=== PATIENT | female | born 1970 | race Caucasian/White ===

== ENCOUNTER → 2020-06-03 14:23 | Outpatient (BNVA) | payer BC, SELFPAY | PROVIDERS: PCP Internal Medicine; Visit Provider Hospitalist ==

== ENCOUNTER → 2020-12-03 09:27 | Outpatient (BNVA) | payer BC, MEDICARE, SELFPAY | PROVIDERS: PCP Internal Medicine; Visit Provider Hospitalist | DX: R91.8 Other nonspecific abnormal finding of lung field (principal) ==

== ENCOUNTER 2021-01-06 10:34 | Outpatient (REF) | payer BC, MEDICARE, SELFPAY ==
--- NOTE | ~2021-01-06 | CT_ITS ---
EXAMINATION: CT CHEST WITHOUT CONTRAST CLINICAL INFORMATION: Sarcoidosis COMPARISON: None TECHNIQUE: Multidetector volumetric CT imaging of the chest was done. Axial MIP volume rendering provided. Sagittal and coronal reformatted images were obtained. This CT examination was performed using dose optimization techniques as appropriate, variously including the following: *Automated exposure control *Adjustment of mA and/or kV according to patient size (this includes techniques or standardized protocols for targeted exams where dose is matched to indication/reason for exam; i.e. extremities or head) *Use of iterative reconstruction technique DLP: 245 mGy-cm FINDINGS: CORN GRINDER: Normal LUNGS: The lungs are clear with no evidence of inflammation or nodules. MEDIASTINUM: The mediastinum is normal. PLEURA: There is no pleural effusion. No pleural mass or thickening. AXILLA: No lymphadenopathy. UPPER ABDOMEN: The gallbladder has been removed. There may be diverticulosis of the colon. OSSEOUS STRUCTURES: There are degenerative changes of the spine. CT/CT chest wo con IMPRESSION: Normal chest CT. No evidence of sarcoidosis. Fleischner guidelines were followed.
== END 2021-01-06 10:35 | disposition home or self-care (01) ==
LOC: HO.CT 10:34
PROVIDERS: PCP Internal Medicine; Visit Provider Hospitalist
DX: D86.9 Sarcoidosis, unspecified (principal); R91.8 Other nonspecific abnormal finding of lung field
CPT/HCPCS: 71250

== ENCOUNTER → 2022-08-06 14:56 | Outpatient (BNVA) | payer BC, MEDICARE, SELFPAY | PROVIDERS: PCP Internal Medicine; Visit Provider Nurse Practitioner Family ==

== ENCOUNTER 2022-09-21 13:30 | Outpatient (REF) | payer BC, MEDICARE, SELFPAY ==
--- NOTE | ~2022-09-21 | CT_ITS ---
EXAMINATION: CT CHEST WITHOUT CONTRAST CLINICAL INFORMATION: Follow-up 2020 at which time diagnosis of sarcoidosis was questioned but CT was negative. COMPARISON: 01/06/2021 CT TECHNIQUE: Multidetector volumetric CT imaging of the chest was done. Axial MIP volume rendering provided. Sagittal and coronal reformatted images were obtained. This CT examination was performed using dose optimization techniques as appropriate, variously including the following: *Automated exposure control *Adjustment of mA and/or kV according to patient size (this includes techniques or standardized protocols for targeted exams where dose is matched to indication/reason for exam; i.e. extremities or head) *Use of iterative reconstruction technique DLP: 244 mGy-cm FINDINGS: DECK OFFICER: Negative LUNGS: Trachea and bronchi are patent. Bilateral patchy opacities have developed, in the anterior right upper lobe, 6:95, medial right lower lobe, 6:102, left upper lobe adjacent to the major fissure, 6:95 and left lower lobe, 6:131. No lung nodules. MEDIASTINUM: Unremarkable thyroid. Interval enlargement mediastinal lymph nodes. In the anterior mediastinum, 2 adjacent 8 mm lymph nodes are now seen. [place] of prevascular lymph nodes now measures 2.9 cm. Right paratracheal lymph and subcarinal lymph nodes each measure 1.7 cm in greatest diameter. There has also been enlargement of paracardiac lymph nodes, largest measuring 2.2 cm. Limited evaluation of the carine bilaterally without IV contrast but no definite lymphadenopathy appreciated. Small hiatal hernia. HEART AND GREAT VESSELS: Heart is not enlarged. No pericardial effusion. Degree of coronary calcifications: None. Aorta is nonaneurysmal with mild atherosclerotic calcifications of the arch and branch vessels. Nonenlarged pulmonary arteries. PLEURA: There is no pleural effusion. No pleural mass or thickening. AXILLA: No lymphadenopathy. UPPER ABDOMEN: Enlarged, but homogeneous appearing liver on noncontrast study. Distended debris-filled stomach. Status post cholecystectomy. OSSEOUS STRUCTURES: No osseous lesions. CT/CT chest wo IV con IMPRESSION: Interval development of irregular, patchy pulmonary opacities and mediastinal lymphadenopathy. Findings are nonspecific. Sarcoidosis remains in long list of differential diagnoses. Hepatomegaly. Fleischner guidelines were followed.
[2022-09-21 14:55] LABS: Basophils Absolute Auto 0.1 X10*3/uL (0.0-0.2); Basophils Percent Auto 0.7 % (0-2); Eosinophils Absolute Auto 0.6 X10*3/uL (0.0-0.4); Eosinophils Percent Auto 3.7 % (0-4); Hematocrit 35.6 % (37.0-47.0); Hemoglobin 11.6 g/dl (12.0-16.0); Imm Gran Abs Auto 0.11 X10*3/uL (0.00-0.03); Imm Gran Pct Auto 0.7 % (0.0-0.4); Lymphocytes Absolute Auto 6.2 X10*3/uL (1.2-4.9); Lymphocytes Percent Auto 40.8 % (20-40); MANUAL DIFF FLAG SCAN; Mean Corpuscular HGB Conc 32.6 g/dl (31.0-35.0); Mean Corpuscular Hemoglobin 27.2 pg (27.0-33.0); Mean Corpuscular Volume 83.6 fL (80.0-98.0); Mean Platelet Volume 9.6 fL (9.4-12.3); Monocytes Absolute Auto 0.9 X10*3/uL (0.1-1.2); Monocytes Percent Auto 6.1 % (2-11); Neutrophils Absolute Auto 7.3 x10*3/uL (2.0-8.3); Platelet Count 382 X10*3/uL (160-400); Red Blood Count 4.26 X10*6/uL (4.20-5.50); Red Cell Distribution Width 13.5 % (11.0-16.0); SCAN SMEAR FLAG 1; White Blood Count 15.1 X10*3/uL (4.8-10.8)
[2022-09-21 15:26] LABS: SLIDE REVIEW VERIFIED
[2022-09-21 15:39] LABS: Alanine Aminotransferase 12 U/L (0-31); Albumin Level 3.5 g/dL (3.5-5.0); Alkaline Phosphatase 113 U/L (39-117); Anion Gap 14 (12-20); Aspartate Amino Transferase 12 U/L (5-31); Bilirubin Total 0.3 mg/dL (0.0-1.0); Blood Urea Nitrogen 30 mg/dL (9-16); Carbon Dioxide 25 mmol/L (22-29); Chloride 100 mmol/L (96-108); Estimated Glomerular Filt Rate 36; Glucose Random 270 mg/dL (60-115); Potassium 3.1 mmol/L (3.3-5.1); Sodium 136 mmol/L (135-145); Total Protein 7.9 g/dL (6.5-8.0)
[2022-09-22 14:19] LABS: Immunoglobulin G Subclass 1 884 mg/dL (382-929); Immunoglobulin G Subclass 2 419 mg/dL (241-700); Immunoglobulin G Subclass 3 54 mg/dL (22-178); Immunoglobulin G Subclass 4 16.3 mg/dL (4-86); Immunoglobulin G Total 1361 mg/dL (600-1640)
[2022-09-22 15:54] LABS: IgA 747 mg/dL (47-310); IgG 1559 mg/dL (600-1640); IgM 199 mg/dL (50-300)
[2022-09-25 20:18] LABS: Angiotensin Converting Enzyme 91.9 U/L (9-67)
== END 2022-09-21 13:31 | disposition home or self-care (01) ==
LOC: HO.RESP 13:30
PROVIDERS: PCP Internal Medicine; Visit Provider Nurse Practitioner Family
DX: D86.9 Sarcoidosis, unspecified (principal); R91.8 Other nonspecific abnormal finding of lung field; J45.909 Unspecified asthma, uncomplicated
CPT/HCPCS: 36415; 71250; 80053; 82164; 82784; 85025; 94010; 94729

== ENCOUNTER 2022-09-27 14:24 | Outpatient (AMB) | payer BC, MEDICARE, SELFPAY ==
[2022-09-27 14:34] VITALS: BP 120/68; PULSE 86; O2SAT 90
--- NOTE | 2022-09-27 14:34 | MHC.OFFVIS ---
Intake Vital Signs 09/27/22 14:34 Height 5 ft 8 in BP 120/68 Blood Pressure Location Rt brachial Position Sitting Pulse 86 Pulse Source Pulse Oximeter Pulse Oximetry (%) 90 L Oxygen Delivery Method Room Air Intake Visit Reasons: follow up after CT/PFT Intake Note: pt is here for follow up of testing, she found the breathing test very difficult. Audiology Assistant Required: No Allergies dulaglutide [Trulicity] Allergy (Severe, Verified 09/27/22 14:38) Pancreatitis levofloxacin [Levaquin] Allergy (Severe, Verified 09/27/22 14:38) Rash PCN Allergy (Severe, Uncoded 09/27/22 14:38) Anaphylaxis Sulfa Drugs Allergy (Severe, Uncoded 09/27/22 14:38) Rash HPI HPI Comments History of Present Illness Details The patient is a 52-year-old woman with a known history of nodular sarcoid. She also has a history of diabetes. Since we last spoke the patient has continued to take to 6 tablets of methotrexate. She did try weaning down the Medrol to 1 tablet. However, she became symptomatic with worsening respiratory symptoms. Had dyspnea, coughing and wheezing. Moderate in severity. At which point she had to take a burst of steroids. She has only had to do that once over the summer. Right now she is back to baseline. We did review her CT scan of the chest that she had recently over the summer of 2017 at [facility] demonstrating stable pulmonary nodules with significant interval improvement. No evidence of any active disease at this time. 06/27/19 The patient has a telephone visit. Overall she is doing okay. She is complaining of increasing shortness of breath and wheezing at times. She had to increase her Medrol. In addition to that she has been taking additional methotrexate at times. At this point we can maximize methotrexate to a tablets a week. Hopefully also by doing so she can start weaning off the Medrol. Her sugars have been better controlled. Over her sarcoid also appears to be in reasonable control on the methotrexate. Therefore, the patient is able to continue to take her children and her family without any limitations from a medical standpoint. 10/04/2020 the patient is here for pulmonary follow-up visit. Since the last spoke she has had many issues. She had a stroke and had to have surgery. In addition to that she is dealing with significant ankle pain is likely going to have to have surgery for that as well. Believe she has a Charcot joint as per the patient's description. She continues on the methotrexate. She understands the methotrexate is immuno compromising. Therefore the patient has increased risk of infections. We did talk about considering to decrease the dose, but, she was symptomatic on the lower dose. She has not had a CT scan more than a year. Her pulmonary nodules were significant the time although the high got better with the methotrexate. The do need follow-up. I am hopeful that with him follow-up with the pulmonary nodules and hopefully decrease her methotrexate if possible. 09/27/2022 the patient is here for pulmonary follow-up visit. She has continued to have worsening shortness of breath cough and chest tightness and chest pain. Moderate severity. She had been on Medrol in addition to methotrexate but she stopped using her medication she initially did well and then her symptoms are coming back as far as her sarcoidosis is concerned. The patient did have an evaluation here and had a CT scan of the chest demonstrating mediastinal and hilar adenopathy in addition to some nodular opacities suggestive of sarcoidosis. In addition to that she had blood work including an elevated [place] level. Her renal functions also demonstrates some renal insufficiency. Therefore, the patient is stands that she may have multiple organ involvement in regards of her sarcoidosis. She needs to start therapy. She did well on methotrexate. She has also been on Medrol which seems to be helping her symptoms. [facility] Medical History (Updated 12/03/20 @ 20:09 by Micah Mackenzie MD) Asthma Bronchitis Dysphagia Pulmonary nodules Sarcoidosis Social History Patient Tobacco Use Status: Former Tobacco user Tobacco use type: Cigarette Years Smoked: 10 years Review of Systems Const Reports fatigue, Denies fever(s) and Denies night sweats ENT Reports Normal hearing present, Denies change in voice, Denies lip swelling, Denies mouth pain and Denies tongue swelling Card Denies chest pain and Reports dyspnea Resp Reports cough, Reports dyspnea and Reports wheezing Musc Reports abnormal gait, Reports arthralgias and Reports limited range of motion Neuro Reports Normal hearing present, Denies Neuro-related abnormal movements and Reports abnormal gait Psych Denies no additional complaints Endo Reports fatigue Bala/Lymph Denies easy bleeding and Denies lymphadenopathy Aller/Immun Denies lip swelling, Denies tongue swelling and Reports wheezing Physical Exam Vital Signs: Last Vital Signs Pulse 86 09/27/22 14:34 BP 120/68 09/27/22 14:34 Pulse Ox 90 L 09/27/22 14:34 Oxygen Delivery Method Room Air 09/27/22 14:34 Const General: cooperative, healthy appearing, comfortable, no acute distress, well developed and alert Nutritional Appearance: obese Orientation/consciousness: patient oriented x3 Limitations: wheelchair HEENT Head: Yes normal to inspection, Yes normocephalic and Yes atraumatic Ears: hearing grossly normal bilaterally and external ears normal Eyes General: appearance normal, both eyes and all related structures Eyelids: Yes eyelids normal Sclerae: sclerae normal EOM: EOMs intact bilaterally Neck Neck: Yes normal visual inspection and Yes no lymphadenopathy Lymphatic: no lymphadenopathy noted Chest Chest palpation & inspection: normal inspection of the chest Resp Effort & Inspection: normal respiratory effort, able to speak in complete sentences, no audible wheezes, no cough, no stridor, not tachypneic, no tripod positioning and no use of accessory muscles Auscultation: clear to auscultation bilaterally Cardio Jugular venous distension: no JVD Rate: regular rate Rhythm: regular rhythm Skin Other: warm, dry General skin exam: mottling Neuro General: patient oriented x3 Cranial nerves: Yes Normal hearing present Cognition (Neuro): normal cognition Extrem General: Yes no clubbing, cyanosis or edema Psych Appearance: grossly normal and well kempt Speech and movement: Normal speech and movement present and Clear speech present Affect: normal affect Attitude: cooperative Thought process: Normal thought process present Thought content: Normal thought content present Insight: Good insight present (Psych) Judgement: Good judgement present (Psych) Assessment & Plan Assessment & Plan (1) Sarcoidosis: Code(s): D86.9 - Sarcoidosis, unspecified (2) Pulmonary nodules: Code(s): R91.8 - Other nonspecific abnormal finding of lung field (3) Asthma: Code(s): J45.909 - Unspecified asthma, uncomplicated Qualifiers: Asthma severity: moderate Asthma persistence: persistent Asthma complication type: with acute exacerbation Qualified Code(s): J45.41 - Moderate persistent asthma with (acute) exacerbation Plan continue medrol 4mg daily start MTX 10mg weekly Folic acid continue respiratory therapy Will need to repeat bloodwork in 6-8 weeks F/U 6-8 weeks Orders: Orders Angiotensin Converting Enzyme Today D86.9 - Sarcoidosis, unspecified Complete Blood Count Auto Diff Today D86.9 - Sarcoidosis, unspecified Basic Metabolic Panel Today D86.9 - Sarcoidosis, unspecified Liver Panel Today D86.9 - Sarcoidosis, unspecified Erythrocyte Sedimentation Rate Today D86.9 - Sarcoidosis, unspecified Medications: New methotrexate sodium 10 mg (4 x 2.5 mg) PO QWEEK 16 tabs 8RF 28 days folic acid 1 mg PO DAILY 30 tabs 11RF budesonide-formoterol 160-4.5 mcg/actuation (Symbicort) 2 puffs inhalation BID 10.2 grams 11RF 30 days J44.9 - Chronic obstructive pulmonary disease, unspecified Changed From methylprednisolone 4 mg PO Q8H PRN 15 tabs 0RF shortness of breath or wheezing To methylprednisolone 4 mg PO DAILY PRN 30 tabs 6RF shortness of breath or wheezing 30 days Coding Level of Care Code Est Pt Level 4 (90459) Diagnoses Sarcoidosis D86.9 Pulmonary nodules R91.8 Asthma J45.41 Asthma severity: moderate Asthma persistence: persistent Asthma complication type: with acute exacerbation Time Spent (min) 20
== END 2022-09-27 15:09 | disposition home or self-care (01) ==
PROVIDERS: PCP Internal Medicine; Visit Provider Hospitalist
DX: D86.9 Sarcoidosis, unspecified (principal); R91.8 Other nonspecific abnormal finding of lung field; J45.41 Moderate persistent asthma with (acute) exacerbation
CPT/HCPCS: 99214

== ENCOUNTER → 2022-09-27 14:24 | Outpatient (BNVA) | payer BC, MEDICARE, SELFPAY | PROVIDERS: PCP Internal Medicine; Visit Provider Hospitalist ==

== ENCOUNTER 2022-11-12 12:48 | Outpatient (AMB) | payer BC, MEDICARE, SELFPAY ==
[2022-11-12 12:59] VITALS: BP 158/90; PULSE 86; O2SAT 98
--- NOTE | 2022-11-12 12:59 | MHC.OFFVIS ---
Intake Vital Signs 11/12/22 12:59 Height 5 ft 8 in BMI Reason not done Patient refused/unable BP 158/90 H Blood Pressure Location Rt brachial Position Sitting Pulse 86 Pulse Source Pulse Oximeter Pulse Oximetry (%) 98 Comment Pt stated weight is 198 lbs Intake Visit Reasons: Sarcoidosis Intake Note: New pt presents today for consult to discuss Sarcoidosis, referred by pulm. Academy Education Director Required: No Accompanied by: Spouse Carlos Allergies dulaglutide [Trulicity] Allergy (Severe, Verified 11/12/22 13:11) Pancreatitis levofloxacin [Levaquin] Allergy (Severe, Verified 11/12/22 13:11) Rash PCN Allergy (Severe, Uncoded 11/12/22 13:11) Anaphylaxis Sulfa Drugs Allergy (Severe, Uncoded 11/12/22 13:11) Rash Medication List - Last Reconciled 11/12/22 by Kem Silva MD albuterol sulfate 90 mcg/actuation 2 puffs inhalation Q6H PRN albuterol sulfate 2.5 mg (3 mL) inhalation Q6H PRN 30 days aspirin 81 mg PO DAILY benzonatate 100 mg PO BID PRN 30 days budesonide-formoterol 160-4.5 mcg/actuation (Symbicort) 2 puffs inhalation BID 30 days ciprofloxacin HCl 500 mg PO BID dextromethorphan-guaifenesin 30-600 mg (Mucinex DM) 1 tab PO Q12H PRN doxycycline hyclate 100 mg PO BID 10 days folic acid 1 mg PO DAILY methotrexate sodium 10 mg (4 x 2.5 mg) PO QWEEK 28 days methylprednisolone 4 mg PO DAILY PRN 30 days prednisone PO daily; Take 2 tabs daily x 5 days, then 1 tablet daily x 5 days 10 days HPI HPI Comments History of Present Illness Details This is a 52-year-old female with past medical history of sarcoidosis who presents for follow-up. Per patient, Back in 2014 patient was found to have a mass in her upper chest, a biopsy was performed which was inconclusive, postoperatively patient was found to have multiple necrotic lymph nodes in her abdomen and pelvis, she went for an exploratory laparotomy and multiple lymph nodes were removed. At that time she was diagnosed with sarcoidosis. She was on Medrol initially then methotrexate was added afterwards. Per patient she had multiple large lung nodules. She was taking Medrol 4 mg daily and methotrexate 4 tabs once weekly for years until 2020 when her Medrol and methotrexate were discontinued. A few months ago she started having a flare-up of her sarcoidosis. She was restarted on Medrol 4 mg daily and methotrexate 4 tabs once weekly. She states that she also gets prednisone tapers as needed for flare-ups. Back in August she was diagnosed with strep throat, she took antibiotics, she had another strep infection a few weeks ago. Patient stated that she had a right ankle fracture a few years ago and postop she developed Charcot's joint right foot, she can hardly walk which is why she is in a wheelchair. She also stated that she had 2 strokes 3 years ago. Mentions that she had studies for peripheral vascular disease for both lower extremities and was told that she had good circulation She states that back in September she was starting to have more joint pain which was improved with methotrexate and Medrol, states that prednisone however causes whole body swelling. States that her aunt has MS. [facility] Medical History (Updated 11/12/22 @ 14:22 by Kem Silva MD) Asthma Bronchitis Dysphagia Sarcoidosis Pulmonary nodules Family History Daughter No problems noted. Maternal Aunt Multiple sclerosis Social History Patient Tobacco Use Status: Former Tobacco user Tobacco use type: Cigarette Years Smoked: 10 years Female Reproductive History Menstrual Total pregnancies: 3 Ab spontaneous: 1 Review of Systems Const Reports fatigue and Reports weakness Eyes Reports dry eyes and Reports itchy eyes ENT Reports dysphagia and Reports dry mouth Card Reports dyspnea and Reports dyspnea on exertion Resp Reports cough, Reports dyspnea and Reports dyspnea on exertion GI Reports dysphagia Musc Reports arthralgias, Reports joint swelling, Reports numbness, Reports radiating pain into limb and Reports tingling Skin/Breast Reports alopecia and Reports unusual bruising Neuro Reports numbness, Reports tingling and Reports weakness Psych Reports abnormal sleep pattern, Reports anxiety and Reports depression Endo Reports fatigue Aller/Immun Reports itchy eyes Physical Exam Const General: cooperative Nutritional Appearance: obese Orientation/consciousness: patient oriented x3 Limitations: wheelchair HEENT Head: Yes normocephalic and Yes atraumatic Mouth: moist mucous membranes Resp Effort & Inspection: normal respiratory effort and able to speak in complete sentences Cardio Rate: regular rate GI Palpation (GI): Soft to palpation and nontender Skin Other: Purplish discoloration of her legs Cool to touch Neuro General: patient oriented x3 Extrem Other: Mild swollen left 2nd and 3rd MCPs Positive Tinel sign on the left with electric shock sensation going to the left thumb and left ring finger (? Cubital tunnel) Negative Spurling's test No active synovitis otherwise Normal range of motion of both hands, elbows, shoulders without pain Normal nailfold capillaroscopy Assessment & Plan Assessment & Plan (1) Sarcoidosis: Code(s): D86.9 - Sarcoidosis, unspecified Plan: This is a 52-year-old female with past medical history of sarcoidosis diagnosed in 2014, according to patient causing lung nodules, lung disease, chest, abdomen and pelvis lymphadenopathy, Treated with Medrol and methotrexate, Medrol and methotrexate were discontinued in 2020. A few months ago patient started having a flare-up of her disease with redevelopment of hilar adenopathy and patchy opacities. She was restarted on Medrol and methotrexate. Will check labs to evaluate disease activity and rule out overlap with other autoimmune diseases. Advised patient to get labs done as soon as she feels that her current infection is resolved. Would not increase methotrexate dose if her kidney function remains the same. Discussed TNF inhibitors. Patient has a follow-up appointment with an cement mason [facility] soon, advised patient to let them know that she has sarcoidosis as it can affect the eyes Check a 2D echo Check bilateral hand and wrist x-rays to evaluate for inflammatory arthropathy Continue meds as prescribed by Dr. Mackenzie for now Follow-up in 1 (2) roasterman systemic steroid user: Code(s): Z79.52 - [facility] (current) use of systemic steroids Plan: Check a DEXA scan (3) Numbness of left hand: Code(s): R20.0 - Anesthesia of skin Plan: Will order EMG/NCV Plan I spent 63 minutes reviewing patient's chart, evaluating patient, ordering diagnostic workup, counseling patient and documenting in the chart Orders: Orders XR hand wrist RT Today D86.9 - Sarcoidosis, unspecified C Reactive Protein Today D86.9 - Sarcoidosis, unspecified Creatine Kinase Total Today D86.9 - Sarcoidosis, unspecified Erythrocyte Sedimentation Rate Today D86.9 - Sarcoidosis, unspecified Hepatitis A,B,C Profile Today Z11.59 - Encounter for screening for other viral diseases Immunofixation Pnl, Serum Today D86.9 - Sarcoidosis, unspecified Angiotensin Converting Enzyme Today D86.9 - Sarcoidosis, unspecified Lysozyme, Serum Today D86.9 - Sarcoidosis, unspecified Vitamin D 1,25 OH LC/MS/MS Today D86.9 - Sarcoidosis, unspecified CA echo transthoracic complete Today D86.9 - Sarcoidosis, unspecified XR hand wrist LT Today D86.9 - Sarcoidosis, unspecified Complete Blood Count Auto Diff Today D86.9 - Sarcoidosis, unspecified Comprehensive Met. Panel Today D86.9 - Sarcoidosis, unspecified T Spot TB Today Z11.7 - Encounter for testing for latent tuberculosis infection ANCA Vasculitides Today I77.6 - Arteritis, unspecified Thiopurine Methyltransferase Today Z51.81 - Encounter for therapeutic drug level monitoring, Z79.624 - roasterman (current) use of inhibitors of nucleotide synthesis Vitamin D 25-OH (D2 and D3) Today D86.9 - Sarcoidosis, unspecified QIAN Reflex Titer and Pattern Today D86.9 - Sarcoidosis, unspecified NE electromyogram (EMG) Today G56.00 - Carpal tunnel syndrome, unspecified upper limb XR DEXA axial skeleton Today Z79.52 - [facility] (current) use of systemic steroids Coding Level of Care Code New Pt Level 5 (36599) Diagnoses Sarcoidosis D86.9 roasterman systemic steroid user Z79.52 Numbness of left hand R20.0
== END 2022-11-12 14:09 | disposition home or self-care (01) ==
PROVIDERS: PCP Internal Medicine; Visit Provider Student in an Organized Health Care Education/Training Program
DX: D86.9 Sarcoidosis, unspecified (principal); Z79.52 Long term (current) use of systemic steroids; R20.0 Anesthesia of skin
CPT/HCPCS: 99205

== ENCOUNTER → 2022-11-12 12:48 | Outpatient (BNVA) | payer BC, MEDICARE, SELFPAY | PROVIDERS: PCP Internal Medicine; Visit Provider Student in an Organized Health Care Education/Training Program ==

== ENCOUNTER → 2023-01-04 08:09 | Outpatient (REF) | payer BC, MEDICARE, SELFPAY ==
--- NOTE | 2023-01-04 08:16 | CA_ITS ---
Transthoracic Echocardiogram Patient (Last, First, Middle): Nikky Richey, Gender: Female Date of : 1970 Age: 52 Procedure Date: 01/04/2023 Procedure Type: Transthoracic Echocardiogram Location: OP Height: 172.72 cm Weight: 88.45 kg BSA: 2.02 m2 Heart Rate: bpm BP: 122 / 68 mmHg Marking Machine Tender: Referring MD: Kem Silva MD Physician President: Con Mitchell MD Symptoms: D86.9 - Sarcoidosis, unspecified Study Quality: Fair ECG Rhythm: Sinus Conclusions: - 1. Normal LV ejection fraction with LVEF of 55-60% with moderate LVH with impaired relaxation filling pattern 2. Normal cardiac valvular Doppler 3. Normal RV systolic pressure 4. No gross pericardial effusion Findings Left Ventricle Normal left ventricular size and systolic function. There is moderately increased left ventricular wall thickness. The visually estimated ejection fraction is between 55-60%. Spectral Doppler is indicative of an impaired relaxation filling pattern. E/E prime ratio is between 8 and 15 consistent with indeterminate filling pressures. There is mildly increased gradient across the mid cavity on Valsalva maneuver suggestive of mild obstructive physiology. Possible basal inferior and basal inferoseptal wall motion abnormality cannot be entirely ruled out on the study. Right Ventricle Normal right ventricular cavity size and systolic function. Atria The left atrium is likely dilated. Interatrial shunt cannot be excluded. The right atrium is normal in size. Aortic Valve The aortic valve structure and function is likely normal. There is no aortic valve stenosis. There is no aortic valve regurgitation. Mitral Valve Normal mitral valve structure and function. There is trace mitral valve regurgitation. There is no mitral valve stenosis. Pulmonic Valve The pulmonic valve is likely normal. Tricuspid Valve Normal tricuspid valve structure. There is trace tricuspid valve regurgitation. The right ventricular systolic pressure is normal. The right ventricular systolic pressure is 20 mmHg. Normal right atrial pressure. There is no evidence of pulmonary hypertension. Great Vessels All visible segments of the aorta are normal in size. The pulmonary artery was not well visualized. There is no dilatation of the ascending aorta. Venous The inferior vena cava is normal in size and collapses greater than 50% with inspiration. Pericardium/Pleural There is no evidence of pericardial effusion. Prior Study Comparison No prior study available for comparison. Consider advanced imaging such as cardiac MRI if suspicion for cardiac involvement Measurements 2D Linear Measurements IVSd: 1.40 0.6-0.9/0.6-1.0 cm LVIDd: 2.61 3.9-5.3/4.2-5.9 cm LVIDd Index: 1.29 2.4-3.2/2.2-3.1 cm/m2 LVIDs: 1.73 2.0-3.6 cm LVPWd: 1.44 0.7-1.1 cm Ao Root: 3.20 2.1-3.5 cm LA Diam: 3.90 2.7-3.8/3.0-4.0 cm LAIDs Index: 1.93 1.5-2.3 cm/m2 LV Mass: 149.86 67-162/88-224 g LV Mass Index: 74.19 43-95/49-115 g/m2 LVOT Diam: 2.20 3.0+(-)1.3 cm Mitral Valve MV Pk E: 0.48 MV PK A: 0.74 MV Decel Time: 248.00 E/A: 0.60 E'Lateral: 5.22 E'Medial: 6.42 E/E' Med: 7.40 E/E' Lat: 9.10 PHT: 73.00 MVA PHT: 3.01 Decel Noble: 1.91 Aortic Valve AoV Pk Yao: 1.11 AoV Mn Yao: 0.67 AoV VTI: 0.25 AoV Pk Grad: 5.00 Aov Mn Grad: 2.00 DARYL Cont.VTI: 2.70 LVOT LVOT Pk Yao: 0.71 LVOT Mn Yao: 0.50 LVOT VTI: 0.17 LVOT Pk Grad: 2.00 LVOT Mn Grad: 1.00 LVOT Diam: 2.20 LVOT Area: 3.80 Diastolic Function MV Pk E: 0.48 MV Pk A: 0.74 E/A: 0.60 E'Medial: 6.42 E/E' Med: 7.40 E' Laterial: 5.22 E/E' Lat: 9.10 Right Ventricle TAPSE (mm): 18.00 TVS' Yao: 12.00 Tricuspid Valve TR Pk Yao: 2.08 TR Pk Grad: 17.00 RA Press: 3.00 RVSP: 20.00 Great Vessels Aorta Ao Root-2D: 3.20 2.0-3.7 cm Ao Asc: 3.20 2.1-3.4 cm Pulmonary Valve PV Pk Yao: 0.84 Peak PV Grad: 3.00 Updated in Other Vendor System with Status of Final Con Mitchell MD electronically signed on 01/04/2023 6:45:55 PM with status of Final
== END ==
LOC: HO.CARD 08:09
PROVIDERS: PCP Internal Medicine; Visit Provider Student in an Organized Health Care Education/Training Program
DX: D86.9 Sarcoidosis, unspecified (principal)
CPT/HCPCS: 93306

== ENCOUNTER → 2023-01-04 08:16 | Outpatient (BNV) | payer BC, MEDICARE, SELFPAY | PROVIDERS: PCP Internal Medicine; Visit Provider Internal Medicine Cardiovascular Disease | DX: D86.9 Sarcoidosis, unspecified (principal) | CPT/HCPCS: 93306 ==

== ENCOUNTER 2023-01-13 09:56 | Outpatient (REF) | payer BC, MEDICARE, SELFPAY ==
--- NOTE | ~2023-01-13 | MM_ITS ---
EXAMINATION: BONE DENSITOMETRY CLINICAL INDICATION: Long-term (current) use of systemic steroids. COMPARISON: This is the patient's baseline examination. TECHNIQUE: Using a [employer]Call (roll.to) DXA System (software version: 13.1) manufactured by [employer], dual-energy x-ray absorptiometry was performed of the lumbar spine and left hip. The images are of good technical quality. Summary results are attached. FINDINGS: LEFT FEMUR, NECK: BMD 0.910 g/cm2, Z-score -0.5, T-score -0.9, normal. LEFT FEMUR, TOTAL: BMD 1.064 g/cm2, Z-score 0.5, T-score 0.4, normal. AP SPINE L1-L3 (excluding L4): The data of L1-L4 has been changed to exclude the L4 vertebral body, because metallic hardware at this level may cause overestimation of lumbar spine density. BMD 1.680 g/cm2, Z-score 4.1, T-score 4.3, normal. IDENTIFIED RISK FACTORS: Early menopause, glucocorticoids (chronic), history of fracture (adult), low calcium intake, recurrent falls, secondary osteoporosis. HISTORY OF FRACTURE: Other. MEDICATIONS: None listed. MM/XR DEXA axial skeleton IMPRESSION: 1. DIAGNOSIS: Normal bone density based on the lowest T-score value of -0.9 in the femoral neck applying World Health Organization criteria. 2. 10-YEAR FRACTURE RISK PREDICTION, FRAX: According to the guidelines, FRAX calculation should only be performed on patients in the osteopenia bone density category. Therefore, FRAX was not performed on this patient. 3. Treatment Recommendations: NOF guidelines recommend consideration for treatment in postmenopausal women and men age 50 and older presenting with the following: -A hip or vertebral (clinical or morphometric) fracture. -T-score less than or equal to -2.5 at the femoral neck or spine after appropriate evaluation to exclude secondary causes. -Low bone mass at the hip or spine and a 10-year fracture probability by FRAX of greater than or equal to 3% for hip fracture or greater than or equal to 20% for major osteoporotic fracture based on the [place] adapted WHO algorithm. 4. Other Recommendations: All treatment decisions require clinical judgment and consideration of individual patient factors, including patient preferences, comorbidities, previous drug use, risk factors not captured in the FRAX model (e.g. frailty, falls, vitamin D deficiency, increased bone turnover, interval significant decline in bone density) and possible under or overestimation of fracture risk by FRAX. FUTURE SCAN RECOMMENDATION: People with diagnosed cases of osteoporosis or at high risk for fracture should have regular bone mineral density tests. For patients eligible for Medicare, routine testing is allowed once every 2 years. The testing frequency can be increased to one year for patients who have rapidly progressing disease, those who are receiving or discontinuing medical therapy to restore bone mass, or have additional risk factors.
== END 2023-01-13 09:57 | disposition home or self-care (01) ==
LOC: HO.MAMMO 09:56
PROVIDERS: PCP Internal Medicine; Visit Provider Student in an Organized Health Care Education/Training Program
DX: Z13.820 Encounter for screening for osteoporosis (principal); Z79.52 Long term (current) use of systemic steroids; Z78.0 Asymptomatic menopausal state
CPT/HCPCS: 77080

== ENCOUNTER 2023-02-16 13:31 | Outpatient (REF) | payer BC, MEDICARE, SELFPAY ==
--- NOTE | 2023-02-16 13:34 | EMG_ITS ---
Chief complaint: Chronic left hand numbness affecting all fingers History of sarcoidosis and stroke, left hemiparesis Reason for referral: Evaluate for Carpal Tunnel Syndrome versus ulnar neuropathy Referred by: Dr. Silva Procedure done: Left upper extremity NCS/EMG Precautions and/or limitations: Previous neck surgery The limb temperature was monitored continuously and remained between 32-36 degrees C during the performance of the NCS. Ulnar motor NCS was performed with moderate elbow flexion between 70-90 degrees, with across-elbow distance of 10 cm. Nerve Conduction Studies Anti Sensory Summary Table ?Stim Site NR Onset (ms) Norm Onset (ms) Peak (ms) Norm Peak (ms) O-P Amp (?V) Norm O-P Amp Site1 Site2 Delta-0 (ms) Dist (cm) Yao (m/s) Norm Yao (m/s) Left Median Anti Sensory (2nd Digit) Wrist NR <3.6 >10 Wrist 2nd Digit 14.0 Left Radial Anti Sensory (Thumb) Forearm ? 2.0 2.9 <3.1 9.3 Forearm Thumb 2.0 0.0 Left Ulnar Anti Sensory (5th Digit) Wrist NR <3.7 >15.0 Wrist 5th Digit 14.0 Motor Summary Table ?Stim Site NR Onset (ms) Norm Onset (ms) O-P Amp (mV) Norm O-P Amp iAmp (mV) Amp (1st) (%) Site1 Site2 Delta-0 (ms) Dist (cm) Yao (m/s) Norm Yao (m/s) Left Median Motor (Abd Poll Brev) Wrist ? 7.3 <3.9 5.4 >4.5 6.6 100.0 Elbow Wrist 5.6 0.0 >45 Elbow ? 12.9 5.1 6.1 94.4 Left Ulnar Motor (Abd Dig Minimi) Wrist ? 4.2 <3.0 5.5 >5 6.8 100.0 B Elbow Wrist 4.2 20.0 48 >45 B Elbow ? 8.4 5.4 6.9 98.2 A Elbow B Elbow 3.6 10.0 28 >45 A Elbow ? 12.0 1.2 1.6 21.8 EMG ?Side Muscle Nerve Root Ins Act Fibs Psw Amp Dur Poly Recrt Int Pat Comment Left 1stDorInt Ulnar C8-T1 Incr 1+ 1+ Nml Nml 0 Nml Complete Left Biceps Musculocut C5-6 Nml Nml Nml Nml Nml 0 Nml Complete Left Triceps Radial C6-7-8 Nml Nml Nml Nml Nml 0 Nml Complete Left Deltoid Axillary C5-6 Nml Nml Nml Nml Nml 0 Nml Complete Left FlexDigProf Ulnar C8,T1 Nml Nml Nml Nml Nml 0 Nml Complete Left FlexCarpiUln Ulnar C8,T1 Incr 1+ 1+ Nml Nml 0 Nml Complete FINDINGS: Left median motor nerve showed prolonged distal latency, normal amplitude and normal conduction velocity. Left ulnar motor nerve showed prolonged distal latency, normal amplitude and slow conduction velocity across elbow. Left median and ulnar sensory nerves showed no response. All other nerves tested were within normal. Concentric needle EMG was performed in selected muscles of the left upper extremity. Study revealed signs of electric abnormalities as shown in the table below. Left FDI and FCU showed increased insertional activity, PSWs and fibrillations. IMPRESSION: 1. This is an abnormal study. 2. There is electrodiagnostic evidence for left moderate-severe median neuropathy at the wrist, consistent with carpal tunnel syndrome. 3. There is electrodiagnostic evidence for left ulnar neuropathy at the elbow. 4. There is no electrodiagnostic evidence for brachial plexopathy, or cervical radiculopathy. Thank you for your kind referral. Mya Morales MD, LEONOR Board Certified, [place] Board of [employer] Medicine and Rehabilitation (ABPMR) Board Certified, [place] Board of Electrodiagnostic Medicine (ABEM) CODIN [id number] MTDD
== END 2023-02-16 13:32 | disposition home or self-care (01) ==
LOC: HO.NEURO 13:31
PROVIDERS: PCP Internal Medicine; Visit Provider Student in an Organized Health Care Education/Training Program
DX: G56.02 Carpal tunnel syndrome, left upper limb (principal)
CPT/HCPCS: 95886; 95909

== ENCOUNTER → 2023-02-16 13:34 | Outpatient (BNV) | payer BC, MEDICARE, SELFPAY | PROVIDERS: PCP Internal Medicine; Visit Provider Physical Medicine & Rehabilitation | DX: G56.02 Carpal tunnel syndrome, left upper limb (principal); G56.22 Lesion of ulnar nerve, left upper limb | CPT/HCPCS: 95886; 95909 ==

== ENCOUNTER 2023-03-23 11:06 | Outpatient (AMB) | payer BC, MEDICARE, SELFPAY ==
[2023-03-23 11:28] VITALS: PULSE 79; O2SAT 97; BMI 30.1
--- NOTE | 2023-03-23 11:28 | A.OFFVIS_ITS ---
Intake Vital Signs 03/23/23 11:28 Height 5 ft 8 in Weight 198 lb BMI 30.1 Pulse 79 Pulse Source Pulse Oximeter Pulse Oximetry (%) 97 Oxygen Delivery Method Room Air Intake Visit Reasons: Sarcoidosis Manager Discovery Required: No Allergies dulaglutide [Trulicity] Allergy (Severe, Verified 03/23/23 11:30) Pancreatitis levofloxacin [Levaquin] Allergy (Severe, Verified 03/23/23 11:30) Rash PCN Allergy (Severe, Uncoded 03/23/23 11:30) Anaphylaxis Sulfa Drugs Allergy (Severe, Uncoded 03/23/23 11:30) Rash HPI HPI Comments History of Present Illness Details The patient is a 52-year-old woman with a known history of nodular sarcoid. She also has a history of diabetes. Since we last spoke the patient has continued to take to 6 tablets of methotrexate. She did try weaning down the Medrol to 1 tablet. However, she became symptomatic with worsening respiratory symptoms. Had dyspnea, coughing and wheezing. Moderate in severity. At which point she had to take a burst of steroids. She has only had to do that once over the summer. Right now she is back to baseline. We did review her CT scan of the chest that she had recently over the summer of 2017 at [facility] demonstrating stable pulmonary nodules with significant interval improvement. No evidence of any active disease at this time. 06/27/19 The patient has a telephone visit. Overall she is doing okay. She is complaining of increasing shortness of breath and wheezing at times. She had to increase her Medrol. In addition to that she has been taking additional methotrexate at times. At this point we can maximize methotrexate to a tablets a week. Hopefully also by doing so she can start weaning off the Medrol. Her sugars have been better controlled. Over her sarcoid also appears to be in reasonable control on the methotrexate. Therefore, the patient is able to continue to take her children and her family without any limitations from a medical standpoint. 10/04/2020 the patient is here for pulmonary follow-up visit. Since the last spoke she has had many issues. She had a stroke and had to have surgery. In addition to that she is dealing with significant ankle pain is likely going to have to have surgery for that as well. Believe she has a Charcot joint as per the patient's description. She continues on the methotrexate. She understands the methotrexate is immuno compromising. Therefore the patient has increased risk of infections. We did talk about considering to decrease the do se, but, she was symptomatic on the lower dose. She has not had a CT scan more than a year. Her pulmonary nodules were significant the time although the high got better with the methotrexate. The do need follow-up. I am hopeful that with him follow-up with the pulmonary nodules and hopefully decrease her methotrexate if possible. 09/27/2022 the patient is here for pulmonary follow-up visit. She has continued to have worsening shortness of breath cough and chest tightness and chest pain. Moderate severity. She had been on Medrol in addition to methotrexate but she stopped using her medication she initially did well and then her symptoms are coming back as far as her sarcoidosis is concerned. The patient did have an evaluation here and had a CT scan of the chest demonstrating mediastinal and hilar adenopathy in addition to some nodular opacities suggestive of sarcoidosis. In addition to that she had blood work including an elevated Bairon level. Her renal functions also demonstrates some renal insufficiency. Therefore, the patient is stands that she may have multiple organ involvement in regards of her sarcoidosis. She needs to start therapy. She did well on methotrexate. She has also been on Medrol which seems to be helping her symptoms. 03/23/2023 the patient is here for a pulmonary follow-up visit. The patient has been having some difficulties have to losing her daughter. Therefore after the big loss the patient has stopped taking care of herself. She is stopped most of her medications and also was really not following up with providers. However, she did realize that she needs to improve her health because she does have to take care of her 2 grandchildren. So therefore she has been more proactive now with the health. Recently she was having issues with strep throat. She was placed on antibiotics for that. I did offer her the Prevnar 20 vaccine to cover for strep pneumo the patient did agree but then she left. She can always cut down the pharmacy. The patient has been on the methotrexate although she stopped it when she got sick with the illness. And she has also been on methylprednisolone. The patient will go back on the methotrexate and will plan to repeat her imaging studies and blood work in 4-6 months. [facility] Medical History (Updated 02/17/23 @ 16:00 by Kem Silva MD) Asthma Bronchitis Dysphagia Sarcoidosis Pulmonary nodules Family History Daughter No problems noted. Maternal Aunt Multiple sclerosis Social History Patient Tobacco Use Status: Former Tobacco user Tobacco use type: Cigarette Years Smoked: 10 years Review of Systems Const Reports fatigue, Denies fever(s) and Denies night sweats ENT Reports Normal hearing present, Denies change in voice, Denies lip swelling, Denies mouth pain and Denies tongue swelling Card Denies chest pain and Reports dyspnea Resp Reports cough, Reports dyspnea and Reports wheezing Musc Reports abnormal gait, Reports arthralgias and Reports limited range of motion Neuro Reports Normal hearing present, Denies Neuro-related abnormal movements and Reports abnormal gait Psych Denies no additional complaints Endo Reports fatigue Bala/Lymph Denies easy bleeding and Denies lymphadenopathy Aller/Immun Denies lip swelling, Denies tongue swelling and Reports wheezing Physical Exam Vital Signs: Last Vital Signs Pulse 79 03/23/23 11:28 Pulse Ox 97 03/23/23 11:28 Oxygen Delivery Method Room Air 03/23/23 11:28 BMI result Body Mass Index 30.1 Const General: cooperative, healthy appearing, comfortable, no acute distress, well developed and alert Nutritional Appearance: obese Orientation/consciousness: patient oriented x3 Limitations: wheelchair HEENT Head: Yes normal to inspection, Yes normocephalic and Yes atraumatic Ears: hearing grossly normal bilaterally and external ears normal Eyes General: appearance normal, both eyes and all related structures Eyelids: Yes eyelids normal Sclerae: sclerae normal EOM: EOMs intact bilaterally Neck Neck: Yes normal visual inspection and Yes no lymphadenopathy Lymphatic: no lymphadenopathy noted Chest Chest palpation & inspection: normal inspection of the chest Resp Effort & Inspection: normal respiratory effort, able to speak in complete sentences, no audible wheezes, no cough, no stridor, not tachypneic, no tripod positioning and no use of accessory muscles Auscultation: diminished lung sounds Cardio Jugular venous distension: no JVD Rate: regular rate Rhythm: regular rhythm Skin Other: warm, dry General skin exam: mottling Neuro General: patient oriented x3 Cranial nerves: Yes Normal hearing present Cognition (Neuro): normal cognition Extrem General: Yes no clubbing, cyanosis or edema Psych Appearance: grossly normal and well kempt Speech and movement: Normal speech and movement present and Clear speech present Affect: normal affect Attitude: cooperative Thought process: Normal thought process present Thought content: Normal thought content present Insight: Good insight present (Psych) Judgement: Good judgement present (Psych) Assessment & Plan Assessment & Plan (1) Sarcoidosis: Code(s): D86.9 - Sarcoidosis, unspecified (2) Pulmonary nodules: Code(s): R91.8 - Other nonspecific abnormal finding of lung field (3) Asthma: Code(s): J45.909 - Unspecified asthma, uncomplicated Qualifiers: Asthma complication type: with acute exacerbation Asthma persistence: persistent Asthma severity: moderate Qualified Code(s): J45.41 - Moderate persistent asthma with (acute) exacerbation Plan continue medrol 4mg daily restart MTX 10mg weekly Folic acid continue respiratory therapy Will need to repeat bloodwork in [address] chest 4 months F/U 4-6 months Orders: Orders Angiotensin Converting Enzyme 4 Months R91.8 - Other nonspecific abnormal finding of lung field Erythrocyte Sedimentation Rate 4 Months R91.8 - Other nonspecific abnormal finding of lung field Liver Panel 4 Months R91.8 - Other nonspecific abnormal finding of lung field Complete Blood Count Auto Diff 4 Months R91.8 - Other nonspecific abnormal finding of lung field Basic Metabolic Panel 4 Months R91.8 - Other nonspecific abnormal finding of lung field CT chest wo IV con 4 Months R91.8 - Other nonspecific abnormal finding of lung field Coding Level of Care Code Est Pt Level 4 (16709) Diagnoses Sarcoidosis D86.9 Pulmonary nodules R91.8 Moderate persistent asthma with acute exacerbation J45.41 Asthma complication type: with acute exacerbation Asthma persistence: persistent Asthma severity: moderate Time Spent (min) 17
== END 2023-03-23 11:53 | disposition home or self-care (01) ==
PROVIDERS: PCP Internal Medicine; Visit Provider Hospitalist
DX: D86.9 Sarcoidosis, unspecified (principal); R91.8 Other nonspecific abnormal finding of lung field; J45.41 Moderate persistent asthma with (acute) exacerbation
CPT/HCPCS: 99214

== ENCOUNTER 2023-03-23 11:06 | Outpatient (REF) | payer BC, MEDICARE, SELFPAY ==
[2023-03-23 12:26] LABS: MANUAL DIFF FLAG NO
[2023-03-23 13:00] LABS: Basophils Absolute Auto 0.1 X10*3/uL (0.0-0.2); Basophils Percent Auto 0.8 % (0-2); Eosinophils Absolute Auto 0.5 X10*3/uL (0.0-0.4); Eosinophils Percent Auto 3.6 % (0-4); Hematocrit 34.2 % (37.0-47.0); Imm Gran Abs Auto 0.11 X10*3/uL (0.00-0.03); Imm Gran Pct Auto 0.8 % (0.0-0.4); Lymphocytes Absolute Auto 2.7 X10*3/uL (1.2-4.9); Lymphocytes Percent Auto 20.2 % (20-40); Mean Corpuscular HGB Conc 32.2 g/dl (31.0-35.0); Mean Corpuscular Hemoglobin 27.4 pg (27.0-33.0); Mean Corpuscular Volume 85.1 fL (80.0-98.0); Mean Platelet Volume 9.9 fL (9.4-12.3); Monocytes Absolute Auto 0.7 X10*3/uL (0.1-1.2); Monocytes Percent Auto 5.4 % (2-11); Neutrophils Absolute Auto 9.1 x10*3/uL (2.0-8.3); Neutrophils Percent Auto 69.2 % (45-73); Platelet Count 392 X10*3/uL (160-400); Red Blood Count 4.02 X10*6/uL (4.20-5.50); Red Cell Distribution Width 13.5 % (11.0-16.0); White Blood Count 13.2 X10*3/uL (4.8-10.8)
[2023-03-23 13:25] LABS: Alanine Aminotransferase 12 U/L (0-31); Albumin Level 3.5 g/dL (3.5-5.0); Alkaline Phosphatase 115 U/L (39-117); Anion Gap 12 (12-20); Aspartate Amino Transferase 15 U/L (5-31); Bilirubin Total 0.3 mg/dL (0.0-1.0); Blood Urea Nitrogen 25 mg/dL (9-16); C Reactive Protein 0.91 mg/dL (< or = 0.50); Calcium 9.2 mg/dL (8.4-10.2); Carbon Dioxide 25 mmol/L (22-29); Chloride 105 mmol/L (96-108); Estimated Glomerular Filt Rate 52; Glucose Random 183 mg/dL (60-115); Potassium 3.6 mmol/L (3.3-5.1); Sodium 138 mmol/L (135-145); Total Protein 7.7 g/dL (6.5-8.0)
[2023-03-23 13:38] LABS: Erythrocyte Sedimentation Rate 86 MM/HR (0-20)
[2023-03-24 03:55] LABS: HBS Num1 0.43 mIU/mL (0-7.99); HBc Num1 0.15 S/CO (0.00-0.79); HBsAGNum1 0.32 S/CO (0.00-0.99); Hepatitis B Core Antibody Nonreactive (Nonreactive); Hepatitis B Surface Antigen Negative (Negative); ~HepC Num1 0.14 S/CO (0.00-0.79); ~Hepatitis B Surface Antibody NONREACTIVE (Nonreactive); ~Hepatitis C Antibody Nonreactive (Nonreactive)
[2023-03-24 04:49] LABS: Hepatitis A Antibody IgM 0.18 Index (0-0.79); ~Hepatitis A Antibody IgM Nonreactive (Nonreactive)
[2023-03-24 14:29] LABS: IgA 723 mg/dL (47-310); IgG 1377 mg/dL (600-1640); IgM 193 mg/dL (50-300)
[2023-03-25 13:42] LABS: Myeloperoxidase Antibody <1.0 AI; Proteinase 3 PR3 Antibodies <1.0 AI
[2023-03-25 19:29] LABS: TS Negative Control Passed; TS Panel A 0; TS Panel B 0; TS Positive Control Passed; TSpotTB Negative (Negative)
[2023-03-27 20:02] LABS: VITAMIN D (1,25 OH) D3 37 pg/mL; Vit D (1,25-Dihydroxy) Total 37 pg/mL (18-72); Vitamin D (1,25 OH) D2 <8 pg/mL
[2023-03-28 22:13] LABS: Angiotensin Converting Enzyme 61.8 U/L (9-67)
[2023-03-29 11:18] LABS: Anti Nuclear Antibody Screen NEGATIVE (NEGATIVE)
[2023-03-30 14:38] LABS: TPMT Activity 14
[2023-03-31 06:23] LABS: Lysozyme, Serum 13.3 mcg/mL (5.0-11.0)
[2023-03-31 16:24] LABS: Vitamin D 25-OH, D2 <4 ng/mL; Vitamin D 25-OH, D3 11 ng/mL; Vitamin D 25-OH, Total 11 ng/mL (30-100)
== END 2023-03-23 11:07 | disposition home or self-care (01) ==
LOC: HO.LAB 11:06
PROVIDERS: PCP Internal Medicine; Visit Provider Student in an Organized Health Care Education/Training Program
DX: D86.9 Sarcoidosis, unspecified (principal); I77.6 Arteritis, unspecified; Z79.624 Long term (current) use of inhibitors of nucleotide synthesis; Z11.7 Encounter for testing for latent tuberculosis infection; Z11.59 Encounter for screening for other viral diseases; Z72.89 Other problems related to lifestyle
CPT/HCPCS: 36415; 80053; 82164; 82306; 82550; 82652; 82784; 84433; 85025; 85549; 85652; 86021; 86038; 86140; 86334; 86481; 86704; 86706; 86709; 86803; 87340

== ENCOUNTER 2023-04-25 10:07 | Outpatient (AMB) | payer BC, MEDICARE, SELFPAY ==
[2023-04-25 10:10] VITALS: BP 154/80; PULSE 87; O2SAT 99
--- NOTE | 2023-04-25 10:10 | MHC.OFFVIS ---
Intake Vital Signs 04/25/23 10:10 Height 5 ft 8 in BP 154/80 H Blood Pressure Location Lt brachial Position Sitting Pulse 87 Pulse Oximetry (%) 99 Oxygen Delivery Method Room Air Intake Visit Reasons: Sarcoidosis Intake Note: Patient last seen 11/12/22 presents today for follow up and test results. Outstanding orders for xrays. [employer] Rolls Required: No Accompanied by: Spouse Allergies dulaglutide [Trulicity] Allergy (Severe, Verified 04/25/23 10:19) Pancreatitis levofloxacin [Levaquin] Allergy (Severe, Verified 04/25/23 10:19) Rash PCN Allergy (Severe, Uncoded 04/25/23 10:19) Anaphylaxis Sulfa Drugs Allergy (Severe, Uncoded 04/25/23 10:19) Rash Medication List - Last Reconciled 04/25/23 by Kem Silva MD albuterol sulfate 90 mcg/actuation 2 puffs inhalation Q6H PRN albuterol sulfate 2.5 mg (3 mL) inhalation Q6H PRN 30 days aspirin 81 mg PO DAILY benzonatate 100 mg PO BID PRN 30 days budesonide-formoterol 160-4.5 mcg/actuation (Symbicort) 2 puffs inhalation BID 30 days folic acid 1 mg PO DAILY insulin lispro protamin-lispro 100 unit/mL (75-25) (Humalog Mix 75-25 KwikPen) subcut methotrexate sodium 10 mg (4 x 2.5 mg) PO QWEEK methylprednisolone 4 mg PO DAILY PRN 30 days nebulizers As directed oxycodone myristate ER (Xtampza ER) 13.5 mg PO BID HPI HPI Comments History of Present Illness Details 53-year-old female with sarcoidosis returns for follow-up. She is on methotrexate 10 mg weekly and Medrol 4 mg daily. Has been on this stable dose for more than 6 months now. She states that she had a couple of strep throat infection that she believes she caught from her grandchildren. Treated with oral antibiotics. Last infection was about 1 month ago. Patient is depressed that she can no longer walk due to her Charcot's foot. She continues to have tingling and numbness of her left hand. She states that she broke 1 of her teeth and will be going to her dentist and potentially get a root canal soon. Initial history: This is a 52-year-old female with past medical history of sarcoidosis who presents for follow-up. Per patient, Back in 2014 patient was found to have a mass in her upper chest, a biopsy was performed which was inconclusive, postoperatively patient was found to have multiple necrotic lymph nodes in her abdomen and pelvis, she went for an exploratory laparotomy and multiple lymph nodes were removed. At that time she was diagnosed with sarcoidosis. She was on Medrol initially then methotrexate was added afterwards. Per patient she had multiple large lung nodules. She was taking Medrol 4 mg daily and methotrexate 4 tabs once weekly for years until 2020 when her Medrol and methotrexate were discontinued. A few months ago she started having a flare-up of her sarcoidosis. She was restarted on Medrol 4 mg daily and methotrexate 4 tabs once weekly. She states that she also gets prednisone tapers as needed for flare-ups. Back in August she was diagnosed with strep throat, she took antibiotics, she had another strep infection a few weeks ago. Patient stated that she had a right ankle fracture a few years ago and postop she developed Charcot's joint right foot, she can hardly walk which is why she is in a wheelchair. She also stated that she had 2 strokes 3 years ago. Mentions that she had studies for peripheral vascular disease for both lower extremities and was told that she had good circulation She states that back in September she was starting to have more joint pain which was improved with methotrexate and Medrol, states that prednisone however causes whole body swelling. States that her aunt has MS. [facility] Medical History Asthma Bronchitis Dysphagia Sarcoidosis Pulmonary nodules Family History Daughter No problems noted. Maternal Aunt Multiple sclerosis Social History Patient Tobacco Use Status: Former Tobacco user Tobacco use type: Cigarette Years Smoked: 10 years Review of Systems Const Reports fatigue and Reports weakness Musc Reports numbness, Reports radiating pain into limb and Reports tingling Neuro Reports numbness, Reports tingling and Reports weakness Psych Reports anxiety and Reports depression Endo Reports fatigue Physical Exam Vital Signs: Last Vital Signs Pulse 87 04/25/23 10:10 BP 154/80 H 04/25/23 10:10 Pulse Ox 99 04/25/23 10:10 Oxygen Delivery Method Room Air 04/25/23 10:10 Const General: cooperative Nutritional Appearance: obese Orientation/consciousness: patient oriented x3 Limitations: wheelchair HEENT Head: Yes normocephalic and Yes atraumatic Mouth: moist mucous membranes Resp Effort & Inspection: normal respiratory effort and able to speak in complete sentences Cardio Rate: regular rate GI Palpation (GI): Soft to palpation and nontender Skin Other: Purplish discoloration of her legs Cool to touch Neuro General: patient oriented x3 Extrem Other: No active synovitis today Positive Tinel sign on the left with electric shock sensation going to the left thumb and left ring finger (? Cubital tunnel) Negative Spurling's test Normal range of motion of both hands, elbows, shoulders without pain Normal nailfold capillaroscopy Assessment & Plan Assessment & Plan (1) Sarcoidosis: Code(s): D86.9 - Sarcoidosis, unspecified Plan: This is a 53-year-old female with past medical history of sarcoidosis diagnosed in 2014, according to patient causing lung nodules, lung disease, chest, abdomen and pelvis lymphadenopathy, Treated with Medrol and methotrexate, Medrol and methotrexate were discontinued in 2020. A few months ago patient started having a flare-up of her disease with redevelopment of hilar adenopathy and patchy opacities. She was restarted on Medrol 4 mg daily and methotrexate 10 mg weekly, by Dr. Mackenzie with significant improvement. KARTIK levels normalized. 2D echo was unremarkable. Patient was evaluated by chief financial officer recently and received laser treatments for diabetic retinopathy. She was told there were no signs of active sarcoidosis Continue meds as prescribed by Dr. Mackenzie for now. Perhaps down the road we might consider lowering Medrol dose, can potentially increase the methotrexate dose if tapering Medrol proves to be challenging. 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 However since patient will be on Medrol regularly, she will need bone prophylaxis. Discussed risks and benefits of alendronate. Patient agreed to proceed. Start alendronate 70 mg weekly. Advised patient to started soon as she is done with her dental procedure (3) Numbness of left hand: Code(s): R20.0 - Anesthesia of skin Plan: EMG/NCV showed left carpal tunnel syndrome and cubital tunnel syndrome. Patient has an appointment with hand surgeon tomorrow Plan I spent 46 minutes reviewing patient's chart, evaluating patient, ordering diagnostic workup, counseling patient and documenting in the chart Orders: Orders Complete Blood Count Auto Diff 3 Months D86.9 - Sarcoidosis, unspecified Erythrocyte Sedimentation Rate 3 Months D86.9 - Sarcoidosis, unspecified Angiotensin Converting Enzyme 3 Months D86.9 - Sarcoidosis, unspecified Comprehensive Met. Panel 3 Months D86.9 - Sarcoidosis, unspecified C Reactive Protein 3 Months D86.9 - Sarcoidosis, unspecified Medications: New alendronate Take 1 tab once weekly, 1st thing in the morning, on an empty stomach, with a large glass of water (at least 6 oz) and stay upright for 30 minutes 70 mg PO QWEEK 12 tabs 1RF Coding Level of Care Code Est Pt Level 5 (32038) Diagnoses Sarcoidosis D86.9 USP systemic steroid user Z79.52 Numbness of left hand R20.0
== END 2023-04-25 10:48 | disposition home or self-care (01) ==
PROVIDERS: PCP Internal Medicine; Visit Provider Student in an Organized Health Care Education/Training Program
DX: D86.9 Sarcoidosis, unspecified (principal); Z79.52 Long term (current) use of systemic steroids; R20.0 Anesthesia of skin
CPT/HCPCS: 99215

== ENCOUNTER → 2023-04-25 10:07 | Outpatient (BNVA) | payer BC, MEDICARE, SELFPAY | PROVIDERS: PCP Internal Medicine; Visit Provider Student in an Organized Health Care Education/Training Program ==

== ENCOUNTER 2023-04-26 10:37 | Outpatient (AMB) | payer BC, MEDICARE, SELFPAY ==
[2023-04-26 10:54] VITALS: BMI 29.6
--- NOTE | 2023-04-26 10:54 | MHC.OFFVIS ---
Intake Vital Signs 04/26/23 10:54 Height 5 ft 8 in Weight 195 lb BMI 29.6 Intake Visit Reasons: N/P Carpal tunnel syndrome, left Intake Note: Nikky 53 yr old female who is right hand dominant presents today with her with her Carlos, for her left hand numbness and tingling for the last 4 years. She explains she had a stroke 4 years ago and the CTS started shortly after. Currently her CTS is worse at night time and is constantly waking up at night. EMG done. Denies wearing braces or injections. Allergies azithromycin [From Zithromax] Allergy (Severe, Verified 04/26/23 10:55) swelling eyes dulaglutide [Trulicity] Allergy (Severe, Verified 04/26/23 10:55) Pancreatitis levofloxacin [Levaquin] Allergy (Severe, Verified 04/26/23 10:55) Rash PCN Allergy (Severe, Uncoded 04/26/23 10:55) Anaphylaxis Sulfa Drugs Allergy (Severe, Uncoded 04/26/23 10:55) Rash HPI N/P Carpal tunnel syndrome, left HPI Details Nikky is a 53 year old right hand dominant woman, here with her Carlos, for a NCS review of her left hand numbness. She has right Charcot's foot and presents today in a wheelchair. She complains of numbness in all fingers of her left hand. Symptoms constant, worse at night. She says this has been present for ~4 years now. No complaints of numbness for the right hand. She has a hx of 2 strokes in ~2020, and a hx of sarcoidosis. She follows with Dr. Silva for this and is on Methotrexate & Medrol. Unfortunately, both her daughter and her mother have recently . [facility], [facility] Medical History (Updated 04/26/23 @ 11:20 by Meir Dumont) Hx of stroke associated with blood clotting tendency delivery delivered Asthma Bronchitis Dysphagia Sarcoidosis Pulmonary nodules Surgical History (Updated 04/26/23 @ 11:00 by FIGUEROA Yung) Hx of thumb surgery Hx of knee surgery Hx of appendectomy History of back surgery Family History Daughter No problems noted. 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 Review of Systems Const All systems reviewed & are unremarkable except as noted in HPI and below Physical Exam Vital Signs: BMI result Body Mass Index 29.6 Const General: cooperative, healthy appearing and no acute distress Orientation/consciousness: patient oriented x3 HEENT Head: Yes normocephalic and Yes atraumatic Eyes EOM: EOMs intact bilaterally Resp Effort & Inspection: normal respiratory effort and able to speak in complete sentences Cardio Jugular venous distension: no JVD Skin General skin exam: turgor normal Rashes: no rashes Neuro General: patient oriented x3 Extrem Other: Evaluation of Left Upper Extremity: The patient is alert, oriented, and in no acute distress She has in a wheelchair today and accompanied by her . She is somewhat tearful when talking about the recent of her daughter and her mother Neuro: Dense numbness to the tips of all digits No thenar or intrinsic wasting Good APB muscle belly firing and good finger cross Vascular: Cap refill brisk ROM: She can make a fist and extend all her digits Skin: No lacerations or abrasions. General: No Ecchymosis. No Erythema or evidence of infection. Nerve Conduction study: Left side only IMPRESSION: 1. This is an abnormal study. 2. There is electrodiagnostic evidence for left moderate-severe median neuropathy at the wrist, consistent with carpal tunnel syndrome. 3. There is electrodiagnostic evidence for left ulnar neuropathy at the elbow. 4. There is no electrodiagnostic evidence for brachial plexopathy, or cervical radiculopathy. 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 Left carpal tunnel syndrome, moderate-severe With dense numbness No wasting 2. Left cubital tunnel syndrome With dense numbness No wasting I educated her and her about these conditions I discussed operative and non-operative treatment options The patient would like to proceed with surgery The risks and benefits of operative treatment were discussed with the patient and the patient wishes to proceed with surgery. These risks include, but are not limited to risk of damage to blood vessels, nerves, tendons, infection, recurrence, incomplete relief of preoperative symptoms, persistent pain, possible need for further surgery and the risks associated with regional blocks and anesthesia. The plan is to take the patient to the operating room sometime in the next few weeks for the following procedures: 1. Left cubital tunnel release vs transposition, under general 2. Left carpal tunnel release, under general All of the preoperative paperwork including the consent was reviewed today. All the patient's questions were answered. The patient understands that they will be contacted by our vascular surgery physician soon to schedule this procedure She denies blood thinners, heart, kidney issues She has asthma, pulmonary nodules, and Sarcoidosis. She follows with Dr. Silva for this and takes Methotrexate & Medrol She has a hx of multiple strokes, but denies any blood thinners She is a Diabetic, she says her most recent HgA1c was >10.0% but this was done in 06/2022. She has right Charcot's foot, is in a wheelchair, and has difficulty remaining active to help manage her Diabetes They will need an updated HgA1c that is <8.0% in order to proceed with surgery, and they expressed understanding Scribed for Valentina Stout MD by Meir Dumont, medical center representative, on 04/26/23 at 11:20 AM, EST. Coding Level of Care Code New Pt Level 4 (85922) Diagnoses Left carpal tunnel syndrome G56.02 Cubital tunnel syndrome on left G56.22 assisted systemic steroid user Z79.52 Sarcoidosis D86.9 Diabetes mellitus E11.9
== END 2023-04-26 11:29 | disposition home or self-care (01) ==
PROVIDERS: PCP Internal Medicine; Visit Provider Orthopaedic Surgery
DX: G56.02 Carpal tunnel syndrome, left upper limb (principal); G56.22 Lesion of ulnar nerve, left upper limb; Z79.52 Long term (current) use of systemic steroids; D86.9 Sarcoidosis, unspecified; E11.9 Type 2 diabetes mellitus without complications
CPT/HCPCS: 99204

== ENCOUNTER → 2023-04-26 10:37 | Outpatient (BNVA) | payer BC, MEDICARE, SELFPAY | PROVIDERS: PCP Internal Medicine; Visit Provider Orthopaedic Surgery ==

== ENCOUNTER 2024-11-06 14:58 | Outpatient (AMB) | payer MEDICARE, BC, SELFPAY ==
--- NOTE | 2024-11-06 15:26 | A.OFFVIS_ITS ---
Intake Visit Reasons: ENP: Right sided numbness Allergies azithromycin (From Zithromax) Allergy (Severe, Verified 04/26/23 10:55) swelling eyes dulaglutide (Trulicity) Allergy (Severe, Verified 04/26/23 10:55) Pancreatitis levofloxacin (Levaquin) Allergy (Severe, Verified 04/26/23 10:55) Rash PCN Allergy (Severe, Uncoded 04/26/23 10:55) Anaphylaxis Sulfa Drugs Allergy (Severe, Uncoded 04/26/23 10:55) Rash HPI Comments Details: 54 yo RH woman who carried diagnosis of sarcoidosis, type II DM, anxiety, dysautonomia, a stroke in the back of head for which she was seeing a neurologist at [facility] , was here for right sided numbness. It happened in July of 2024 and lasted for couple of days but her right side was still not normal. She did not bring any records or imaging for review. She is presenting with right-sided numbness and tingling. These symptoms commenced in July, with prominent tingling spanning from the right side of her head down the right leg, including the neck and hands. While the tingling was intense for an initial period, residual numbness persists, particularly affecting her face. This follows a history of a confirmed stroke occurring two years earlier, characterized by dizziness and vomiting, which was investigated v ia MRI at [facility]. The recent episode led to brain scan in July at [place]. However, findings did not align with traditional stroke presentations managed by the neurologist. Consequently, the right-sided weakness, impacting her limb strength and movement, especially on the right arm and leg, remains. 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 In her medical background, the patient has a Type 2 Diabetes Mellitus diagnosis with an HbA1c of 8.5%. Sarcoidosis is among her longstanding conditions, monitored via lung imaging. Additionally, she has undergone multiple back surgeries, resulting in screws and fusion procedures. [facility] Medical History (Updated 11/06/24 @ 15:36 by Michael Hagan MD) Hx of stroke associated with blood clotting tendency delivery delivered Asthma Bronchitis Dysphagia Sarcoidosis Pulmonary nodules Surgical History (Updated 04/26/23 @ 11:00 by Leni Priest [facility]) Hx of thumb surgery Hx of knee surgery Hx of appendectomy History of back surgery Family History Daughter No problems noted. 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 - Ophthalmologic: Reports legal blindness, involved under ophthalmic care. - Endocrinologic: Reports Type 2 Diabetes Mellitus management. - Pulmonary: Reports history of sarcoidosis. - Genitourinary: Reports history of bladder infections. Physical Exam Neuro Other: Mental Status: Alert and oriented to person, place, and time. Normal attention. Normal spontaneous speech, fluency, and comprehension. No obvious issues with mood and memory. Affect is appropriate. Cranial Nerves: CN II: Limited visual equity especially from right eye. CN V: Facial sensation is normal. CN VII: Facial movements symmetrical. CN VIII: Hearing intact to bedside conversation is normal. CN IX, X: Palate elevates symmetrically. CN XI: Shoulder shrug and head turn symmetrical. CN XII: Tongue midline without atrophy or fasciculations. Motor: Deep tendon reflexes are absent. She is in a wheelchair. Extrapyramidal: Full facial expressions and blinking. No rigidity. Movements are appropriate with no tremor or abnormality. Speech: Normal; no dysarthria or tremor. Assessment & Plan Assessment & Plan (1) Hemiparesis: Code(s): G81.90 - Hemiplegia, unspecified affecting unspecified side Category: Medical Qualifiers: Cerebrovascular disease type: cerebral infarction Hemiparesis etiology: late effect of cerebrovascular disease Hemiparesis laterality: right dominant side Qualified Code(s): I69.351 - Hemiplegia and hemiparesis following cerebral infarction affecting right dominant side (2) Sarcoidosis: Code(s): D86.9 - Sarcoidosis, unspecified Category: Medical Plan 54 years old woman with previous diagnosis of sarcoidosis, type 2 diabetes, probably diabetic autonomic neuropathy, probably diabetic and ophthalmological issues resulting in legal blindness, might have a stroke for which she was following [facility] neurology was sent here for new onset of right-sided numbness. This happened in July but she still had some remnant of it. Her examination revealed signs of chronic severe peripheral neuropathy. I have requested a brain MRI and few laboratories including sed rate, as previously it was quite high up to 85, to rule out any possibility of sarcoid affecting her brain. She was also advised to bring her previous imaging for review. Orders: Orders Erythrocyte Sedimentation Rate 11/06/24 I69.351 - Hemiplegia and hemiparesis following cerebral infarction affecting right dominant side MR head/brain wo/w con 11/06/24 D86.9 - Sarcoidosis, unspecified, I69.351 - Hemiplegia and hemiparesis following cerebral infarction affecting right dominant side Basic Metabolic Panel 11/06/24 I69.351 - Hemiplegia and hemiparesis following cerebral infarction affecting right dominant side Coding Level of Care Code New Pt Level 4 (62179) Diagnoses Hemiparesis of right dominant side as late effect of cerebral infarction I69.351 Cerebrovascular disease type: cerebral infarction Hemiparesis etiology: late effect of cerebrovascular disease Hemiparesis laterality: right dominant side Sarcoidosis D86.9
--- OUTSIDE RECORDS SUMMARY | 2024-11-06 16:19 | XMS_ITS ---
Author Name [facility] Organization Unknown Care Team Organization Name Specialty Phone Email Start Date End Da te [facility] 12/15/2021 09/26/19 24
--- OUTSIDE RECORDS SUMMARY | 2024-11-06 16:19 | XMS_ITS | Clinical Summary ---
Author Organization [address] [facility] Address [address] [place] [address] Phone Care Team Providers Care Microbiology Technologist Name Role Phone Gina Hahn MD Primary Care Provider [phone] Allergies Active Allergy Reactions Criticality Noted Date Comments Azithromycin Swelling 08/26/2012 Bleach (Sodium Hypochlorite) 024 Bupropion 02/06/2024 Hydromorphone 02/06/2024 Levofloxacin 02/06/2024 Morphine 02/06/2024 Penicillins Anaphylaxis High 10/29/2016 Sulfadiazine 02/06/2024 Dulaglutide 02/06/2024 Medications meclizine (ANTIVERT) 25 mg tablet Take 1 tablet (25 mg total) by mouth 3 (three) times a day if needed for dizziness. 90 tablet 1 4 Active clopidogreL (PLAVIX) 75 mg tablet Take 1 tablet (75 mg total) by mouth 1 (one) time each day. 30 each 4 Active alcohol swabs (Alcohol Wipes) pads, medicated USE DIRECTED. 8 Active blood-glucose meter kit Use to test blood sugars three times a day 3 Active diclofenac (VOLTAREN) 1 % topical gel Apply 1 g topically 3 times daily. 3 Active FREESTYLE LANCETS MISC Use one lancet four times daily 3 Active hydrocortisone 2.5 % cream Apply locally twice a day 3 Active ketoconazole (NIZORAL) 2 % cream Apply locally twice a day 0 Active magnesium 200 mg tablet Take 1 capsule every 12 hours by oral route. Active zinc sulfate (ZINCATE) 220 mg (50 mg elemental zinc) capsule Take 1 Capsule by mouth daily. 3 Active oxyCODONE myristate (Xtampza ER) 13.5 mg capsule,sprinkle ,ER 12hr tmprr 0 Active miscellaneous medical supply (Blood Pressure Cuff) miscIndications: Elevated blood pressure reading without diagnosis of hypertension 1 each 1 (one) time each day. 1 each 5 Active simethicone (MYLICON) 125 mg chewable tablet Chew 1 tablet (125 mg total) every 6 (six) hours if needed for flatulence. 30 tablet 3 5 Active insulin aspart protamine-insuli n aspart (NovoLOG Mix 70-30FlexPen U-100) 100 unit/mL (70-30) injection pen Inject 65 Units under the skin 1 (one) time each day. Pens should be rolled between palms of hands ten times and inverted 180 degrees ten times prior to each use. Administer 5 to 15 minutes before a meal. 15 mL 11 5 03/29/19 26 Active aspirin 81 mg EC tablet Take 1 tablet (81 mg total) by mouth 1 (one) time each day. 90 tablet 3 5 03/30/19 26 Active insulin regular (HumuLIN R KwikPen U-500) 500 unit/mL (3 mL) CONCENTRATED injection pen Inject 65 Units under the skin 2 (two) times a day before meals. 6 mL 5 5 Active blood sugar diagnostic (FreeStyle Lite Strips) test stripIndications :Type 2 diabetes mellitus with other diabetic kidney complication (CMS/HCC V24, [facility]/HCC V28) 1 each by Other route 2 (two) times a day. 100 strip 5 5 Active folic acid (FOLVITE) 1 mg tablet Take 1 tablet (1,000 mcg total) by mouth 1 (one) time each day. 90 tablet 3 5 Active ezetimibe (ZETIA) 10 mg tablet Take 1 tablet (10 mg total) by mouth 1 (one) time each day. 90 each 5 5 Active hydrOXYzine HCL (ATARAX) 10 mg tablet Take 1 tablet (10 mg total) by mouth 2 (two) times a day if needed for anxiety. 30 tablet 5 Active ergocalciferol (VITAMIN D-2) 1,250 mcg (50,000 unit) capsule Take 1 capsule (50,000 Units total) by mouth 1 (one) time per week. 12 capsule 3 5 Active nitrofurantoin, macrocrystal-mon ohydrate, (MACROBID) 100 mg capsule Take 1 capsule (100 mg total) by mouth 2 (two) times a day for 7 days. 14 each 5 10/14/19 25 Active Problems Problem Noted Date Diagnosed Date Wheelchair dependent 05/17/2024 Lumbar radiculopathy 05/17/2024 Herniated lumbar intervertebral disc 05/17/2024 Abnormal LFTs 02/07/2024 Anxiety and depression 02/07/2024 Constipation 02/07/2024 CVA (cerebral vascular accident) ([facility] V24, [place]/[facility] V28) 02/07/2024 Vertigo 02/06/2024 Type 2 diabetes mellitus, wi th long-term current use of insulin ([facility] V24, [facility] V28) 02/06/2024 Cerebrovascular accident (CV A) due to thrombosis of right posterior cerebral artery ([facility] V24, [facility] V28) 02/06/2024 Mixed hyperlipidemia 02/06/2024 HTN (hypertension), benign 02/06/2024 Sarcoidosis 02/06/2024 Nasal polyp 02/05/2021 Nose pain 02/05/2021 Nerve injury 01/15/2021 Overview (05/17/2024): left foot Diabetic polyneuropathy asso ciated with type 2 diabetes mellitus ([facility] V24, [facility] V28) 04/10/2019 Microalbuminuria 01/12/2018 Bone fracture 10/18/2017 Pulmonary nodules 10/18/2017 Sarcoid 10/18/2017 Ankle fracture, right 10/14/2017 Elevated TSH 10/14/2017 Vitamin D deficiency 10/14/2017 Hypertension 09/15/2017 Type 2 diabetes mellitus wit h renal manifestations ([facility] V24, [facility] V28) 09/05/2017 Blepharitis 08/18/2017 Phlebitis 08/18/2017 Anemia 06/27/2017 Syncope 06/27/2017 Pedal edema 05/27/2017 Facial numbness 04/06/2017 Insomnia 11/11/2016 Vitamin B12 deficiency 09/15/2015 Lumbar spinal stenosis 07/30/2014 Chronic lower back pain 06/03/2014 Hidradenitis suppurativa 06/03/2014 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 Encounters Date Type Department Care Team Description 10/23/2024 Telephone Internal Medicine [address] [phone] Gina Hahn MD 10/05/2024 Telephone Internal Medicine [address] [phone] Gina Hahn MD 09/25/2024 [facility] [address] [phone] Gina Hahn MD 09/20/2024 10:30 AM EDT Consult Internal Medicine [address] [phone] Gina Hahn MD Pre-op examination (Primary Dx); Type 2 diabetes mellitus with other circulatory complication, with long-term current use of insulin ([facility] V24, [facility] V28); HTN (hypertension), benign; Mixed hyperlipidemia; Vitamin D deficiency; Vertigo; Right sided numbness; Urinary tract infection without hematuria, site unspecified 08/27/2024 Telephone Internal Medicine [address] [phone] Gina Hahn MD from Last 3 Months Surgical History Surgery Date Site/Laterality Comments CAROTID ENDARTERECTOMY 09/2018 Left PROCEDURE: HISTORICAL CAROTID ENDART; COMMENT: [facility]. [facility] Medical History Medical History Date Comments Pulmonary nodules 10/18/2017 DX:Pulmonary n odules Sarcoid 10/18/2017 DX:Sarcoid Bone fracture 10/18/2017 DX:Bone fracture Anemia 06/27/2017 DX:Anemia Ankle fracture, right 10/14/2017 DX:Ankle f racture, right Blepharitis 08/18/2017 DX:Blepharitis Chronic lower back pain 06/03/2014 DX:Chron ic lower back pain History of DVT of lower extremity 01/09/2015 DX:History of DVT of lower extremity Hypertension 09/15/2017 DX:Hypertension Insomnia 11/11/2016 DX:Insomnia Pedal edema 05/27/2017 DX:Pedal edema Vitamin B12 deficiency 09/15/2015 DX:Vitami n B12 deficiency Vitamin D deficiency 10/14/2017 DX:Vitamin D deficiency History of cellulitis 10/14/2017 DX:History of cellulitis Elevated TSH 10/14/2017 DX:Elevated TSH Type 2 diabetes mellitus wit h renal manifestations ([facility] V24, [facility] V28) 09/05/2017 DX:Type 2 diabetes mellitus with renal manifestations ([facility]) Facial numbness 04/06/2017 DX:Facial numbne ss Hidradenitis suppurativa 06/03/2014 DX:Hidr adenitis suppurativa Lumbar spinal stenosis 07/30/2014 DX:Lumbar spinal stenosis 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 DX:Mese nteric lymphadenitis Phlebitis 08/18/2017 DX:Phlebitis History of shingles 11/16/2016 DX:History o f shingles Syncope 06/27/2017 DX:Syncope Microalbuminuria 01/12/2018 DX:Microalbumin uria Anxiety and depression DX:Anxiet y and depression CVA (cerebral vascular accid ent) ([facility] V24, [facility] V28) DX:CVA (cerebral vascular a ccident) ([facility]) Sarcoidosis DX:Sarcoidosis Constipation DX:Constipation Abnormal LFTs DX:Abnormal LFTs Esophageal reflux DX:Esophageal reflux Irritable bowel syndrome DX:Irri table bowel syndrome Colitis DX:Colitis Diverticulosis DX:Diverticulosi s Mixed hyperlipidemia 02/06/2024 Family History Medical History Relation Name Comments Bipolar disorder Daughter Bipolar disorder Father Other: on spectrum Son Relation Name Status Comments Daughter Alive Father Son Alive Social History Tobacco Use Types Packs/Day Years Used Date Smoking Tobacco: Former Smokeless Tobacco: Former Tobacco Cessation:Counseling Given: Not Answered Alcohol Use Standard Drinks/Week Comments No 0 (1 standard drink = 0.6 oz pur e alcohol) Housing Instability Answer Date Recorde d Are you worried that in the next 2 months you may not have stable housing? No 03/30/2024 Food Access & Nutrition Answer Date Rec orded Do you have access to a vari ety of food including fruits and vegetables? Yes 03/30/2024 Access to Healthcare Answer Date Record ed Within the last 3 months, ho w many times did you visit the emergency department for your medical care? 1 03/30/2024 Health Literacy Answer Date Recorded How often do you need to hav e someone help you when you read instructions, pamphlets, or other written material from your doctor or pharmacy? Patient declined 03/30/2024 Caregiver: How often do you need to have someone help you when you read instructions, pamphlets, or other written material from your doctor or pharmacy? Not on file 025 Financial Risk Answer Date Recorded How hard is it for you to pa y for the very basics like food, housing, medical care, and air conditioning / heating? Not very hard 03/30/2024 Transportation Answer Date Recorded Has the lack of transportati on kept you from meetings, work, or from getting things needed for daily living? Yes Has the lack of transportati on kept you from medical appointments or from getting medications? Yes 03/30/2024 Social Isolation Answer Date Recorded How often do you feel lonely or isolated from those around you? Patient declined 03/30/2024 Food Risk Answer Date Recorded Within the past 12 months we worried whether our food would run out before we got money to buy more. Never true 03/30/2024 Within the past 12 months th e food we bought just didn't last and we didn't have money to get more. Never true 03/30/2024 Dependent Care Answer Date Recorded Do you need help finding or paying for care for your loved ones. For example, child nutrition director or elderly care for an older adult? Patient declined 03/30/2024 Education Answer Date Recorded Do you think completing more education or training, like finishing a GED, going to college, or learning a trade, would be helpful for you? Patient declined 03/30/2024 Employment and Income Answer Date Recor ded During the last four weeks, have you been actively looking for work? Patient declined 03/30/2024 Living Situation Answer Date Recorded What is your living situation? Unrecognized valu e 03/30/2024 Comments Unknown Sex and Gender Information Value Date Recorded Sex Assigned at Not on file Legal Sex Female 7:29 AM EST Gender Identity Not on file Sexual Orientation Not on file Obstetrics History Last Filed Vital Signs Vital Sign Reading Time Taken Comments Blood Pressure 128/82 09/20/2024 10:52 AM EDT Pulse 71 09/20/2024 10:52 AM EDT Temperature 36.4 C (97.5 F) 09/20/2024 10:52 AM EDT Respiratory Rate 18 09/20/2024 10:52 AM EDT Oxygen Saturation 97% 09/20/2024 10:52 AM EDT Inhaled Oxygen Concentration - - Weight 89.8 kg (198 lb) 09/20/2024 10:52 AM EDT Height 172.7 cm (5' 8 ) 09/20/2024 10:52 AM EDT Body Mass Index 30.11 09/20/2024 10:52 AM EDT Plan of Treatment Health Maintenance Due Date Last Done Comments Breast Cancer Screening 1970 Colorectal Cancer Screening: Colonoscopy 1970 Diabetes: Annual Foot Exam 1980 DTaP,Tdap,and Td Vaccines (1 - Tdap) 1989 Hepatitis B Vaccines (1 of 3 - 19+ 3-dose series) 1989 Pneumococcal Vaccine: 50+ Years (1 of 2 - PCV) 1989 Cervical Cancer Screening: P ap Smear 1991 Zoster Vaccines (1 of 2) 2020 HIV Screening 01/10/2022 Medicare Annual Wellness Visit 05/07/2023 05/06/2022 Diabetes: Annual Retina Eye Exam 02/26/2024 02/25/2023 COVID-19 Vaccine ( - 2023-2 5 season) 2024 Influenza Vaccine (#1) 2024 Diabetes: Blood Sugar Contro l Test (HGBA1C) 03/23/2025 09/20/2024, 10/07/2022 Social Influencers of Health Screening 03/30/2025 03/30/2024 Diabetes: Annual Urine Albumin-Creatinine Ratio (uACR) 09/20/2025 09/20/2024, 12/21/2004 Diabetes: Annual GFR (Glomerular Filtration Rate) 09/20/2025 09/20/2024, 05/10/2022 Hypertension/CHF/CAD Annual BMP Blood Test 09/20/2025 09/20/2024, 05/10/2022 Cholesterol Screening (Lipid Panel) 09/20/2029 09/20/2024, 05/10/2022 RSV Immunization Adult Patients (1 - 1-dose 75+ series) 2045 Hepatitis C Screening Completed 05/19/2020 Depression Screening Completed 03/30/2024 HIB Vaccines Aged Out No longer eligi ble based on patient's age to complete this topic HPV Vaccines Aged Out No longer eligi ble based on patient's age to complete this topic Hepatitis A Vaccines Aged Out No long er eligible based on patient's age to complete this topic IPV Vaccines Aged Out No longer eligi ble based on patient's age to complete this topic MMR Vaccines Aged Out No longer eligi ble based on patient's age to complete this topic Meningococcal ACWY Vaccine Aged Out N o longer eligible based on patient's age to complete this topic Meningococcal B Vaccine Aged Out No l onger eligible based on patient's age to complete this topic RSV Immunization Patients Under 20 months Aged Out No longer eligible b ased on patient's age to complete this topic Varicella Vaccines Aged Out No longer eligible based on patient's age to complete this topic Procedures Procedure Name Priority Date/Time Associated Diagnosis Comments MAGNESIUM Routine 09/20/2024 11:27 AM EDT Type 2 diabetes mellitus with other circulatory complication, with long-term current use of insulin ([facility] V24, [facility] V28) HTN (hypertension), benign Mixed hyperlipidemia Vitamin D deficiency Vertigo Right sided numbness MICROALBUMIN CREATININE URINE RATIO Routine 09/20/2024 11:27 AM EDT Type 2 diabetes mellitus with other circulatory complication, with long-term current use of insulin ([facility] V24, [facility] V28) HTN (hypertension), benign Mixed hyperlipidemia Vitamin D deficiency Vertigo VITAMIN D 25 HYDROXY Routine 09/20/2024 11:27 AM EDT Type 2 diabetes mellitus with other circulatory complication, with long-term current use of insulin ([facility] V24, [facility] V28) HTN (hypertension), benign Mixed hyperlipidemia Vitamin D deficiency Vertigo VITAMIN B12 Routine 09/20/2024 11:27 AM EDT Type 2 diabetes mellitus with other circulatory complication, with long-term current use of insulin ([facility] V24, [facility] V28) HTN (hypertension), benign Mixed hyperlipidemia Vitamin D deficiency Vertigo THYROID STIMULATING HORMONE Routine 09/20/2024 11:27 AM EDT Type 2 diabetes mellitus with other circulatory complication, with long-term current use of insulin ([facility] V24, [facility] V28) HTN (hypertension), benign Mixed hyperlipidemia Vitamin D deficiency Vertigo COMPLETE BLOOD COUNT Routine 09/20/2024 11:27 AM EDT Type 2 diabetes mellitus with other circulatory complication, with long-term current use of insulin ([facility] V24, [facility] V28) HTN (hypertension), benign Mixed hyperlipidemia Vitamin D deficiency Vertigo LIPID PANEL WITH REFLEX TO DIRECT LDL Routine 09/20/2024 11:27 AM EDT Type 2 diabetes mellitus with other circulatory complication, with long-term current use of insulin ([facility] V24, [facility] V28) HTN (hypertension), benign Mixed hyperlipidemia Vitamin D deficiency Vertigo COMPREHENSIVE METABOLIC PANEL Routine 09/20/2024 11:27 AM EDT Type 2 diabetes mellitus with other circulatory complication, with long-term current use of insulin ([facility] V24, [facility] V28) HTN (hypertension), benign Mixed hyperlipidemia Vitamin D deficiency Vertigo HEMOGLOBIN A1C Routine 09/20/2024 11:27 AM EDT Type 2 diabetes mellitus with other circulatory complication, with long-term current use of insulin ([facility] V24, [facility] V28) HTN (hypertension), benign Mixed hyperlipidemia Vitamin D deficiency Vertigo CULTURE URINE Routine 09/20/2024 11:22 AM EDT Urinary tract infection without hematuria, site unspecified DIABETES EYE EXAM Routine 02/25/2023 HEPATITIS C SCREENING Routine 05/19/2020 from Last 3 Months or Most Recently Relevant to Health Maintenance Results * (ABNORMAL) Lipid panel with reflex to direct LDL (09/20/2024 11:27 AM EDT) Cholesterol 179 0 - 200 mg/dL LAB CHEMISTRY METHOD 09/20/2024 4:16 PM EDT [facility] Triglycerides 182(H) 0 - 150 mg/dL LAB CHEMISTRY METHOD 09/20/2024 4:16 PM EDT [facility] HDL 52 >=40 mg/dL LAB CHEMISTRY METHOD 09/20/2024 4:16 PM EDT [facility] LDL Calculated 91 0 - 100 mg/dL LAB CHEMISTRY METHOD 09/20/2024 4:16 PM EDT [facility] Comment:Estimated LDL Calcul ated using equation: Total cholesterol - HDL cholesterol - (Triglycerides/5) VLDL Cholesterol Xander 36.4 mg/dL LAB CHEMISTRY METHOD 09/20/2024 4:16 PM T [facility] Non HDL Chol. (LDL+VLDL) 127 <145 mg/dL LAB CHEMISTRY METHOD 09/20/2024 4:16 PM T [facility] Chol/HDL Ratio 3.4 0.0 - 4.4 LAB CHEMISTRY METHOD 09/20/2024 4:16 PM T [facility] Blood Venous blood specimen / Unknown Venipuncture / Unknown 09/20/2024 11:27 AM EDT 09/20/2024 11:27 AM EDT us Gina Hahn MD LAB BLOOD ORDERABLES Final Res ult [facility] [address] [place] [address], * (ABNORMAL) Microalbumin creatinine urine ratio (09/20/2024 11:27 AM EDT) Creatinine, Urine 218.0 mg/dL LAB CHEMISTRY METHOD 09/20/2024 4:26 PM EDT [facility] Microalb, Ur 3,400.0(H ) 0.0 - 29.0 mg/L LAB CHEMISTRY METHOD 09/20/2024 4:26 PM EDT [facility] Microalb/Crea t Ratio 1,560(H) <30 mg/g creat LAB CHEMISTRY METHOD 09/20/2024 4:26 PM EDT [facility] Urine Urine specimen obtained by clean catch procedure / Unknown Non-blood Collection / Unknown 09/20/2024 11:27 AM EDT 09/20/2024 11:27 AM EDT Gina Hahn MD LAB URINE ORDERABLES Final Res ult Performing Organization Address [facility]/ZIP Co de Phone Number [facility] [address] [place] [address], [place] [phone] * (ABNORMAL) Vitamin D 25 hydroxy (09/20/2024 11:27 AM EDT) Pathologist [facility] [place] Vit D, 25-Hydroxy 5.8(L) 30.0 - 80.0 ng/mL LAB CHEMISTRY METHOD 09/20/2024 5:48 PM EDT [facility] Blood Venous blood specimen / Unknown Venipuncture / Unknown 09/20/2024 11:27 AM EDT 09/20/2024 11:27 AM EDT us Gina Hahn MD LAB BLOOD ORDERABLES Final Res ult Performing Organization Address City/[facility]/ZIP Co de Phone Number [facility] [address] [place] [address], [place] [phone] * (ABNORMAL) Complete blood count (09/20/2024 11:27 AM EDT) WBC 11.6(H) 4.8 - 10.8 K/Health system LAB HEMETOLOGY METHOD 09/20/2024 2:33 PM EDT [facility] RBC 4.70 3.80 - 4.80 M/Health system LAB HEMETOLOGY METHOD 09/20/2024 2:33 PM EDT [facility] Hemoglobin 11.9 11.5 - 16.0 g/dL LAB HEMETOLOGY METHOD 09/20/2024 2:33 PM EDT [facility] Hematocrit 39.1 35.0 - 47.0 % LAB HEMETOLOGY METHOD 09/20/2024 2:33 PM EDT [facility] MCV 83.7 79.0 - 98.0 FL LAB HEMETOLOGY METHOD 09/20/2024 2:33 PM EDT [facility] MCH 25.5(L) 27.0 - 32.0 pcg LAB HEMETOLOGY METHOD 09/20[facility]24 [facility] MCHC 30.4(L) 32.0 - 37.0 g/dL LAB HEMETOLOGY METHOD 09/20/2024 2:33 PM EDT [facility] RDW 13.9 11.0 - 15.0 % LAB HEMETOLOGY METHOD 09/20/2024 2:33 PM EDT [facility] Platelets 303 130 - 400 K/mcL LAB HEMETOLOGY METHOD 09/20/2024 2:33 PM EDT [facility] MPV 11.5(H) 7.0 - 11.0 FL LAB HEMETOLOGY METHOD 09/20/2024 2:33 PM EDT [facility] NRBC 0.0 <1.0 % LAB HEMETOLOGY METHOD 09/20/2024 2:33 PM EDT [facility] NRBC Absolute 0.00 <0.10 K/mcL LAB HEMETOLOGY METHOD 09/20/2024 2:33 PM [facility] Blood Venous blood specimen / Unknown Venipuncture / Unknown 09/20/2024 11:27 AM EDT 09/20/2024 11:27 AM EDT Gina Hahn MD LAB BLOOD ORDERABLES Final Res ult Performing Organization Address City/[facility]/ZIP Co de Phone Number [facility] [address] [place] [address], * (ABNORMAL) Thyroid stimulating hormone (09/20/2024 11:27 AM EDT) Pathologist [facility] [place] TSH 5.34(H) 0.40 - 4.00 mcIU/mL LAB CHEMISTRY METHOD 09/20/2024 5:45 PM EDT [facility] Blood Venous blood specimen / Unknown Venipuncture / Unknown 09/20/2024 11:27 AM EDT 09/20/2024 11:27 AM EDT Gina Hahn MD LAB BLOOD ORDERABLES Final Res ult Performing Organization Address [facility]/ZIP Co de Phone Number [facility] [address] [place] [address], * Magnesium (09/20/2024 11:27 AM EDT) [facility] Magnesium 2.1 1.9 - 2.6 mg/dL LAB CHEMISTRY METHOD 09/20/2024 4:16 PM EDT [facility] Blood Venous blood specimen / Unknown Venipuncture / Unknown 09/20/2024 11:27 AM EDT 09/20/2024 11:27 AM EDT Gina Hahn MD LAB BLOOD ORDERABLES Final Res ult Performing Organization Address City/[facility]/ZIP Co de Phone Number [facility] [address] [place] [address], * (ABNORMAL) Hemoglobin A1c (09/20/2024 11:27 AM EDT) Pathologist [facility] [place] Hemoglobin A1C 8.5(H) <6.5 % LAB CHEMISTRY METHOD 09/20/2024 9:42 PM EDT [facility] Mean Bld Glu Estim. 197 mg/dL LAB CHEMISTRY METHOD 09/20/2024 9:42 PM EDT [facility] Blood Venous blood specimen / Unknown Venipuncture / Unknown 09/20/2024 11:27 AM EDT 09/20/2024 11:27 AM EDT Gina Hahn MD LAB BLOOD ORDERABLES Final Res ult Performing Organization Address City/[facility]/ZIP Co de Phone Number [facility] [address] [place] [address], [place] [phone] * Vitamin B12 (09/20/2024 11:27 AM EDT) Pathologist [facility] [place] Vitamin B-12 527 250 - 900 pcg/mL LAB CHEMISTRY METHOD 09/20/2024 4:38 PM EDT [facility] Blood Venous blood specimen / Unknown Venipuncture / Unknown 09/20/2024 11:27 AM EDT 09/20/2024 11:27 AM EDT Gina Hahn MD LAB BLOOD ORDERABLES Final Res ult Performing Organization Address [facility]/ZIP Co de Phone Number [facility] [address] [place] [address], [place] [phone] * (ABNORMAL) Comprehensive metabolic panel (09/20/2024 11:27 AM EDT) Pathologist [facility] [place] Sodium 132(L) 133 - 145 mmol/L LAB CHEMISTRY METHOD 09/20/2024 4:16 PM EDT [facility] Potassium 5.3 3.5 - 5.5 mmol/L LAB CHEMISTRY METHOD 09/20/2024 4:16 PM EDT [facility] Chloride 101 96 - 110 mmol/L LAB CHEMISTRY METHOD 09/20/2024 4:16 PM EDT [facility] CO2 24 21 - 32 mmol/L LAB CHEMISTRY METHOD 09/20/2024 4:16 PM [facility] [facility] Anion Gap 7 3 - 11 LAB CHEMISTRY METHOD 09/20/2024 4:16 PM [facility] Glucose 243(H) 70 - 100 mg/dL LAB CHEMISTRY METHOD 09/20/2024 4:16 PM [facility] BUN 35(H) 5 - 25 mg/dL LAB CHEMISTRY METHOD 09/20/2024 4:16 PM [facility] Creatinine 1.74(H) 0.50 - 1.10 mg/dL LAB CHEMISTRY METHOD 09/20/2024 4:16 PM [facility] eGFR 35(L) >=60 mL/min/1. 73m2 LAB CHEMISTRY METHOD 09/20/2024 4:16 PM [facility] Comment:Calculation based on the Chronic Kidney Disease Epidemiology Collaboration (CKD-EPI) equation refit without adjustment for race. BUN/Creatinine Ratio 20.1 LAB CHEMISTRY METHOD 09/20/2024 4:16 PM [facility] Calcium 9.2 8.5 - 10.5 mg/dL LAB CHEMISTRY METHOD 09/20/2024 4:16 PM [facility] AST (SGOT) 19 10 - 42 unit/L LAB CHEMISTRY METHOD 09/20/2024 4:16 PM [facility] ALT (SGPT) 19 10 - 60 unit/L LAB CHEMISTRY METHOD 09/20/2024 4:16 PM [facility] Alkaline Phosphatase 133(H) 42 - 121 unit/L LAB CHEMISTRY METHOD 09/20/2024 4:16 PM [facility] Total Protein 7.9 6.0 - 8.0 g/dL LAB CHEMISTRY METHOD 09/20/2024 4:16 PM [facility] Albumin 3.5 3.2 - 5.0 g/dL LAB CHEMISTRY METHOD 09/20/2024 4:16 PM EDT [facility] Total Bilirubin 0.5 0.0 - 1.4 mg/dL LAB CHEMISTRY METHOD 09/20/2024 4:16 PM EDT [facility] Blood Venous blood specimen / Unknown Venipuncture / Unknown 09/20/2024 11:27 AM EDT 09/20/2024 11:27 AM EDT us Gina Hahn MD LAB BLOOD ORDERABLES Final Res ult [facility] [address] [place] [address], [place] [phone] * (ABNORMAL) Culture urine (09/20/2024 11:22 AM EDT) Culture, Urine >=100,000 CFU/mL Klebsiella pneumoniae ssp pneumoniae(A) MICHAEL 09/22/2024 10:48 AM EDT [facility] Comment: This is an edited result. Previous organism was Gram negative bacilli on 09/21/2024 at 0845 EDT. Urine Urine specimen obtained by clean catch procedure / Unknown Non-blood Collection / Unknown 09/20/2024 11:22 AM EDT 09/20/2024 11:22 AM EDT Narrative Organism Antibiotic Method Susceptibility Klebsiella pneumoniae ssp pneumoniae Amoxicillin/Clavulanate MICHAEL <=2 ug/ml: Susceptible Klebsiella pneumoniae ssp pneumoniae Ampicillin/Sulbactam MICHAEL <=2 ug/ml: Susceptible Klebsiella pneumoniae ssp pneumoniae Piperacillin/Tazobactam MICHAEL <=4 ug/ml: Susceptible Klebsiella pneumoniae ssp pneumoniae Cefazolin (Urine) MICHAEL <=1 ug/ml: Susceptible Klebsiella pneumoniae ssp pneumoniae Cefoxitin MICHAEL <=4 ug/ml: Susceptible Klebsiella pneumoniae ssp pneumoniae Ceftazidime MICHAEL <=0.5 ug/ml: Susceptible Klebsiella pneumoniae ssp pneumoniae Ceftriaxone MICHAEL <=0.25 ug/ml: Susceptible Klebsiella pneumoniae ssp pneumoniae Cefepime MICHAEL <=0.12 ug/ml: Susceptible Klebsiella pneumoniae ssp pneumoniae Meropenem MICHAEL <=0.25 ug/ml: Susceptible Klebsiella pneumoniae ssp pneumoniae Amikacin MICHAEL <=1 ug/ml: Susceptible Klebsiella pneumoniae ssp pneumoniae Gentamicin MICHAEL <=1 ug/ml: Susceptible Klebsiella pneumoniae ssp pneumoniae Ciprofloxacin MICHAEL <=0.06 ug/ml: Susceptible Klebsiella pneumoniae ssp pneumoniae Levofloxacin MICHAEL <=0.12 ug/ml: Susceptible Klebsiella pneumoniae ssp pneumoniae Nitrofurantoin MICHAEL <=16 ug/ml: Susceptible Klebsiella pneumoniae ssp pneumoniae Trimethoprim/Sulfamethoxazo le MICHAEL <=20 ug/ml: Susceptible Gina Hahn MD LAB MICROBIOLOGY - GENERAL ORD ERABLES Final Result [facility] ([facility]) 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 Health Care Decision (hx) 05/22/2014 AD REGAN DIRECTIVE Health Care Decision (hx) 05/22/2014 AD REGAN DIRECTIVE Health Care Decision (hx) 05/22/2014 AD REGAN DIRECTIVE Health Care Decision (hx) 05/22/2014 AD REGAN DIRECTIVE Health Care Decision (hx) 05/22/2014 AD REGAN DIRECTIVE Health Care Decision (hx) 05/22/2014 AD REGAN DIRECTIVE Health Care Decision (hx) 05/22/2014 AD REGAN DIRECTIVE Health Care Decision (hx) 05/22/2014 AD REGAN DIRECTIVE Health Care Decision (hx) 05/22/2014 AD REGAN DIRECTIVE Health Care Decision (hx) 05/22/2014 AD REGAN DIRECTIVE Health Care Decision (hx) 05/22/2014 AD REGAN DIRECTIVE Health Care Decision (hx) 05/22/2014 AD REGAN DIRECTIVE Health Care Decision (hx) 05/22/2014 AD REGAN DIRECTIVE Health Care Decision (hx) 05/22/2014 AD REGAN DIRECTIVE Health Care Decision (hx) 05/21/2014 AD REGAN DIRECTIVE Health Care Decision (hx) 05/21/2014 AD REGAN DIRECTIVE Health Care Decision (hx) 05/21/2014 AD REGAN DIRECTIVE Health Care Decision (hx) 05/21/2014 AD REGAN DIRECTIVE Health Care Decision (hx) 05/21/2014 AD REGAN DIRECTIVE Health Care Decision (hx) 05/21/2014 AD REGAN DIRECTIVE Health Care Decision (hx) 05/21/2014 AD REGAN DIRECTIVE Health Care Decision (hx) 05/21/2014 AD REGAN DIRECTIVE Health Care Decision (hx) 05/21/2014 AD REGAN DIRECTIVE Health Care Decision (hx) 05/21/2014 AD ERGAN DIRECTIVE Health Care Decision (hx) 05/21/2014 AD REGAN DIRECTIVE Health Care Decision (hx) 05/21/2014 AD REGAN DIRECTIVE Health Care Decision (hx) 05/21/2014 AD REGAN DIRECTIVE Health Care Decision (hx) 05/21/2014 AD REGAN DIRECTIVE Care Teams Microbiology Technologist Relationship Specialty Start Date End Date Chaganti, Gina D, MD [address] [place] [id number] PCP - General Internal Medicine 08/25/16
--- OUTSIDE RECORDS SUMMARY | 2024-11-06 16:19 | XMS_ITS | Patient Health Record ---
Author Organization [facility] Address [address] [facility] [address] [place] [address] Care Team Providers Care Engineering And Development Director Name Role Phone Gina Hahn Primary Care Provider Unavailabl e Allergies Allergen (clinical drug ingredient) Drug/Non Drug Allergy documented on EMR Reaction Allergy Type Onset Date Status morphine Morphine Sulfate Unknown Drug Allergy Active dulaglutide Trulicity Unknown Drug Allergy Activ e Substance with penicillin structure and antibacterial mechanism of action (substance) Penicillins Unknown Drug Allergy Active Reason For Referral No Information Medications Medication SIG (Take, Route, Frequency, Duration) Notes Start Date End Date Status oxyCODONE ER 9 MG 1 capsule with food Orally every 12 hrs Active Benzonatate 100 MG 1 capsule as needed Orally Three times a day Active Methotrexate 2.5 MG 6 tabs Orally once a week Active Norvasc 10 MG 1 tablet Orally Once a day Active NovoLOG FlexPen 100 UNIT/ML as directed Subcutaneous Act eric prednisoLONE Active Methotrexate Active Turmeric Active Problems Problem Type SNOMED Code ICD Code Onset Dates Problem Status W/U Status Risk Notes Problem Polyneuropathy due to type 2 diabetes mellitus (906213704) Type 2 diabetes mellitus with diabetic polyneuropathy (E11.42) Active confirmed Problem Long-term current use of insulin (683052795) 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 insulin (Z79.4) Active confirmed Problem Charcot's arthropathy (528079689) Charcot's arthropathy (M14.60) Active confirmed Plan Of Treatment No Information Insurance Providers Payer Name Payer Address Payer Phone Subscriber Number Group Number Insured Name Patient Relationship to Insured Coverage Start Date Coverage End Date [employer] of [place] [address] [place] [phone] [id number] Nikky Elizalde Self - patient is the insured Medical (General) History Medical History History ICD Code hypertension phlebitis lymphangitis diabetes mellitus 2 with peripheral neur opathy diabetes mellitus 2 with renal manifesta tion vitamin b12 deficiency vitamin D deficiency anemia sarcoid anxiety insomnia lumbar spine stenosis pulmonary nodules
--- OUTSIDE RECORDS SUMMARY | 2024-11-06 16:19 | XMS_ITS | Encounter Summary ---
Author Organization [facility] Address [address] [place] [address] Care Team Providers Care Director Of Enterprise Applications Name Role Phone Gina Hahn MD Primary Care Provider [phone] Reason for Visit * Reason Onset Date Comments UTI 10/05/2024 Encounter Details Date Type Department Care Team ([facility] st Contact Info) Description 10/05/2024 Telephone Internal Medicine - [place] [address] [facility] [address] [place] [address] Gina Hahn MD [address] [facility] [address] [place] [address] Social History Tobacco Use Types Packs/Day Years Used Date Smoking Tobacco: Former Smokeless Tobacco: Former Alcohol Use Standard Drinks/Week Comments No 0 [...] care for your loved ones. For example, home child care provider or elderly care for an older adult? [...] on file Sexual Orientation Not on file documented as of this encounter Ordered Prescriptions Prescription Sig Dispense Quantity Refills Last Filled Start Date End Date nitrofurantoin, macrocrystal-monoh ydrate, (MACROBID) 100 mg capsule Take 1 capsule (100 mg total) by mouth 2 (two) times a day for 7 days. 14 each 10/06/2024 documented in this encounter Progress Notes * Gina Hahn MD - 10/06/2024 6:50 AM EDT Sent macrobid * Nyiah Vásquez - 10/05/2024 2:41 PM EDT Pt called and requested antibiotic because she is having lower abdominal pressure, frequency urinating and a odor when she urinates and she believes it is a uti. Please advise Cb# [phone] documented in this encounter Plan of Treatment Not on file documented as of this encounter Visit Diagnoses Not on filedocumented in this encounter Additional Health Concerns Assessment Noted Time PHQ-9 Depression Total Score: 17 025 2:06 PM EST documented as of this encounter Care Teams Director Of Enterprise Applications Relationship Specialty Start Date End Date Gina Hahn MD [address] [place] [phone] PCP - General Internal Medicine 08/25/16 documented as of this encounter
--- OUTSIDE RECORDS SUMMARY | 2024-11-06 16:19 | XMS_ITS | Encounter Summary ---
Author Organization [facility] Address [address] [place] [address] Care Team Providers Care Sql Engineer Name Role Phone Gina Hahn MD Primary Care Provider [phone] Encounter Details Date Type Department Care Team ([facility] st Contact Info) Description 02/07/2024 Referral Triage [facility] [address] [place] [address] Kiya Salguero Social History Tobacco Use Types Packs/Day Years Used Date Smoking Tobacco: Former Smokeless Tobacco: Former Alcohol Use Standard Drinks/Week Comments No 0 (1 standard drink = 0.6 oz pur e alcohol) Comments Unknown Sex and Gender Information Value Date Recorded Sex Assigned at Not on file Legal Sex Female 7:29 AM EST Gender Identity Not on file Sexual Orientation Not on file documented as of this encounter Plan of Treatment Not on file documented as of this encounter Visit Diagnoses Not on filedocumented in this encounter Care Teams Sql Engineer Relationship Specialty Start Date End Date Gina Hahn MD [address] [address] PCP - General Internal Medicine 08/25/16 documented as of this encounter
== END 2024-11-06 16:00 | disposition home or self-care (01) ==
LOC: HO.HSM 14:58
PROVIDERS: PCP Internal Medicine; Visit Provider Psychiatry & Neurology Neurology
DX: I69.351 Hemiplegia and hemiparesis following cerebral infarction affecting right dominant side (principal); D86.9 Sarcoidosis, unspecified
CPT/HCPCS: 99204

== ENCOUNTER → 2024-11-06 14:58 | Outpatient (BNVA) | payer BC, MEDICARE, SELFPAY | PROVIDERS: PCP Internal Medicine; Visit Provider Psychiatry & Neurology Neurology | DX: I69.351 Hemiplegia and hemiparesis following cerebral infarction affecting right dominant side (principal); D86.9 Sarcoidosis, unspecified | CPT/HCPCS: 99202 ==

== ENCOUNTER 2024-12-13 11:05 | Outpatient (REF) | payer BC, MEDICARE, SELFPAY ==
--- NOTE | ~2024-12-13 | MR_ITS ---
EXAMINATION: MR BRAIN WITHOUT AND WITH CONTRAST CLINICAL INFORMATION: Hemiparesis. Numbness from head to the foot right side. Bilateral leg weakness. History of bilateral retinal detachment. History of sarcoidosis. History of stroke in 2019. COMPARISON: No prior available. TECHNIQUE: Multiplanar, multisequence MRI of the brain was obtained before and after the intravenous administration of 9 mL Gadavist. Examination performed on a 1.5 Cecille Siemens high-field unit. Standard sequences were utilized. FINDINGS: There is no diffusion restriction. There is no intracranial hemorrhage, acute infarction, mass effect, or edema. There is an old left parietal lobe infarct with associated gliosis, hemosiderin deposition, and cystic encephalomalacia. Mild resultant ex vacuo dilatation of the left lateral ventricular posterior body and atrium. Otherwise, Ventricles, sulci, and cisterns are diffusely mildly more prominent than would be expected for patient age. No asymmetric pattern of atrophy. No hydrocephalus. No shift of midline. There are scattered punctate and mildly confluent foci of white matter T2 hyperintensity in the periventricular, subcortical, and hemispheric deep white matter. These foci are nonspecific but statistically relate to mild to moderate small vessel ischemic changes. There are old lacunar infarcts in the bilateral dinorah, with associated punctate hemosiderin deposition on the left. Old lacunar type infarcts also present in the bilateral thalami, left caudate head, and left mid to posterior centrum semiovale. After the administration of contrast, there is a small enhancing developmental venous anomaly abutting the frontal horn of the right lateral ventricle (series 13, image 15). There is otherwise no pathological intra or extra-axial contrast enhancement. Midline structures appear normally formed. There is a partial empty sella. Posterior fossa structures appear normal. Cerebellar tonsils are appropriately located. Major flow voids are preserved within the skull base. The globes demonstrate susceptibility artifact in the right globe likely from vitrectomy for retinal detachment. There is also a left retinal detachment present. Orbital contents demonstrate mild bilateral lacrimal gland hypertrophy. Paranasal sinuses demonstrate moderate scattered mucosal thickening throughout the ethmoid sinuses and bilateral frontal recesses. Mild mucosal thickening in the dependent maxillary antra bilaterally. Tympanic cavities and mastoids are normally aerated. Nasal septum is midline without spur. Extracranial soft tissues demonstrate mild adenoidal hypertrophy, presumably reactive. No suspicious bone marrow changes are evident. Atlantoaxial joint appears normal. MR/MR head/brain wo/w con IMPRESSION: 1. No evidence of intracranial hemorrhage, acute infarction, mass effect, or edema. No pathological intra-axial or extra-axial contrast enhancement. 2. Mildly age advanced parenchymal atrophy. 3. Old left parietal infarct with associated hemosiderin deposition and gliosis/cystic encephalomalacia. 4. Several tiny old lacunar type infarcts, including within the bilateral thalami and bilateral dinorah. 5. Mild to moderate white matter changes of small vessel ischemia. 6. Susceptibility artifact in the right globe likely from prior vitrectomy for retinal detachment. There is a left retinal detachment as well. Electronically signed by: Tobias Cordova MD 12/13/2024 12:39 PM [facility]
--- OUTSIDE RECORDS SUMMARY | 2024-12-13 13:45 | XMS_ITS | Patient Health Record ---
Author Organization [facility] Address [address] [facility] [address] [place] [address] Care Team Providers Care Shell Mold Bonding Machine Operator Name Role Phone Gina Hahn Primary Care [...] Polyneuropathy due to type 2 diabetes mellitus (107885788) Type 2 diabetes mellitus with diabetic polyneuropathy (E11.42) Active confirmed Problem Long-term current use of insulin (966905603) USP (current) use of insulin (Z79.4) Active confirmed Problem Charcot's arthropathy (329806017) Charcot's arthropathy (M14.60) Active confirmed Plan Of Treatment No Information Insurance Providers Payer Name Payer Address Payer Phone Subscriber Number Group Number Insured Name Patient Relationship to Insured Coverage Start Date Coverage End Date [employer] of [place] [address] [place] [phone] [id number] Nikky Elizalde Self - patient is the insured Medical (General) History Medical History History ICD Code hypertension phlebitis lymphangitis diabetes mellitus 2 with peripheral neur opathy diabetes mellitus 2 with renal manifesta tion vitamin b12 deficiency vitamin D deficiency anemia sarcoid anxiety insomnia lumbar spine stenosis pulmonary nodules
--- OUTSIDE RECORDS SUMMARY | 2024-12-13 13:45 | XMS_ITS | Data Portability ---
Author Organization [place] - [facility] Address [address] [place] [id number] Care Team Providers Care Survey Research Teacher Name Role Phone SANJUANA JULIAN Primary Care Provider Assessment Encounter Date Assessment Date Assessment LastModified by Organization Details LastModified Time 05/22/2020 05/22/2020 Overview/History : 50 y/o F with PMHx sig for IDDM, DVT, PE, TIA, sarcoidosis, neuropathy, and charcot syndrome, known to but new to this provider who presents w/ c/o low back pain x3 days. Patient reports gradual onset and worsening of aching warm low back pain across her low back. Denies radiation of pain. Denies injury or fall but does admit to continuous muscle spasms in the same area over the past week that have resolved. Patient is concerned that she may have a kidney infection or something wrong with her kidneys related to her sarcoidosis. Patient does get frequent UTIs and denies dysuria or burning with urination, cloudy or malodorous urine, urinary frequency, difficulty urinating, or hematuria. She does admit to some discomfort when laying down at night and pain is worsened with bilateral back flexion worse on the right. She hydrates well. Recently treated for UTI with Cipro last month. Denies CP, SOB, fever, chills, nausea, vomiting, or new numbness or tingling. 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 Exam: afebrile, RRR, normotensive, normal resps, O2 sat 99% on RA, non-toxic, well appearing. GENERAL: well developed, well nourished, appears stated age, sitting comfortably in wheelchair no acute distress. RESP: normal I:E, breathing non-labored, no accessory muscle use, clear to auscultation bilaterally, no wheezes, rhonchi, or rales. CARDIO: RRR, normal S1, S2, no murmurs, rubs, or gallops, radial pulses 2+ bilaterally. MUSK: spine nontender, paraspinal muscles TTP at level of L1 right worse than left and exacerbated with bilateral back flexion, SI joints mildly TTP, back with normal strength, ROM, muscle tone, no atrophy, no CVAT, negative straight leg raise bilaterally. EXTREMITIES: warm, well perfused, no cyanosis, swelling or rashes. NEURO: awake, alert, oriented x3, moving all extremities spontaneously, numbness of the bilateral feet at baseline. DDx considered, but not limited to: pyelonephritis - unlikely, afebrile, no urinary sxs, no CVAT, UA bland nephrolithiasis - unlikely, no radiating pain, no hematuria or dysuria dehydration - unlikely, patient hydrates well, no ketonuria or elevated usg AAA - unlikely, no radiating pain, extremities warm and well perfused, VSS HNP - unlikely, no injury or intervertebral tenderness sciatica - unlikely negative straight leg raise Sacroilitis - unlikely, more paraspinal tenderness low back strain - likely given past week of continuous muscle spasms Work up/Results: UA bland. BMP and CBC pending. Plan/Discussion: -acute low back strain due to recent muscle spasming -Rx sent for lidocaine patches, continue light stretching -Rec massage and heating pad -will call with lab results -f/u with PCP in 3-5 days Thank you [facility] your [facility]. We cannot always find the exact cause of your symptoms during your initial visit. Please follow up with your primary care provider or specialist to be rechecked or seek medical attention if your symptoms do not go away or get worse. If you develop any new or worsening symptoms and need after hours care, please go to nearest ER and/or call 911. If you have additional concerns or develop a change in your condition between 8am-10pm, please call [facility] at [phone] to help navigate your care. In order to obtain further information and compare any laboratory results/values, I have accessed old patient records. This information was pertinent in my medical decision making today. Time On Scene with Patient: 00:44:06 [email or web address] Not available 05/22/2020 14:03:14 01/01/2021 01/01/2021 Overview/History : chronically ill 50 year old female, new to provider known to , seeking further evaluation of right ear after removal of tick. She wants to confirm full removal was completed. Exam: AAOX3 sitting in wheelchair, NAD, denies any pain + abrasion at 6 oclock to right external canal + cerumen to 9 oclock successfully removed with curette RRR, no murmur lungs CTAB no rash DDx considered, but not limited to: AOM vs. acute otitis external vs. tick bite vs. foreign body vs. impacted cerumen Work up/Results: removal of cerumen to right ear Plan/Discussion: Concerned 50 year old female who was had no evidence of foreign body in bilateral ears. Scant cerumen successfully removed with curette. Pt tolerated well. No hearing loss. No evidence of cellulits. Advised to treat cat for ticks to prevent future bites. Monitor for any fevers, headache, arthralgia, sensitivity to light. If you develop any new or worsening symptoms please call or follow up with PCP. Sice tick was in place less than 12 hours and was not engorged no use of doxycycline needed. Pt verbalized understanding and agrees to plan of care. Proper Personal Protective Equipment (PPE), including gloves, eye protection and masks were donned and doffed appropriately and all equipment cleaned using approved technique with germicidal disposable wipes prior to and after care of this patient according to [facility]'s infection prevention protocols. Not available 01/02/2021 20:42:58 01/15/2021 01/15/2021 Overview/History : 50 yo wheel chair bound female PMH sarcoidosis, T2DM, CVA and recurrent UTIs who c/o cloudy and odorous urine for 2 days, no dysuria or other associated symptoms Also c/o recurrent irritation and ? lesion to left nostril for 2 years, no pain, no bleeding, no change in lesion over time. Exam: Afebrile, VSS, Nontoxic appearing, HEENT unremarkable other than scaly lesion to left lateral nare, respiration unlabored and lungs CTA, Normal heart sounds and RRR, no MGRs, Abd soft and nontender, no CVA tenderness DDx considered, but not limited to: UTI, Complicated UTI, Pyelonephritis, Dehydration, Vaginitis Also nasal abscess, nasal polyps, HSV, abrasion, nasal ulcer No evidence of acute bacterial or systemic infection. Well appearing patient. Lesion to left nare chronic, nare is patent and without suspicious appearance Work up/Results: Urine dipstick negative + for glucose and ketones but negative for Nitrite and 1+ leuks, Urine culture pending Plan/Discussion: Reviewed urine dipstick with patient. Discussed low likelihood of acute urinary infection but due to history of recurrent UTIs with chronic illness history, will cover empirically with cephalexin 500 mg po BID for 7 days, while pending Urine culture. Advised increased fluids and monitoring for any fever, pain or worsening symptoms. Patient requested one dose of AZO to prevent pain from developing. Also likely nasal polyp but due to chronicitiy of nasal irritation and patient concern, advised follow up with ENT, Dr Huffman for further evaluation. In order to obtain further information and compare any laboratory results/values, I have accessed patient records on the [employer]. This information was pertinent in my medical decision making today. [email or web address] Not available 01/15/2021 11:06:44 01/20/2022 01/20/2022 Brief Overview: Patient is a 51 year old female who is known to DH/new to provider who is wheel chair bound with a PMH including sarcoidosis, T2DM, CVA and recurrent UTIs who is reporting a rash to her upper back/neck with a burning/itchy sensation to L side of face. There is no reports of rash to face or eye pain/involvement. Onset of symptoms 2-3 days ago. Denies any fevers or any other complaints. Vital Signs: 96.7, HR 89, 124/80, RR 16 95% RA Exam: Patient is awake and alert, very pleasant. Wheel chair bound. Family present. She is in no distress, answering questions appropriately and speaking in clear full sentences. LS CTA. RRR. Vitals stable, a febrile. Moist mucous membranes. Erythematous papules noted to L upper back. DDx considered, with rationale: Herpes Zoster; likely given her rash present to L upper back with reports of burning sensation in same dermatome. Candidiasis; ruled out, skin is without maceration or confluent plaques, area is also not in a dry/moist region. Cellulitis; ruled out, there are no signs of infection, a febrile. She will be treated for herpes zoster with a course of Valtrex to be taken as directed. This is optimal she is close to initiating tx <72 hours onset of symptoms and the rash has not started to blister. I have also encouraged her to use Tylenol 650mg every 6-8 hours as needed for pain. She may also use calamine lotion as needed for itch. I have let her know to avoid any child < 1 year of age, women or those who are varicella naive. She is understanding and in agreement with plan. She does not have eye involvement however educated that should she develop any eye irritate or irritation to tip of nose (could indicate ocular involvement) she needs emergent opthamology evaluation as this virus can lead to blindness. All questions asked answered and she thanked us for the care provided. Will follow up with PCP in 5-7 days and ED precautions discussed specifically if eye complaints develop and there is no opthamology available. Proper Personal Protective Equipment (PPE), including gloves, eye protection and masks were donned and doffed appropriately and all equipment cleaned using approved technique with germicidal disposable wipes prior to and after care of this patient according to [facility] infection [facility] protocols. Not available 01/20/2022 13:23:40 02/07/2022 02/07/2022 Brief Overview: 51 y/o female known to DH new to provider with hx of DM, DVT, TIA, sarcoidosis, neuropathy, anxiety. pt reports about2-3 weeks ago she was dx with shingles left shoulder/ neck and left face. she finished rx valtrex 1 week ago. lesions resolved. pt reports 2 days ago she noticed her right ear lobe is painful and red and warm, oozing at times. no known injury. she also reports tingling feeling by her right nostril and right upper and lower lip. she does have a hx of cold sores but has not seen any lesions. throat today feels scratchy at times. no fever, cp, sob. she also has chronic hx of arthritis and neuropathy reports right arm at times tingles also. denies any weakness, MENA, dizziness, dysarthria, dry eyes. Pt concerned for infection and or recurrence of shingles. she denies weakness, numbness, incontinence. Vital Signs: BP 136/74, HR 86, RR 18, T 97.8, O2 98% Exam: pleasant 51 y/o female well appearing, alert, NAD. eyes: PERRLA, no injection, icterus, discharge. mouth: moist mucous membranes, no erythema, uvula is midline. ears: TMs clear, EAC clear. posterior aspect of right ear lobe skin is dry and cracked, with localized erythema, edema, warmth. no drainage. tender to palpation. no cervical lymphadenopathy. lungs: CTAB. heart: RRR no murmurs rubs or gallops. no peripheral edema. abdomen: obese, soft, normal bowel sounds, non tender. strength is normal and equal bilaterally. cranial nerves III-XII intact. no facial droop or dysarthria. no skin lesions or edema, erythema noted on the face/ lips. DDx considered, with rationale: CVA: considered but no focal weakness on exam. Trigeminal Neuralgia: considered but cranial nerves intact, no reported pain or spasms. Shingles: considered no rash noted on exam. [place] palsy: considered but no one sided facial weakness/ droop. Results/ work up: N/A Plan: cellulitis right ear lobe: avoid picking or scratching the area. keep it clean and dry, wash with soap and water. start Rx Doxycycline 100 mg 1 tab po bid x10 days take with food. start Rx mupirocin 2% apply to affected area twice daily x 7 days. follow up with pcp in 3-5 days or sooner prn. go to the ER with worsening symptoms cp, sob, fever, facial swelling/ redness. Plan for paresthesia: hx of cold sores and recent shingles infection left face/ neck/ shoulder. suspect HSV flare vs neuropathy. start Rx Valtrex 1 g take 2 tabs PO q 12 hours x 1 days. follow up with pcp in 2-3 days or sooner prn. go to the ER if symptoms worsen cp, dizziness, MENA, weakness, vision changes, dysarthria. Proper Personal Protective Equipment (PPE), including gloves, eye protection and masks were donned and doffed appropriately and all equipment cleaned using approved technique with germicidal disposable wipes prior to and after care of this patient according to [facility]'s infection prevention protocols. Time On Scene with Patient: 01:03:29 [email or web address] Not available 02/07/2022 19:49:35 Plan of Treatment Reminders Order Date Submit Date Provider Last Modified By Organization Details Last Modified Time Details Appointments None recorded. Lab urinalysis , dipstick 2020 021 kel [facility], [address], [place], [address], 10:12:23 culture, urine 2020 021 HAYDEN [facility] (Centralized Electronic Ordering - All Locations), Patient Can Go To The Location Of Their Choice, [id number] 09:14:09 urinalysis , dipstick 2020 021 [email or web address] [facility] [place], [address], [place], [address], 13:57:23 BMP, serum or plasma 2020 021 HAYDEN [facility] (Centralized Electronic Ordering - All Locations), Patient Can Go To The Location Of Their Choice, [facility] 21:20:37 CBC w/ auto diff 2020 021 HAYDEN [facility] (Centralized Electronic Ordering - All Locations), Patient Can Go To The Location Of Their Choice, [facility] 20:50:04 Referral None recorded. Procedures None recorded. Surgeries None recorded. Imaging None recorded. Medication Orders doxycyclin e hyclate 100 mg tablet 2022 023 [email or web address] [facility]acy #[id number], [address] [place], [address], 3 19:37:57 mupirocin 2 % topical ointment 2022 023 [facility]armacy #[id number], [address] [place], [address], 3 10:32:50 Valtrex 1 gram tablet 2022 023 [facility]/Pharmacy #[id number], [address] [place], [address], 3 10:32:47 valacyclov ir 1 gram tablet 2021 022 [email or web address] [facility][id number], [address] [place], [address], 3 10:07:34 cephalexin 500 mg tablet 2020 021 [email or web address] [id number], [address] [place], [address], 2 12:58:33 Azo Urinary Pain Relief 95 mg tablet 2020 021 [email or web address] Not available 12:59:31 lidocaine 5 % topical patch 2020 DBA_PATCH_ [id number] [facility]/Pharmacy #[id number], [address] [place], [address], 08:33:53 Patient TargetsNo targets recorded. Patient Instructions Encounter Date Encounter Id Patient Instructions Last Modified By Organization Details Last Modified Time 01/01/2021 [id number] Thank you for yo ur visit [facility] today. We cannot always find the exact cause of your symptoms during your initial visit. Please follow up with your primary care provider or specialist as needed to be rechecked or seek medical attention if your symptoms do not go away or get worse. If you develop any new or worsening symptoms and need after hours care, please go to nearest ER and/or call 911. If you have additional concerns or develop a change in your condition between 8am-10pm, please call [facility] at [phone] to help navigate your care. Not available 01/02/2021 20:43:08 01/15/2021 [id number] URINARY TRACT INFECTION INSTRUCTIONS BASIC INFORMATION Urinary tract infections(UTI) can involve any portion of the urinary tract. The most common presentation is a bladder infection/cystitis, which usually presents with urinary frequency, burning with urination, urgency, foul smelling cloudy urine and occasionally blood. Kidney infections are less frequent, but more serious, and present with fever, flank pain, malaise and sometimes shaking chills. UTI s are common in women because of the female anatomy, and much less common in males. INSTRUCTIONS Drink plenty of fluid, water is best. Drinking fluids will help to flush the bacteria from your body. Urinate every 2-3 hours Wear cotton underwear and avoid Nylon, Spandex and Lycra which tend to trap moisture and thong underwear which may facilitate UTI s . Avoid tub baths Avoid using Super Tampons Use only mild unscented soap to wash your genitals, such as Dove or Ivory, avoid heavily scented body washes. If you are sexually active urinate as soon as possible after intercourse. Yogurt and probiotics may help to establish a more healthy genital environment, and aid in prevention. MEDICATIONS 1.Antibiotics: Usually prescribed if you have a UTI, there are many different effective antibiotics available. It is important that you complete the course of antibiotics you are given. You should feel some improvement within 24-48 hours, if you do not it may be that the bacteria causing your infection is resistant to the prescribed medication. If a urine culture is obtained it will usually take at least 3-4 days to get the final result. 2. Anesthetic/Pain relievers: Phenazopyridine (Pyridium, Uribelle, AZO) is an anesthetic excreted in the urine. This medicine will turn your urine BRIGHT ORANGE! This is normal, and may stain your underwear can contacts. Take this medication as directed with food. 3. Tylenol and Ibuprofen can be helpful for the pain, fever and body aches that can be associated with a kidney infection. Please follow recommended dosing instructions on the bottle. FOLLOW UP 1. If your symptoms are not improving in 24-48 hours 2. If your symptoms are getting more severe 3. Any unusual vaginal discharge 4. Symptoms recur after you complete medication SEEK CARE IMMEDIATELY IF 1.You have shaking chills or temperature over 101.5 2. Severe flank pain 3. Persistent vomiting, unable to keep fluids or medicine down. 4. Worse despite medication. If you develop any new or worsening symptoms and need after hours care, please go to nearest ER and/or call 911. If you have additional concerns or develop a change in your condition between 8am-10pm, please call [facility] at [phone] to help navigate your care. [email or web address] Not available 01/15/2021 10:20:34 01/20/2022 [id number] shingles: care instructions Not available 01/20/2022 13:23:40 Reason for Referral None Reported. Results Created Date Observation Date Name Description Value Unit Range Abnormal Flag Note LastModifiedBy Organization Detail LastModifiedTime 05/23/19 21 05/22/2020 urina lysis , dipst ick Appearance clear Not Available [facility] [address] [place], [address], 05/22/2020 13:22:06 05/23/19 21 05/22/2020 urina lysis , dipst ick Color light yellow Not Available [facility] [address] [place], [address], 05/22/2020 13:22:06 05/23/19 21 05/22/2020 urina lysis , dipst ick Glucose positi ve Not Available [facility] [place] [facility] [address] [place], [address], 05/22/2020 13:22:06 05/23/19 21 05/22/2020 urina lysis , dipst ick Bilirubin negati ve Not Available [facility] [address], [place], [address], 05/22/2020 13:22:06 05/23/19 21 05/22/2020 urina lysis , dipst ick Ketones NEG Not Available [facility] [address] [place], [address], 05/22/2020 13:22:06 05/23/19 21 05/22/2020 urina lysis , dipst ick Sp. Weed 1.015 Not Available [facility] [address] [place], [address], 05/22/2020 13:22:06 05/23/19 21 05/22/2020 urina lysis , dipst ick Blood NEG Not Available [facility] [address] [place], [address], 05/22/2020 13:22:06 05/23/19 21 05/22/2020 urina lysis , dipst ick pH 5.0 Not Available [facility] [address] [place], [address], 05/22/2020 13:22:06 05/23/19 21 05/22/2020 urina lysis , dipst ick Protein positi ve Not Available [facility] [address] [place], [address], 05/22/2020 13:22:06 05/23/19 21 05/22/2020 urina lysis , dipst ick Urobilirubin negati ve Not Available [facility] [address] [place], [address], 05/22/2020 13:22:06 05/23/19 21 05/22/2020 urina lysis , dipst ick Nitrites NEG Not Available [facility] [address] [place], [address], 05/22/2020 13:22:06 05/23/19 21 05/22/2020 urina lysis , dipst ick Leukocytes NEG Not Available [facility] [address] [place], [address], 05/22/2020 13:22:06 05/23/19 21 05/22/2020 CBC w/ auto diff WBC 11.8 K/mm3 (4.0-1 1.0) high Not Available [facility] (Centralized Electronic Ordering - All Locations) Patient Can Go To The Location Of Their Choice, 05/22/2020 20:50:04 05/23/19 21 05/22/2020 CBC w/ auto diff RBC 3.91 M/mm3 (4.20- 5.40) low Not Available [facility] (Centralized Electronic Ordering - All Locations) Patient Can Go To The Location Of Their Choice, 05/22/2020 20:50:04 05/23/19 21 05/22/2020 CBC w/ auto diff HGB 11.5 gm/dL (11.7- 15.5) low Not Available [facility] (Centralized Electronic Ordering - All Locations) Patient Can Go To The Location Of Their Choice, 05/22/2020 20:50:04 05/23/1905/22/2020 CBC w/ auto diff HCT 36.0 % (35.7- 45.8) Not Available [facility] (Centralized Electronic Ordering - All Locations) Patient Can Go To The Location Of Their Choice, 05/22/2020 20:50:04 05/23/1905/22/2020 CBC w/ auto diff MCV 92.1 fL (80.0- 100.0) Not Available [facility] (Centralized Electronic Ordering - All Locations) Patient Can Go To The Location Of Their Choice, 05/22/2020 20:50:04 05/23/1905/22/2020 CBC w/ auto diff MCH 29.4 pg (27.0- 34.0) Not Available [facility] (Centralized Electronic Ordering - All Locations) Patient Can Go To The Location Of Their Choice, 05/22/2020 20:50:04 05/23/1905/22/2020 CBC w/ auto diff MCHC 31.9 g/dL (33.0- 37.0) low Not Available [facility] (Centralized Electronic Ordering - All Locations) Patient Can Go To The Location Of Their Choice, 05/22/2020 20:50:04 05/23/1905/22/2020 CBC w/ auto diff plt 334 K/mm3 (150-4 60) Not Available [facility] (Centralized Electronic Ordering - All Locations) Patient Can Go To The Location Of Their Choice, 05/22/2020 20:50:04 05/23/1905/22/2020 CBC w/ auto diff RDW-SD 47.3 fL (<47.0 ) high Not Available [facility] (Centralized Electronic Ordering - All Locations) Patient Can Go To The Location Of Their Choice, 05/22/2020 20:50:04 05/23/1905/22/2020 CBC w/ auto diff MPV 11.2 fL (9.4-1 2.4) Not Available [facility] (Centralized Electronic Ordering - All Locations) Patient Can Go To The Location Of Their Choice, 05/22/2020 20:50:04 05/23/1905/22/2020 CBC w/ auto diff automated NRBC 0.0 #/100 _WBC' s Not Available [facility] (Centralized Electronic Ordering - All Locations) Patient Can Go To The Location Of Their Choice, 05/22/2020 20:50:04 05/23/1905/22/2020 CBC w/ auto diff abs. NRBC 0.0 K/mm3 Not Available [facility] (Centralized Electronic Ordering - All Locations) Patient Can Go To The Location Of Their Choice, 05/22/2020 20:50:04 05/23/1905/22/2020 CBC w/ auto diff neut # 8.3 K/mm3 (1.3-7 .0) high Not Available [facility] (Centralized Electronic Ordering - All Locations) Patient Can Go To The Location Of Their Choice, 05/22/2020 20:50:04 05/23/1905/22/2020 CBC w/ auto diff lymph # 2.6 K/mm3 (0.8-3 .1) Not Available [facility] (Centralized Electronic Ordering - All Locations) Patient Can Go To The Location Of Their Choice, 05/22/2020 20:50:04 05/23/1905/22/2020 CBC w/ auto diff mono# 0.4 K/mm3 (0.4-0 .9) Not Available [facility] (Centralized Electronic Ordering - All Locations) Patient Can Go To The Location Of Their Choice, 05/22/2020 20:50:04 05/23/1905/22/2020 CBC w/ auto diff eo # 0.2 K/mm3 (0.0-0 .4) Not Available [facility] (Centralized Electronic Ordering - All Locations) Patient Can Go To The Location Of Their Choice, 05/22/2020 20:50:04 05/23/1905/22/2020 CBC w/ auto diff baso # 0.1 K/mm3 (0.0-0 .1) Not Available [facility] (Centralized Electronic Ordering - All Locations) Patient Can Go To The Location Of Their Choice, 05/22/2020 20:50:04 05/23/1905/22/2020 CBC w/ auto diff abs. imm gran 0.1 K/mm3 Not Available [facility] (Centralized Electronic Ordering - All Locations) Patient Can Go To The Location Of Their Choice, 05/22/2020 20:50:04 05/23/1905/22/2020 CBC w/ auto diff neut 70.9 % (44-76 ) Not Available [facility] (Centralized Electronic Ordering - All Locations) Patient Can Go To The Location Of Their Choice, 05/22/2020 20:50:04 05/23/1905/22/2020 CBC w/ auto diff lymph 22.4 % (15-43 ) Not Available [facility] (Centralized Electronic Ordering - All Locations) Patient Can Go To The Location Of Their Choice, 05/22/2020 20:50:04 05/23/1905/22/2020 CBC w/ auto diff monocyte 3.6 % (4.5-1 0.5) low Not Available [facility] (Centralized Electronic Ordering - All Locations) Patient Can Go To The Location Of Their Choice, 05/22/2020 20:50:04 05/23/1905/22/2020 CBC w/ auto diff eo 1.9 % (0-6) Not Available [facility] (Centralized Electronic Ordering - All Locations) Patient Can Go To The Location Of Their Choice, 05/22/2020 20:50:04 05/23/1905/22/2020 CBC w/ auto diff baso 0.8 % (0-2) Not Available [facility] (Centralized Electronic Ordering - All Locations) Patient Can Go To The Location Of Their Choice, 05/22/2020 20:50:04 05/23/1905/22/2020 CBC w/ auto diff imm gran 0.4 % Not Available [facility] (Centralized Electronic Ordering - All Locations) Patient Can Go To The Location Of Their Choice, 05/22/2020 20:50:04 05/23/1905/22/2020 BMP, serum or plasm a glucose 134 mg/dL (70-99 ) high Not Available [facility] (Centralized Electronic Ordering - All Locations) Patient Can Go To The Location Of Their Choice, 05/22/2020 21:20:37 05/23/1905/22/2020 BMP, serum or plasm a BUN 29 mg/dL (6-20) high Not Available [facility] (Centralized Electronic Ordering - All Locations) Patient Can Go To The Location Of Their Choice, 05/22/2020 21:20:37 05/23/1905/22/2020 BMP, serum or plasm a creatinine 1.0 mg/dL (0.5-1 .0) Not Available [facility] (Centralized Electronic Ordering - All Locations) Patient Can Go To The Location Of Their Choice, 05/22/2020 21:20:37 05/23/1905/22/2020 BMP, serum or plasm a sodium 136 mmol/ L (133-1 45) Not Available [facility] (Centralized Electronic Ordering - All Locations) Patient Can Go To The Location Of Their Choice, 05/22/2020 21:20:37 05/23/1905/22/2020 BMP, serum or plasm a potassium 4.5 mmol/ L (3.6-5 .2) Not Available [facility] (Centralized Electronic Ordering - All Locations) Patient Can Go To The Location Of Their Choice, 05/22/2020 21:20:37 05/23/1905/22/2020 BMP, serum or plasm a chloride 101 mmol/ L (98-10 7) Not Available [facility] (Centralized Electronic Ordering - All Locations) Patient Can Go To The Location Of Their Choice, 05/22/2020 21:20:37 05/23/1905/22/2020 BMP, serum or plasm a bicarbonate 25 mmol/ L (22-29 ) Not Available [facility] (Centralized Electronic Ordering - All Locations) Patient Can Go To The Location Of Their Choice, 05/22/2020 21:20:37 05/23/1905/22/2020 BMP, serum or plasm a anion gap 10 (4-17) Not Available [facility] (Centralized Electronic Ordering - All Locations) Patient Can Go To The Location Of Their Choice, 05/22/2020 21:20:37 05/23/1905/22/2020 BMP, serum or plasm a calcium 9.0 mg/dL (8.6-1 0.5) Not Available [facility] (Centralized Electronic Ordering - All Locations) Patient Can Go To The Location Of Their Choice, 05/22/2020 21:20:37 05/23/1905/22/2020 BMP, serum or plasm a est GFR non 65 mL/mi n/1.7 3_M2 Creat inine based estim ated glome rular filtr ation rate (eGFR ) is calcu lated using the Chron ic Kidne y Disea se Epide miolo gy Colla borat ion (CKD- EPI). The CKD-E PI creat inine equat ion has not been valid ated in child alida (<18 years ), pregn ant women or in some racia l or ethni c subgr oups other than Cauca sians and Afric an Ameri cans. Not Available [facility] (Centralized Electronic Ordering - All Locations) Patient Can Go To The Location Of Their Choice, 05/22/2020 21:20:37 05/23/1905/22/2020 BMP, serum or plasm a est GFR 75 mL/mi n/1.7 3_M2 Creat inine based estim ated glome rular filtr ation rate (eGFR ) is calcu lated using the Chron ic Kidne y Disea se Epide miolo gy Colla borat ion (CKD- EPI). The CKD-E PI creat inine equat ion has not been valid ated in child alida (<18 years ), pregn ant women or in some racia l or ethni c subgr oups other than Cauca sians and Afric an Ameri cans. Not Available [facility] (Centralized Electronic Ordering - All Locations) Patient Can Go To The Location Of Their Choice, 05/22/2020 21:20:37 01/16/2001/16/2021 URINE CULTU RE specimen description URINE Not Available [facility] ([facility] Order[facility] - All Locations) Patient Can Go To The Location Of Their Choice, 01/18/2021 09:14:09 01/16/2001/16/2021 URINE CULTU RE special requests NONE Not Available [facility] (Centralized Electronic Ordering - All Locations) Patient Can Go To The Location Of Their Choice, 01/18/2021 09:14:09 01/16/2001/18/2021 URINE CULTU RE culture >100,0 00 COL/ML KLEBSI KIESHA PNEUMO NIAE abnormal Not Available [facility] (Centralized Electronic Ordering - All Locations) Patient Can Go To The Location Of Their Choice, 01/18/2021 09:14:09 01/16/2001/18/2021 URINE CULTU RE report status FINAL 2020 Not Available [facility] (Centralized Electronic Ordering - All Locations) Patient Can Go To The Location Of Their Choice, 01/18/2021 09:14:09 01/16/2001/18/2021 URINE CULTU RE organism ORGANI SM >100,0 00 COL/ML KLEBSI KIESHA PNEUMO NIAE Not Available [facility] (Centralized Electronic Ordering - All Locations) Patient Can Go To The Location Of Their Choice, 01/18/2021 09:14:01/16/2001/18/2021 URINE CULTU RE method METHOD MIN. INHIB. CONC. (MCG/M L) Not Available [facility] (Centralized Electronic Ordering - All Locations) Patient Can Go To The Location Of Their Choice, 01/18/2021 09:14:09 01/16/2001/18/2021 URINE CULTU RE ampicillin AMPICI LLIN RESIST ANT resistant Not Available [facility] (Centralized Electronic Ordering - All Locations) Patient Can Go To The Location Of Their Choice, 01/18/2021 09:14:09 01/16/2001/18/2021 URINE CULTU RE ampicillin/s ulbactam AMPICI LLIN/S ULBACT AM SUSCEP TIBLE susceptib le Not Available [facility] (Centralized Electronic Ordering - All Locations) Patient Can Go To The Location Of Their Choice, 01/18/2021 09:14:09 01/16/2001/18/2021 URINE CULTU RE amoxicillin/ clavulanic acid AMOXIC ILLIN/ CLAVUL AN SUSCEP TIBLE susceptib le Not Available [facility] (Centralized Electronic Ordering - All Locations) Patient Can Go To The Location Of Their Choice, 01/18/2021 09:14:09 12/0901/18/2021 URINE CULTU RE cefazolin CEFAZO ARYA SUSCEP TIBLE susceptib le Not Available [facility] (Centralized Electronic Ordering - All Locations) Patient Can Go To The Location Of Their Choice, 01/18/2021 09:14:09 01/16/2001/18/2021 URINE CULTU RE cefepime CEFEPI ME SUSCEP TIBLE susceptib le Not Available [facility] (Centralized Electronic Ordering - All Locations) Patient Can Go To The Location Of Their Choice, 01/18/2021 09:14:09 01/16/2001/18/2021 URINE CULTU RE ceftriaxone CEFTRI AXONE SUSCEP TIBLE susceptib le Not Available [facility] (Centralized Electronic Ordering - All Locations) Patient Can Go To The Location Of Their Choice, 01/18/2021 09:14:09 01/16/2001/18/2021 URINE CULTU RE ciprofloxaci n CIPROF LOXACI N SUSCEP TIBLE susceptib le Not Available [facility] (Centralized Electronic Ordering - All Locations) Patient Can Go To The Location Of Their Choice, 01/18/2021 09:14:09 01/16/2001/18/2021 URINE CULTU RE ertapenem ERTAPE NEM SUSCEP TIBLE susceptib le Not Available [facility] (Centralized Electronic Ordering - All Locations) Patient Can Go To The Location Of Their Choice, 01/18/2021 09:14:09 01/16/2001/18/2021 URINE CULTU RE gentamicin GENTAM ICIN SUSCEP TIBLE susceptib le Not Available [facility] (Centralized Electronic Ordering - All Locations) Patient Can Go To The Location Of Their Choice, 01/18/2021 09:14:09 01/16/2001/18/2021 URINE CULTU RE levofloxacin LEVOFL OXACIN SUSCEP TIBLE susceptib le Not Available [facility] (Centralized Electronic Ordering - All Locations) Patient Can Go To The Location Of Their Choice, 01/18/2021 09:14:09 01/16/2001/18/2021 URINE CULTU RE meropenem MEROPE NEM SUSCEP TIBLE susceptib le Not Available [facility] (Centralized Electronic Ordering - All Locations) Patient Can Go To The Location Of Their Choice, 01/18/2021 09:14:09 01/16/20 21 01/18/2021 URINE CULTU RE nitrofuranto in NITROF URANTO IN SUSCEP TIBLE susceptib le Not Available [facility] (Centralized Electronic Ordering - All Locations) Patient Can Go To The Location Of Their Choice, [id number] 01/18/2021 09:14:09 01/16/20 21 01/18/2021 URINE CULTU RE piperacillin /tazobactam PIPERA CILLIN /TAZOB AC SUSCEP TIBLE susceptib le Not Available [facility] (Centralized Electronic Ordering - All Locations) Patient Can Go To The Location Of Their Choice, [id number] 01/18/2021 09:14:09 01/16/20 21 01/18/2021 URINE CULTU RE trimeth/sulf amethox TRIMET H/SULF AMETHO X SUSCEP TIBLE susceptib le Not Available [facility] (Centralized Electronic Ordering - All Locations) Patient Can Go To The Location Of Their Choice, [id number] 01/18/2021 09:14:09 01/16/2001/18/2021 URINE CULTU RE tetracycline TETRAC YCLINE RESIST ANT resistant Not Available [facility] (Centralized Electronic Ordering - All Locations) Patient Can Go To The Location Of Their Choice, [id number] 01/18/2021 09:14:09 01/16/2001/15/2021 urina lysis , dipst ick Appearance cloudy Not Available [facility] [place] [address] [place], [address], 01/15/2021 09:55:01 01/16/2001/15/2021 urina lysis , dipst ick Color yellow Not Available [facility] [address] [place], [address], 01/15/2021 09:55:01 01/16/2001/15/2021 urina lysis , dipst ick Glucose (ref: neg) ++++ Not Available [facility] [address] [place], [address], 01/15/2021 09:55:01 01/16/20 21 01/15/2021 urina lysis , dipst ick Bilirubin (ref: neg) Neg Not Available [facility] [address] [place], [address], 01/15/2021 09:55:01 01/16/20 21 01/15/2021 urina lysis , dipst ick Ketones (ref: neg) + Not Available [facility] [address] [place], [address], 01/15/2021 09:55:01 01/16/20 21 01/15/2021 urina lysis , dipst ick Specific Weed (ref: 1.003 - 1.035) 1.030 Not Available [facility] [address] [place], [address], 01/15/2021 09:55:01 01/16/20 21 01/15/2021 urina lysis , dipst ick Blood (ref: neg) ++ Not Available [facility] [address], [place], [address], 01/15/2021 09:55:01 01/16/20 21 01/15/2021 urina lysis , dipst ick pH (ref: 5-7) 5.0 Not Available [facility] [address] [place], [address], 01/15/2021 09:55:01 01/16/20 21 01/15/2021 urina lysis , dipst ick Protein (ref: neg) +++ Not Available [facility] [address] [place], [address], 01/15/2021 09:55:01 01/16/20 21 01/15/2021 urina lysis , dipst ick Urobilinogen (ref: 0.2) 0.2 Not Available [facility] [address], [place], [address], 01/15/2021 09:55:01 01/16/20 21 01/15/2021 urina lysis , dipst ick Nitrites (ref: neg) negati ve Not Available [facility] [address] [place], [address], 01/15/2021 09:55:01 01/16/20 21 01/15/2021 urina lysis , dipst ick Leukocytes (ref: neg) + Not Available [facility] [address] [place], [address], 01/15/2021 09:55:01 01/16/20 21 01/15/2021 urina lysis , dipst ick [facility] [address], [place] [address], [id number] Not Available [facility] [address] [place], [address], 01/15/2021 09:55:01 Result Notes None recorded. Problems Name Problem SNOMED Code Status Onset Date Resolution Date Notes Provider Name and Address Organization Details Recorded Time Sarcoido sis 19229959 Active 2018 LISSA BLACKWOOD NP [address] [place], [address], [place] [facility] 13:03:33 Type 2 diabetes mellitus 03537353 Active 2020 SUZETTE COYNE NP [address] [place], [address], [place] [facility] 09:46:27 Operatio n on lumbar spine Completed 202001/15/2021 Removal Reason: fusion SUZETTE COYNE NP [address] [place], [address], [place] [facility] 09:46:52 Chronic cerebrov ascular accident [id number] 87840 Active 2020 SUZETTE COYNE NP [address] [place], [address], [place] [facility] 09:47:22 Carotid endarter ectomy Completed 202001/15/2021 left SUZETTE COYNE NP [address] [place], [address], [place] [facility] 09:47:53 Hyperlip idemia 45676562 Active 2020 SUZETTE COYNE, JOHNATHAN [address], [place], [address], [place] [facility] 09:48:25 Nerve injury 26757704 Active 2020 left foot SUZETTE ROBERTSJOHNATHAN BRANU [address], [place], [address], [place] [facility] 09:53:54 Problem Notes None recorded. Procedures Surgical History Date Name Laterality Status Provider Name and Address Organization Details Recorded Time 022 Medication Review completed Nina Mcdonnell NP [address] [place], [address], [place] [facility] 01/20/2022 13:08:49 021 Cerumen Removal - DH completed Valentina HESS, JOHNATHAN [address] [place], [address], [place] [facility] 01/01/2021 18:36:47 021 Venipuncture - DH completed NOE JONAS [address] [place], [address], [place] [facility] 05/22/2020 14:02:42 021 Venipuncture - DH completed Nicky Krishnamurthy NP [address] [place], [address], [place] [facility] 04/08/2020 15:55:17 021 Venipuncture - DH completed Clarita Buckner NP [address] [place], [address], [place] [facility] 03/13/2020 18:02:45 Appendectomy completed JAQUI DECKER NP [address] [place], [address], [place] [facility] 10/27/2018 13:12:55 Cholecystectomy completed JAQUI DECKER NP [address] [place], [address], [place] [facility] 10/27/2018 13:13:15 exploratory laparotomy completed JAQUI DECKER NP [address], [place], [address], [place] [facility] 10/27/2018 13:13:34 arthroscopic knee operation completed NOE Corona [address], [place], [address], [place] [facility] 02/07/2022 10:08:48 section completed NOE Corona [address], [place], [address], [place] [facility] 02/07/2022 10:09:07 Back Surgery completed NOE Corona [address], [place], [address], [place] [facility] 02/07/2022 10:09:16 Imaging Results None recorded. Procedure Notes None recorded. Medical Equipment None Reported. Allergies Allergen ID Allergen Name Allergen Category Reaction Reaction Severity Criticality Documentation Date Start Date Code Code System Note Provider Name and Address Organization Details Recorded Time 088780 Trulicity medicatio n Not available Not available Not available 06/20/2019 90648 96 RxNorm DAVID MASTERS NP [address] [place], [address], [place] [facility] 0 11:16:57 215179 bupropion Not available Not available Not available Not available 06/20/2019 39738 RxNorm DAVID MASTERS NP [address] [place], [address], [place] [facility] 0 11:17:08 75668 azithromy sean medicatio n Not available Not available Not available 10/03/2018 78003 RxNorm LISSA BLACKWOOD NP [address] [place], [address], [place] [facility] 9 12:56:11 66141 Product containin g penicilli n (product) medicatio n Not available Not available Not available 10/03/2018 70113 8001 SNOMED LISSA BLACKWOOD NP [address], [place], [address], [place] [facility] 9 12:56:17 47061 Substance with sulfonami de structure and antibacte rial mechanism of action (substanc e) medicatio n Not available Not available Not available 10/03/2018 12463 8003 SNOMED LISSA BLACKWOOD , [employer] [address], [place], [address], [place] [facility] 9 12:56:24 06586 morphine medicatio n Not available Not available Not available 10/03/2018 7052 RxNorm LISSA BLACKWOOD , [employer] [address], [place], [address], [place] [facility] 9 12:56:31 04393 Dilaudid medicatio n Not available Not available Not available 10/03/2018 85367 3 RxNorm LISSA BLACKWOOD , [employer] [address], [place], [address], [place] [facility] 9 12:56:36 77881 dulagluti de medicatio n Not available Not available Not available 10/03/2018 74574 91 RxNorm LISSA BLACKWOOD , [employer]ROLE[employer] GEOLOGIST [address], [place], [address], [place] [facility] 9 12:56:48 Medications Name Sig Start Date Stop Date Status Note LastModified by Organization Details LastModified Time buspirone 5 mg tablet TAKE 1 TABLET BY MOUTH 3 TIMES DAILY FOR 360 DAYS. active Not Available Not Available No t Available atorvastati n 80 mg tablet 01/01 completed Not Available Not Available Not Available prednisone 10 mg tablet 40 mg PO administe red on scene. Time administe red: 1446 03/31 completed Not Available Not Available Not Available doxycycline hyclate 100 mg capsule Take 1 capsule twice a day by oral route for 10 days. 10/27 completed Not Available Not Available Not Available albuterol sulfate 2.5 mg/3 mL (0.083 %) solution for nebulizatio n INHALE 3 MLS VIA NEBULIZER EVERY 6 HRS NEEDED FOR SHORTNESS OF BREATH OR WHEEZING 02/07 completed Not Available Not Available Not Available valacyclovi r 1 gram tablet TAKE 2 TABLETS BY MOUTH EVERY 12 HOURS DIRECTED FOR 1 DAY active Not Available Not Available No t Available meloxicam 15 mg tablet 05/22 completed Not Available Not Available Not Available phenazopyri dine 200 mg tablet Take 1 tablet 3 times a day by oral route for 14 days. 03/13 completed Not Available Not Available Not Available ondansetron HCl 4 mg tablet TAKE 1 TABLET BY MOUTH EVERY 8 HOURS NEEDED FOR NAUSEA active Not Available Not Available No t Available prednisone 20 mg tablet Take 2 tablets every day by oral route for 4 days. 03/31 completed Not Available Not Available Not Available sertraline 100 mg tablet TAKE 1 TABLET BY MOUTH EVERY DAY active Not Available Not Available No t Available prednisone 5 mg tablet 03/31 completed Not Available Not Available Not Available methylpredn isolone 4 mg tablet TAKE 1 TABLET BY MOUTH EVERY 8 HOURS active Not Available Not Available No t Available clopidogrel 75 mg tablet 05/22 completed Not Available Not Available Not Available aspirin 81 mg tablet,mariely yed release TAKE 1 TABLET BY MOUTH EVERY DAY 02/07 completed Not Available Not Available Not Available tramadol 50 mg tablet 10/03 completed Not Available Not Available Not Available ketorolac 30 mg/mL (1 mL) injection solution 15 mg IM administe red on scene. Time administe red: 1445 03/31 completed Not Available Not Available Not Available levothyroxi ne 25 mcg tablet 10/03 completed Not Available Not Available Not Available lamotrigine 25 mg tablet 10/03 completed Not Available Not Available Not Available ofloxacin 0.3 % ear drops APPLY 3 DROPS (OTIC (EAR)) 3 TIMES PER DAY FOR 7 DAYS 02/07 completed Not Available Not Available Not Available ondansetron HCl 4 mg/5 mL oral solution TAKE 5 ML BY MOUTH 2 TIMES DAILY NEEDED FOR NAUSEA. 01/20 completed Not Available Not Available Not Available methotrexat e sodium 2.5 mg tablet 02/07 completed Not Available Not Available Not Available phenazopyri dine 100 mg tablet Take 1 tablet 3 times a day by oral route for 3 days. 05/22 completed Not Available Not Available Not Available cephalexin 500 mg capsule 03/13 completed Not Available Not Available Not Available Cipro 500 mg tablet Take 1 tablet every 12 hours by oral route as directed for 7 days. 05/22 completed Not Available Not Available Not Available lidocaine 5 % topical patch APPLY 1 PATCH BY TOPICAL ROUTE ONCE DAILY (MAY WEAR UP TO 12HOURS.) 01/01 completed Not Available Not Available Not Available indomethaci n 25 mg capsule 10/03 completed Not Available Not Available Not Available diclofenac sodium 75 mg tablet,mariely yed release Take 1 tablet twice a day by oral route for 7 days. 03/31 completed Not Available Not Available Not Available cephalexin 500 mg tablet Take 1 tablet every 12 hours by oral route for 7 days. 01/20 completed Not Available Not Available Not Available folic acid 1 mg tablet TAKE 1 TABLET BY MOUTH EVERY DAY active Not Available Not Available No t Available mupirocin 2 % topical ointment APPLY TO AFFECTED AREA 3 TIMES A DAY active Not Available Not Available No t Available ibuprofen 600 mg tablet 10/03 completed Not Available Not Available Not Available Cipro 250 mg tablet Take 1 tablet every 12 hours by oral route for 3 days. 03/13 completed Not Available Not Available Not Available hydroxyzine HCl 10 mg tablet TAKE 1 TABLET BY MOUTH 3 TIMES DAILY NEEDED FOR ITCHING active Not Available Not Available No t Available ondansetron 4 mg disintegrat ing tablet 05/22 completed Not Available Not Available Not Available doxycycline hyclate 100 mg tablet TAKE 1 TABLET BY MOUTH TWICE A DAY DIRECTED FOR 10 DAYS active Not Available Not Available No t Available oxycodone 5 mg tablet 03/13 completed Not Available Not Available Not Available Novolog Mix 70-30 FlexPen U-100 Insulin 100 unit/mL subcutaneou s pen 01/01 completed Not Available Not Available Not Available Novolog Mix 70-30 U-100 Insulin 100 unit/mL subcutaneou s solution active Not Available Not Available N ot Available cyclobenzap rine 5 mg tablet 05/22 completed Not Available Not Available Not Available oxcarbazepi ne 02/07 completed Not Available Not Available Not Available benzonatate 01/01 completed Not Available Not Available Not Available tramadol ER 200 mg tablet,exte nded release 24 hr 10/03 completed Not Available Not Available Not Available Humalog Mix 75-25 KwikPen U-100 insulin 100 unit/mL subcutaneou s pen INJECT 50 UNITS INTO THE SKIN 2 TIMES DAILY. active Not Available Not Available No t Available BD Ultra-Fine Lynnette Pen Needle 32 gauge x 32 10/03 completed Not Available Not Available Not Available Butrans 20 mcg/hour transdermal patch 10/03 completed Not Available Not Available Not Available Azo Urinary Pain Relief 95 mg tablet 95 mg p.o. administe red on scene. Time administe red: 01/20 completed Not Available Not Available Not Available Xtampza ER 9 mg capsule sprinkle 01/01 completed Not Available Not Available Not Available Xtampza ER 13.5 mg capsule sprinkle Take 1 capsule every 12 hours by oral route. active Not Available Not Available No t Available Quick[employer]ue At-Home COVID-19 Test kit USE DIRECTED active Not Available Not Available No t Available Vitals Date Recorded Oxygen saturation Oxygen saturation in Arterial blood by Pulse oximetry Respiratory rate Heart rate Body temperature Systolic And Diastolic Provider Name and Address Organization Details Last Updated DateTime 3 98 % 98 % 18 /min 86 /min 97.8 [degF] 136/74 mm[Hg] Not Available [facility] 3 10:10:01 Date Recorded Oxygen saturation Oxygen saturation in Arterial blood by Pulse oximetry Respiratory rate Heart rate Systolic And Diastolic Provider Name and Address Organization Details Last Updated DateTime 1 99 % 99 % 20 /min 80 /min 126/62 mm[Hg] Not Available [facility] 1 13:13:50 Date Recorded Oxygen saturation Oxygen saturation in Arterial blood by Pulse oximetry Respiratory rate Heart rate Body temperature Systolic And Diastolic Provider Name and Address Organization Details Last Updated DateTime 1 99 % 99 % 18 /min 90 /min 98.2 [degF] 100/60 mm[Hg] Not Available [facility] 1 18:23:35 Date Recorded Oxygen saturation Oxygen saturation in Arterial blood by Pulse oximetry Heart rate Body temperature Respiratory rate Systolic And Diastolic Provider Name and Address Organization Details Last Updated DateTime 1 98 % 98 % 86 /min 98 [degF] 18 /min 162/86 mm[Hg] Not Available [facility] 1 09:57:28 Date Recorded Respiratory rate Oxygen saturation Oxygen saturation in Arterial blood by Pulse oximetry Body temperature Heart rate Systolic And Diastolic Provider Name and Address Organization Details Last Updated DateTime 2 16 /min 95 % 95 % 96.7 [degF] 89 /min 124/80 mm[Hg] Not Available [facility] 2 12:54:36 Social History Question Answer Notes LastModified by [email or web address] Details LastModified Time Tobacco Smoking Status Former Smoker LISSA BLACKWOOD, PETROLEUM GEOLOGIST [address] [place], [address], [place] [facility] 10/03/2018 13:03:48 Do You Have An Advance Directive? No Information not available 10/03/2018 What Is Your Code Status? Full Code Information not available 10/03/2018 Drugs Abused None Information not available 10/03/2018 How Many Days In The Past Year Have You Had A Heavy Drinking Consumption (4+ Female, 5+ Male)? 0 Information not available 10/03/2018 Has The Patient Seen Their PCP In The Past 6 Months? No [email or web address] Information not available 01/20/2022 Marital Status Informatio n not available 10/03/2018 How Many Years Have You Smoked Tobacco? 10 Information not available 01/01/2021 Sex: Unknown Functional Status Question Answer Note LastModified by Organ[employer]at [employer] Details LastModified Time Do you or have you ever used any other forms of tobacco or nicotine? No Information not available 01/01/2021 What is your level of alcohol consumption? Occasional Information not available 01/01/2021 Mental Status None recorded. Family History Relationship Description Onset Age of this Age Resolved Age Notes LastModified by Organization Details LastModified Time Mother Hypertensive disorder [email or web address] Not available 10/03 13:03:44 Medical History Condition Response Diabetes Y Coronary Artery Disease N CHF N Cancer N Stroke N Hypothyroidism N COPD N Asthma N High Cholesterol N Pulmonary Embolism Y Hypertension N A-fib N Kidney Disease N Gynecological HistoryNo gynecological history recorded. Obstetrics History GPAL:G 0 P 0 0 0 0 Past Encounters Encounter ID Performer Location Encounter Start Date Encounter Closed Date Diagnosis/Indication Diagnosis SNOMED-CT Code Diagnosis ICD10 Code Diagnosis IMO Codes Diagnosis Note [id number] LISSA BLACKWOOD NP [facility] [address] [place] [address] 10/03/2018 12:53:09 10/03/2018 18:42:32 Urinary tract infectious disease 33883180 N39.0 [id number] JAQUI DECKER NP [facility] [place] [address] [place] [address] 10/27/2018 13:07:49 10/30/2018 10:59:15 Urinary tract infectious disease 21617782 N39.0 [id number] LISSA BLACKWOOD NP [facility] [address] [place] [address] 01/19/2019 13:15:48 01/22/2019 13:08:55 Urinary tract infectious disease 85847362 N39.0 [id number] NOE ASENCIO [facility] [address] [place] [address] 02/10/2019 14:31:39 02/12/2019 11:30:19 Inflammation of sacroiliac joint 84472543 M46.1 Sarcoidosis 50517667 D86 .9 [id number] LISSA BLACKWOOD NP [facility] [address] [place] [address] 03/31/2019 14:23:50 04/01/2019 22:04:02 Dysuria 20328230 R30.9 Type 2 bailey betes mellitus without complication 579068088 E11.9 [id number] ROSA M VELÁZQUEZ LA [facility] [address] [place] [address] 04/15/2019 16:21:21 04/17/2019 18:26:38 Urinary tract infectious disease 64227298 N39.0 [id number] DAVID MASTERS, PETROLEUM GEOLOGIST [facility] [address] [facility] [place] [address] 06/20/2019 11:15:20 06/21/2019 18:29:19 Dysuria 62532572 R30.9 Urinary tr act infectious disease 82710044 N39.0 Low back pain 399587964 M54.5 [id number] Clarita Shavonne Buckner, PETROLEUM GEOLOGIST [facility] [address] [facility] [place] [address] 12/12/2019 15:03:30 12/13/2019 17:39:44 Urinary tract infectious disease 41497921 N39.0 Overview/H istory: Patient is a 49 year old female with a chief complaint of concerns for UTI due to increased lethargy and the smell of asparagus in her urine for a period of 5 days. She worries that her lethargy and malodorous urine has grown increasing ly worse these last 2 days in particular . Of significan t note, she has had a history of UTI's over the past few years where she has had as many as 4 UTI's; but this past year has had only two. Patient has seen a urologist this past year and was discharged from Urologist service as she has had fewer infections this year. Exam: Patient VSS. No CVA tenderness , now lower abdominal tenderness to palpation. Her urine dipstick evaluation not concerning and initial findings benign. DDx considered , but not limited to:UTI not likely given negative leukocytes and negative nitrates, afebrileMi ld Dehydratio n likely given urine specific gravity and dark color of urinePyelo nephritis not likely given that patient is afebrile, negative CVA, negative urine dipstick Work up/Results :Urine dipstickUr ine culture with reflex sent to lab Plan/Discu ssion: 1. Increase fluids/hyd rate2. Address symptoms; rest, Tylenol or Motrin for comfort per box instructio ns3. We will follow up with urine culture results, no abx at this time as they are not indicated based on exam findings and negative urine dipstick. If culture proves positive, we will prescibe appropriat e antibiotic . Proper Personal Protective Equipment (PPE), including surgical mask with face-shiel d, gloves, gown and shoe covers were donned and doffed appropriat sylvie and all equipment cleaned using approved technique with germicidal disposable wipes prior to and after care of this patient according to [facility] infection prevention protocols. In order to obtain further informatio n and compare any laboratory results/va lues, I have accessed old patient records. This informatio n was pertinent in my medical decision making today. [id number] Clarita Buckner NP SPR - HOME [address] [place] [address] 03/13/2020 16:32:30 03/14/2020 19:02:16 Urinary tract infectious disease 18398448 N39.0 Overview/H istory: Patient is a 49 year old female with a chief complaint of concerns for UTI as she has urgency and foul smelling urine x 2 days. Patient also complains of upper right abdominal pain x 2 weeks when palpating over her liver. Patient does have an appointmen t with her PCP for annual lab work April 2020. Patient did have a Urologist for frequent UTI's in the past, however was discharged from Urology services as she had fewer infections last year. Exam: Patient afebrile. Patient HRR, tachycardi c 102, S1, S2. Moist mucous membranes, no lymphadeno fernando. LSTA bilaterall y, no work of breathing, speaking in full sentences. Abdomen soft, tenderness to palpation upper right quadrant, + bowel sounds x 4 quadrants. No organomega ly. No abdominal masses appreciate d. No rebound tenderness . + CVA tenderness left flank. No suprapubic tenderness . DDx considered , but not limited to: Hyperglyce elizabeth, glucose 452Hyponat remia, SIADH considered , NA+ 130Hepatit is, pain to upper right abdominalP ancreatiti s, upper right abd quadrant painUTI cannot be ruled out, + leukocytes , culture pending Plan: Patient visit resulted in escalation to ED with regards to hyperglyce prema, hyponatrem ia, evaluation of right abdominal upper quadrant pain. Patient refused ambulance transport. Discussed risks of personal transport. Patient is able to reiterate all risks. Her spouse agrees to take her to [facility] ED promptly. Contacted [facility] and gave expect report to staff. Work up/Results :Urine dipstickUr ine culture with reflex sent to labCBC with differenti al, hepatic panel and CRP drawn but discarded as patient visit escalated to ED.ISTAT 8 Proper Personal Protective Equipment (PPE), including surgical mask with face-shiel d, gloves, gown and shoe covers were donned and doffed fredis mercer and all equipment cleaned using approved technique with germicidal disposable wipes prior to and after care of this patient according to [facility]'s infection prevention protocols. In order to obtain further informatio n and compare any laboratory results/va lues, I have accessed old patient records. This informatio n was pertinent in my medical decision making today. Abdominal pain 15442276 R10.9 [id number] Nicky Krishnamurthy NP SPR - HOME [address] [place] [address] 04/08/2020 14:21:37 04/09/2020 18:39:54 Urinary tract infectious disease 74148798 N39.0 Dehydration 87401623 E86 .0 Diabetes mellitus 514076 09 E11.9 [id number] NOE JONAS [facility] [address] [place] [address] 05/22/2020 13:01:20 05/26/2020 22:09:51 Acute low back pain 134564878 M54.5 Low back strain 37985833 1 S39.012A [id number] Valentina HESS NP [facility] - [facility] [address] [place] [address] 01/01/2021 18:09:03 01/07/2021 12:07:01 Abrasion of skin of right ear 9119891958 5303782 S00.411A small abrasion at 6 oclock to right external ear canalrepor ts tick removed this morning by her husbandtic k was on her indoor/out door cat she reports tick was removed whole but would like ear to be evaluated for full removal of foreign bodyshe reports using dorcas on her husbands phone to see inside her ear and noticed yellow Impacted c erumen in right ear [id number] 334042 H61.21 scant cerumen noted to 2 oclock[address]o terra with curette successful lyno traumapati ent tolerated well Tick bite 45964634 W57.X XXA removed intact, not engorged, < 12 hours [id number] SUZETTE COYNE NP [facility] - [facility] [address] [place] [address] 01/15/2021 09:43:40 01/16/2021 23:05:44 Recurrent urinary tract infection 001089204 N39.0 Pending culture Polyp of nasal cavity 73 3709653 J33.0 Follow up with ENT [id number] Nina MarianoEstela PETROLEUM GEOLOGIST [facility] - [facility] [address] [place] [address] 01/20/2022 12:50:25 01/22/2022 11:35:07 Herpes zoster 3482135 B02.9 Pruritic rash 50634204 L 28.2 [id number] NOE Corona [facility] [address] [place] [place] [address] 02/07/2022 10:04:01 02/11/2022 13:41:45 Cellulitis 900787290 L03.90 Paresthesia 34159755 R20 .2 Health Concerns Section Related Observation LastModified by Organization Detai ls LastModified Time None Recorded Concern Status LastModified by Organization Details LastModified Time None Recorded Advance Directives Directive N: Payers Insurance Date Sequence Insurance Name Policy Number Policy Lara Covered Member ID Lara Member ID Guarantor Name 01/18/2019 1 [place]ARE [place]: [employer] [place] Webster Edgar [id number] Nikky Brown nandez 10/02/2018 1 *SELF PAY* Nikky WebsterZach nandez [id number] Nikky WebsterZach nandez 02/10/2019 1 [place] Edgar [id number] Nikky Brown nandez 03/30/2019 1 [place] Nikky Darin Edgar [id number] Nikky WebsterZach nandez 04/09/2020 2 [facility] [id number] Nikky WebsterZach nandez [id number] Nikky Webster- nandez 05/22/2020 2 [place] WebsterZach nandez [id number] Nikky WebsterZach nandez 04/09/2020 1 [place] Nikky Darin-Her nandez [id number] Nikky Darin-Her nandez 05/22/2020 1 [place] [id number] Nikky Darin-Her nandez [id number] Nikky Darin-Her nandez 12/13/2019 2 [place] Nikky Darin-Her nandez [id number] Nikky Darin-Her nandez 04/09/2020 1 [place] [id number] Nikky Darin-Her nandez [id number] Nikky Darin-Her nandez 04/09/2020 2 [place] Nikky Darin-Her nandez [id number] Nikky Darin-Her nandez 12/13/2019 1 [place] Nikky Darin-Her nandez [id number] Nikky Darin-Her nandez 12/13/2019 1 [place] Nikky Hernández [id number] Nikky Darin-Her nandez 04/06/2019 2 [place] Nkiky Darin-Her nandez [id number] Nikky Darin-Her nandez 06/20/2019 2 [place] Carlos Hernández [id number] Nikky Darin-Her nandez 02/06/2022 2 [place] Nikky Darin-Her nandez [id number] Nikky Darin-Her nandez 02/06/2022 1 [place] [id number] Carlos Hernández [id number] Nikky Darin-Her nandez 02/09/2022 2 [place] [id number] Nikky Darin-Her nandez [id number] Nikky Darin-Her nandez 02/06/2022 2 [place] [id number] Nikky Darin-Her nandez [id number] Nikky Darin-Her nandez 04/20/2022 2 [place] [place] [id number] Nikky Hernández [id number] Nikky Darin-Her nandez 02/09/2022 1 [place] [place] [id number] Nikky Hernández [id number] Nikky Darin-Her nandez 05/26/2020 2 [place] [id number] Nikky Darin-Her nandez [id number] Nikky Darin-Her nandez 05/26/2020 1 [place] Nikky Darin-Her nandez [id number] Nikky Darin-Her nandez 01/07/2021 1 [place] [id number] Nikky Darin-Her nandez [id number] Nikky Darin-Her nandez 01/07/2021 2 [place] Nikky Darin-Her nandez [id number] Nikky Darin-Her nandez 02/09/2022 1 [place] [id number] Nikky Darin-Her nandez [id number] Nikky Darin-Her nandez 01/07/2021 1 [place] Nikky Darin-Her nandez [id number] Nikky Darin-Her nandez 01/20/2022 1 [place] [id number] Nikky Darin-Her nandez [id number] Nikky Darin-Her nandez 01/20/2022 2 [place] Nikky Darin-Her nandez [id number] Nikky Darin-Her nandez 12/04/2021 3 [place] Nikky Hernández [id number] Nikky Darin-Her nandez 01/07/2021 2 [place] [id number] Nikky Darin-Her nandez [id number] Nikky Darin-Her nandez 12/12/2019 2 [place] [id number] Carlos Hernández [id number] Nikky Darin-Her nandez Notes Date Note Type Note Provider Name and Address Organization Details Recorded Time 05/22/2020 text/html 50 y/o F with PMHx sig for IDDM, DVT, PE, TIA, sarcoidosis, neuropathy, and charcot syndrome, known to but new to this provider who presents w/ c/o low back pain x3 days. Patient reports gradual onset and worsening of aching warm low back pain across her low back. Denies radiation of pain. Denies injury or fall but does admit to continuous muscle spasms in the same area over the past week that have resolved. Patient is concerned that she may have a kidney infection or something wrong with her kidneys related to her sarcoidosis. Patient does get frequent UTIs and denies dysuria or burning with urination, cloudy or malodorous urine, urinary frequency, difficulty urinating, or hematuria. She does admit to some discomfort when laying down at night and pain is worsened with bilateral back flexion worse on the right. She hydrates well. Recently treated for UTI with Cipro last month. Denies CP, SOB, fever, chills, nausea, vomiting, or new numbness or tingling. 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 NOE JONAS [address] [place], [address], [place] [facility] 05/22/2020 14:03:47 01/01/2021 text/html Chronically ill 50 year old female, who is sitting in wheelchair, with PMH of DM, DVT, sarcoidosis, TIA, known to new to provider, with complaints of right ear pain that she noticed this morning when she woke up and her observed a tick in her right ear with the use of an dorcas on his phone. Tweezers were use to remove tick intact prior to our arrival. Initially the pain was 4/10 but since the removal she has no pain, d/c, loss of hearing. She is looking for further evaluation to ensure entire tick was removed.Pt reports that her cat had ticks on her and they removed them yesterday evening from her head, but the cat sleeps with her at night time. With the pain they looked in there this morning and found tick alive.She denies any headache, fevers, chills, d/c from right ear. Valentina EHSS NP [address], [place], [address], [place] [facility] 01/02/2021 20:43:48 01/15/2021 text/html Patient is 50 year female with PMH of sarcoidosis, CVA, HLD, T2DM, previous spinal surgeries who has been wheelchair bound for 2 years and recurrent UTIs known to [facility] but new to this provider who c/o 1. Cloudy urine for 2 days and noted a light odor of asparagus yesterday. She states she had RSV in December with cough and associated incontinence for which she was wearing peripads. She thinks the pads may have caused an irritation leading to a urine infection again. No pain or burning with urinationNo frequency or urgencyNo abdomen or back painNo nausea or vomitingNo fever or chillsLast UTI several months agoEating and drinking wellNo vaginal discharge or bleedingLMP 2 years ago 2. irritation to left nostril for the past 2 years which heals and then becomes irritated again. Patient would like to have it looked at for recommendation on follow up. Denies any pain, bleeding or injury to area. Denies any change in size or sensation of irritation. SUZETTE COYNE, JOHNATHAN [address], [place], [address], [place] [facility] 01/15/2021 11:08:51 01/20/2022 text/html Patient is a 51 year old female who is known to /new to provider who is wheel chair bound with a PMH including sarcoidosis, T2DM, CVA and recurrent UTIs who is reporting a rash to her upper back/neck with a burning/itchy sensation to L side of face. There is no reports of rash to face or eye pain/involvement. Onset of symptoms 2-3 days ago. Denies any fevers or any other complaints. Nina Mcdonnell NP [address], [place], [address], [place] [facility] 01/20/2022 13:24:05 02/07/2022 text/html 51 y/o female known to new to provider with hx of DM, DVT, TIA, sarcoidosis, neuropathy, anxiety. pt reports about2-3 weeks ago she was dx with shingles left shoulder/ neck and left face. she finished rx valtrex 1 week ago. lesions resolved. pt reports 2 days ago she noticed her right ear lobe is painful and red and warm, oozing at times. no known injury. she also reports tingling feeling by her right nostril and right upper and lower lip. she does have a hx of cold sores but has not seen any lesions. throat today feels scratchy at times. no fever, cp, sob. she also has chronic hx of arthritis and neuropathy reports right arm at times tingles also. denies any weakness, MENA, dizziness, dysarthria. NOE Corona [address], [place], [address], [place] [facility] 02/07/2022 19:49:49 OBGyn Episode No OBEpisode recorded.
--- OUTSIDE RECORDS SUMMARY | 2024-12-13 13:45 | XMS_ITS | Encounter Summary ---
Author Organization [facility] Address [address] [place] [address] Care Team Providers Care Detonator Maker Name Role Phone Gina Hahn MD Primary Care Provider [phone] Encounter Details Date Type Department Care Team (Late st Contact Info) Description 02/07/2024 Referral Triage [facility] [address] [place] [address] Kiya Salguero Social History Tobacco [...] as of this encounter Plan of Treatment Upcoming Encounters Date Type Department Care Team (Late st Contact Info) Description 01/08/2025 10:30 AM EST Consult Internal Medicine - [place] [address] [phone] Gina Hahn MD [address] [place] [phone] documented as of this encounter Visit Diagnoses Not on filedocumented in this encounter Care Teams Detonator Maker Relationship Specialty Start Date End Date Gina Hahn MD [address] [phone] PCP - General Internal Medicine 08/25/16 documented as of this encounter
--- OUTSIDE RECORDS SUMMARY | 2024-12-13 13:45 | XMS_ITS | Encounter Summary ---
Author Organization [facility] Address [address] [place] [address] Care Team Providers Care Fire Control Technician Name Role Phone Gina Hahn MD Primary Care Provider [phone] Reason for Visit * Reason Onset Date Comments Pre-op Exam 12/10/2024 Encounter Details Date Type Department Care Team ([facility] st Contact Info) Description 12/10/2024 Telephone Internal Medicine - [address] [place] [address] Gina Hahn MD [address] [place] [phone] Social History Tobacco Use Types Packs/Day Years [...] care for your loved ones. For example, children teacher or elderly care for an older adult? [...] on file documented as of this encounter Progress Notes * Akua Perdomo - 12/10/2024 1:40 PM EST Pre op appt booked with pt over the phone * Pia Lynn - 12/10/2024 12:48 PM EST Pt needs a Pre-Op apt. Date of surgery is 01/14/25. Is having retinal left eye surgery. She does notremember the doctors's name. Location will be [address] Call back [phone] documented in this encounter Plan of Treatment Upcoming Encounters Date Type Department Care Team (Late st Contact Info) Description 01/08/2025 10:30 AM EST Consult Internal Medicine - [place] 175 [facility] [address] [place] [phone] Gina Hahn MD [address] [place] [phone] documented as of this encounter Visit Diagnoses Not on filedocumented in this encounter Additional Health Concerns Assessment Noted Time PHQ-9 Depression Total Score: 17 025 2:06 PM EST documented as of this encounter Care Teams Fire Control Technician Relationship Specialty Start Date End Date Gina Hahn MD 175 [facility] [address] [place] [phone] PCP - General Internal Medicine 08/25/16 documented as of this encounter
--- OUTSIDE RECORDS SUMMARY | 2024-12-13 13:45 | XMS_ITS | Encounter Summary ---
Author Organization [facility] Address [address] [place] [address] Care Team Providers Care Under Presser Name Role Phone Gina Hahn MD Primary Care Provider [phone] Reason for Referral * Consultation (Routine) - Closed Specialty Diagnoses / Procedures Referred By Lopez guerra Referred To Contact Nephrology Diagnoses Stage 4 chronic kidney disease (CMS/HCC V24, CMS/HCC V28) Gina Hahn MD 175 [facility] [address] [place] [address] Phone: tel: fax: [facility] [address] [facility] [address] [place] [address] Phone: tel: fax: Referral ID Status Reason Start Date Expiration Date V isits Requested Visits Authorized [id number] Closed Specialty Services Required 11/17/2024 11/17/2025 1 1 Encounter Details Date Type Department Care Team (Late st Contact Info) Description 11/16/2024 Results Follow-Up Internal Medicine - [place] 175 [facility] [address] [place] [address] Gina Hahn MD [address] [place] [address] Social History Tobacco Use Types Packs/Day Years [...] for your loved ones. For example, child development associate teacher or elderly care for an older [...] Upcoming Encounters Date Type Department Care Team ([facility] st Contact Info) Description 01/08/2025 10:30 AM EST Consult Internal Medicine - [place] 175 [facility] [address] [place] [phone] Gina Hahn MD [address] [place] [phone] Scheduled Referrals Name Type Priority Associated Diagnoses Order Schedule Ambulatory referral to Nephrology Outpatient Referral Routine Stage 4 chronic kidney disease (CMS/HCC V24, CMS/HCC V28) 1 Occurrences starting 11/17/2024 until 11/17/2025 documented as of this encounter Visit Diagnoses Diagnosis Stage 4 chronic kidney disease (CMS/HCC V24, CMS/HCC V28)- Primary documented in this encounter Additional Health Concerns Assessment Noted Time PHQ-9 Depression Total Score: 17 025 2:06 PM EST documented as of this encounter Care Teams Under Presser Relationship Specialty Start Date End Date Gina Hahn MD 175 [facility] [address] [place] [phone] PCP - General Internal Medicine 08/25/16 documented as of this encounter
--- OUTSIDE RECORDS SUMMARY | 2024-12-13 13:45 | XMS_ITS | Encounter Summary ---
Author Organization [facility] Address [address] [place] [address] Care Team Providers Care Veneer Sander Name Role Phone Gina Hahn MD Primary Care Provider [phone] Encounter Details Date Type Department Care Team ([facility] st Contact Info) Description 11/16/2024 Telephone Internal Medicine - [address] [place] [address] Gina Hahn MD [address] [place] [address] Social History Tobacco Use Types [...] your loved ones. For example, child nutrition assistant or elderly care for an older adult? [...] as of this encounter Progress Notes * Anand Davis MA - 11/16/2024 3:44 PM EDT Called pt spoke with pt not on vr and let her a message to return call regarding x-ray results. X-ray looks fine, pain could be musculoskeletal, asked her to take Tylenol as needed * Niyah Vásquez - 11/16/2024 2:03 PM EDT Patient called and requested a call back with the results of her x-ray. Cb# [phone] documented in this encounter Plan of Treatment Upcoming Encounters Date Type Department Care Team (Late st Contact Info) Description 01/08/2025 10:30 AM EST Consult Internal Medicine - [place] [address] [place] [phone] Gina Hahn MD [address] [place] [phone] documented as of this encounter Visit Diagnoses Not on filedocumented in this encounter Additional Health Concerns Assessment Noted Time PHQ-9 Depression Total Score: 17 025 2:06 PM EST documented as of this encounter Care Teams Veneer Sander Relationship Specialty Start Date End Date Gina Hahn MD [address] [facility] [address] [place] [phone] PCP - General Internal Medicine 08/25/16 documented as of this encounter
--- OUTSIDE RECORDS SUMMARY | 2024-12-13 13:45 | XMS_ITS | Clinical Summary ---
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 14 each 5 11/22/19 25 Active Problems Problem Noted Date Diagnosed Date Wheelchair dependent 05/17/2024 Lumbar radiculopathy 05/17/2024 Herniated lumbar intervertebral disc 05/17/2024 Abnormal LFTs 02/07/2024 Anxiety and depression 02/07/2024 Constipation 02/07/2024 CVA (cerebral vascular accident) ([facility] V24, C [facility] V28) 02/07/2024 Vertigo 02/06/2024 Type 2 diabetes mellitus, wi th long-term current use of insulin ([facility] V24, [facility] V28) 02/06/2024 Cerebrovascular accident (CV A) due to thrombosis of right posterior cerebral artery ([facility] V24, [facility] V28) 02/06/2024 Mixed hyperlipidemia 02/06/2024 HTN (hypertension), benign 02/06/2024 Sarcoidosis 02/06/2024 Nasal polyp 02/05/2021 Nose pain 02/05/2021 Nerve injury 01/15/2021 Overview (05/17/2024): left foot Diabetic polyneuropathy asso ciated with type 2 diabetes mellitus ([facility] V24, [facility] V28) 04/10/2019 Microalbuminuria 01/12/2018 Bone fracture 10/18/2017 Pulmonary nodules 10/18/2017 Sarcoid 10/18/2017 Ankle fracture, right 10/14/2017 Elevated TSH 10/14/2017 Vitamin D deficiency 10/14/2017 Hypertension 09/15/2017 Type 2 diabetes mellitus wit h renal manifestations ([facility] V24, [facility] V28) 09/05/2017 Blepharitis 08/18/2017 Phlebitis 08/18/2017 Anemia 06/27/2017 Syncope 06/27/2017 Pedal edema 05/27/2017 Facial numbness 04/06/2017 Insomnia 11/11/2016 Vitamin B12 deficiency 09/15/2015 Lumbar spinal stenosis 07/30/2014 Chronic lower back pain 06/03/2014 Hidradenitis suppurativa 06/03/2014 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 Encounters Date Type Department Care Team Description 12/10/2024 Telephone Internal Medicine [facility] [address] [address] Gina Hahn MD 11/16/2024 11:32 AM EDT - 11/16/2024 11:59 PM EDT Hospital Encounter [facility] Xray [address] [place] [id number] Right loin pain Discharge Disposition: Home or Self Care 11/16/2024 10:15 AM EDT Office Visit Internal Medicine [facility] [address] [phone] Gina Hahn MD Right loin pain (Primary Dx); Type 2 diabetes mellitus without complication, with long-term current use of insulin ([facility] V24, CMS/HCC V28); Cerebrovascular accident (CVA) due to thrombosis of right posterior cerebral artery ([facility] V24, CMS/[facility] V28) 11/16/2024 [place] [facility] [address] [address] Gina Hahn MD 11/16/2024 Results Follow-Up Internal Medicine [facility] [address] [phone] Gina Hahn MD 11/14/2024 [place] [facility] [address] [phone] Gina Hahn MD 10/23/2024 [place] [facility] [address] [phone] Gina Hahn MD 10/05/2024 Telephone Internal Medicine [facility] [address] [address] Gina Hahn MD 09/25/2024 Telephone Internal Medicine - [place] 175 [facility] [address] [place] [address] Gina Hahn MD 09/20/2024 10:30 AM EDT Consult Internal Medicine - [place] 175 [facility] [address] [place] [address] Gina Hahn MD Pre-op examination (Primary Dx); Type 2 diabetes mellitus with other circulatory complication, with long-term current use of insulin (CMS/HCC V24, CMS/[facility] V28); HTN (hypertension), benign; Mixed hyperlipidemia; Vitamin D deficiency; Vertigo; Right sided numbness; Urinary tract infection without hematuria, site unspecified from Last 3 Months Surgical History Surgery Date Site/Laterality Comments CAROTID ENDARTERECTOMY 09/2018 Left PROCEDURE: HISTORICAL CAROTID ENDART; COMMENT: Dr. [facility] Medical History Medical History Date Comments [...] 2 diabetes mellitus wit h renal manifestations (CMS/HCC V24, CMS/[facility] V28) 09/05/2017 DX:Type 2 diabetes mellitus with renal manifestations (HCC) Facial numbness 04/06/2017 DX:Facial numbne ss Hidradenitis suppurativa 06/03/2014 DX:Hidr adenitis suppurativa Lumbar spinal stenosis 07/30/2014 DX:Lumbar spinal stenosis 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 DX:Mese nteric lymphadenitis Phlebitis 08/18/2017 DX:Phlebitis History of shingles 11/16/2016 DX:History o f shingles Syncope 06/27/2017 DX:Syncope Microalbuminuria 01/12/2018 DX:Microalbumin uria Anxiety and depression DX:Anxiet y and depression CVA (cerebral vascular accid ent) ([facility] V24, [facility] V28) DX:CVA (cerebral vascular a ccident) ([facility]) Sarcoidosis DX:Sarcoidosis Constipation DX:Constipation Abnormal LFTs DX:Abnormal [...] for your loved ones. For example, child and family services specialist or elderly care for an older adult? [...] Sign Reading Time Taken Comments Blood Pressure 108/52 11/16/2024 10:25 AM EDT Pulse 73 11/16/2024 10:25 AM EDT Temperature 36.3 C (97.3 F) 11/16/2024 10:25 AM EDT Respiratory Rate 20 11/16/2024 10:25 AM EDT Oxygen Saturation 99% 11/16/2024 10:25 AM EDT Inhaled Oxygen Concentration - - Weight 89.8 kg (198 lb) 11/16/2024 10:25 AM EDT Height 172.7 cm (5' 8 ) 11/16/2024 10:25 AM EDT Body Mass Index 30.11 11/16/2024 10:25 AM EDT Plan of Treatment Upcoming Encounters Date Type Department Care Team (Late st Contact Info) Description 01/08/2025 10:30 AM EST Consult Internal Medicine - [address] [place] [address] Gina Hahn MD [address] [place] [address] Health Maintenance Due Date Last Done Comments Breast Cancer Screening 1970 Colorectal Cancer Screening: Colonoscopy 1970 Diabetes: Annual Foot Exam 1980 DTaP,Tdap,and Td Vaccines (1 - Tdap) 1989 Hepatitis B Vaccines (1 of 3 - 19+ 3-dose series) 1989 Pneumococcal Vaccine: 50+ Years (1 of 2 - PCV) 1989 Cervical Cancer Screening: P ap Smear 1991 RSV Immunization Adult Patients (1 - Risk 50-74 years 1-dose series) 2020 Zoster Vaccines (1 of 2) 2020 HIV Screening 01/10/2022 Medicare Annual Wellness Visit 05/07/2023 05/06/2022 Diabetes: Annual Retina Eye Exam 02/26/2024 02/25/2023 COVID-19 Vaccine (1 - 2023-2 5 season) 2024 Influenza Vaccine (#1) 2024 Diabetes: Blood Sugar Contro l Test (HGBA1C) 03/23/2025 09/20/2024, 10/07/2022 Social Influencers of Health Screening 03/30/2025 03/30/2024 Diabetes: Annual Urine Albumin-Creatinine Ratio (uACR) 09/20/2025 09/20/2024, 12/21/2004 Diabetes: Annual GFR (Glomerular Filtration Rate) 11/16/2025 11/16/2024, 09/20/2024, 05/10/2022 Hypertension/CHF/CAD Annual BMP Blood Test 11/16/2025 11/16/2024, 09/20/2024, 05/10/2022 Cholesterol Screening (Lipid Panel) 09/20/2029 09/20/2024, 05/10/2022 Hepatitis C Screening Completed 05/19/2020 Depression Screening [...] Procedure Name Priority Date/Time Associated Diagnosis Comments XR ABDOMEN 2 VIEWS Routine 11/16/2024 11 :53 AM EDT Right loin pain [place]O URINE CULTURE TUBE Routine 11/16/2024 10:58 AM EDT Diabetes mellitus (CMS/HCC V24, CMS/HCC V28) Cerebral infarction due to thrombosis of right posterior cerebral artery (CMS/HCC V24, CMS/HCC V28) Lumbago URINALYSIS WITH REFLEX MICROSCOPIC AND CULTURE Routine 11/16/2024 10:58 AM EDT Diabetes mellitus (CMS/HCC V24, CMS/HCC V28) Cerebral infarction due to thrombosis of right posterior cerebral artery (CMS/HCC V24, CMS/HCC V28) Lumbago CBC WITH AUTO DIFFERENTIAL Routine 11/16/2024 10:58 AM EDT Right loin pain Type 2 diabetes mellitus without complication, with long-term current use of insulin (CMS/HCC V24, CMS/HCC V28) Cerebrovascular accident (CVA) due to thrombosis of right posterior cerebral artery (CMS/HCC V24, CMS/HCC V28) URINALYSIS WITH REFLEX MICROSCOPIC AND CULTURE Routine 11/16/2024 10:58 AM EDT Diabetes mellitus (CMS/HCC V24, CMS/HCC V28) Cerebral infarction due to thrombosis of right posterior cerebral artery (CMS/HCC V24, CMS/HCC V28) Lumbago CBC AND DIFFERENTIAL Routine 11/16/2024 10:58 AM EDT Right loin pain Type 2 diabetes mellitus without complication, with long-term current use of insulin (CMS/HCC V24, CMS/HCC V28) Cerebrovascular accident (CVA) due to thrombosis of right posterior cerebral artery (CMS/HCC V24, CMS/HCC V28) SEDIMENTATION RATE Routine 11/16/2024 10 :58 AM EDT Right loin pain Type 2 diabetes mellitus without complication, with long-term current use of insulin (CMS/HCC V24, CMS/HCC V28) Cerebrovascular accident (CVA) due to thrombosis of right posterior cerebral artery (CMS/HCC V24, CMS/HCC V28) BASIC METABOLIC PANEL Routine 11/16/2024 10:58 AM EDT Right loin pain Type 2 diabetes mellitus without complication, with long-term current use of insulin (CMS/HCC V24, CMS/HCC V28) Cerebrovascular accident (CVA) due to thrombosis of right posterior cerebral artery (CMS/HCC V24, CMS/HCC V28) CULTURE URINE Routine 11/16/2024 10:58 AM EDT Diabetes mellitus (CMS/HCC V24, CMS/HCC V28) Cerebral infarction due to thrombosis of right posterior cerebral artery (CMS/HCC V24, CMS/HCC V28) Lumbago MAGNESIUM Routine 09/20/2024 11:27 AM EDT Type 2 diabetes mellitus with other circulatory complication, with long-term current use of insulin (CMS/HCC V24, CMS/HCC V28) HTN (hypertension), benign Mixed hyperlipidemia Vitamin D deficiency Vertigo Right sided numbness MICROALBUMIN CREATININE URINE RATIO Routine 09/20/2024 11:27 AM EDT Type 2 diabetes mellitus with other circulatory complication, with long-term current use of insulin (CMS/HCC V24, CMS/HCC V28) HTN (hypertension), benign Mixed hyperlipidemia Vitamin D deficiency Vertigo VITAMIN D 25 HYDROXY Routine 09/20/2024 11:27 AM EDT Type 2 diabetes mellitus with other circulatory complication, with long-term current use of insulin ([facility] V24, CMS/[facility] V28) HTN (hypertension), benign Mixed hyperlipidemia Vitamin D deficiency Vertigo VITAMIN B12 Routine 09/20/2024 11:27 AM EDT Type 2 diabetes mellitus with other circulatory complication, with long-term current use of insulin ([facility] V24, CMS/[facility] V28) HTN (hypertension), benign Mixed hyperlipidemia Vitamin D deficiency Vertigo THYROID STIMULATING HORMONE Routine 09/20/2024 11:27 AM EDT Type 2 diabetes mellitus with other circulatory complication, with long-term current use of insulin ([facility] V24, [facility] V28) HTN (hypertension), benign Mixed hyperlipidemia Vitamin D deficiency Vertigo COMPLETE BLOOD COUNT Routine 09/20/2024 11:27 AM EDT Type 2 diabetes mellitus with other circulatory complication, with long-term current use of insulin ([facility] V24, [facility] V28) HTN (hypertension), benign Mixed hyperlipidemia Vitamin D deficiency Vertigo LIPID PANEL WITH REFLEX TO DIRECT LDL Routine 09/20/2024 11:27 AM EDT Type 2 diabetes mellitus with other circulatory complication, with long-term current use of insulin ([facility] V24, CMS/[facility] V28) HTN (hypertension), benign Mixed hyperlipidemia Vitamin D deficiency Vertigo COMPREHENSIVE METABOLIC PANEL Routine 09/20/2024 11:27 AM EDT Type 2 diabetes mellitus with other circulatory complication, with long-term current use of insulin ([facility] V24, CMS/[facility] V28) HTN (hypertension), benign Mixed hyperlipidemia Vitamin D deficiency Vertigo HEMOGLOBIN A1C Routine 09/20/2024 11:27 AM EDT Type 2 diabetes mellitus with other circulatory complication, with long-term current use of insulin ([facility] V24, CMS/[facility] V28) HTN (hypertension), benign Mixed hyperlipidemia Vitamin D deficiency Vertigo CULTURE URINE Routine 09/20/2024 11:22 AM EDT Urinary tract infection without hematuria, site unspecified DIABETES EYE EXAM Routine 02/25/2023 HEPATITIS C SCREENING Routine 05/19/2020 from Last 3 Months or Most Recently Relevant to Health Maintenance Results * XR Abdomen 2 Views (11/16/2024 11:53 AM EDT) Anatomical Region Laterality Modality Body Radiographic Amberly ging 11/16/2024 12:1 0 PM EDT Impressions 11/16/2024 12:11 PM EDT Nonobstructive bowel gas pattern. No radiopaque calculus is seen. If clinical concern for renal calculus persists, further evaluation with ultrasound should be considered. Code 47978 -------- FINAL REPORT -------- Dictated By: Francois Mendieta Dictated Date: 11/16/2024 12:10 ET Assigned Physician: Francois Mendieta Reviewed and Electronically Signed By: Francois Mendieta Signed Date: 11/16/2024 12:11 ET Workstation ID: [id number] Transcribed By: Self Edit Transcribed Date: 11/16/2024 12:10 ET Narrative 11/16/2024 12:11 PM EDT HISTORY: The patient is a 54-year-old female with pain in the right inguinal region. Evaluation for a renal calculus is requested. FINDINGS: Supine radiographs of the abdomen demonstrate cholecystectomy clips. The patient is seen to have undergone previous posterior fusion with placement of disc prostheses at the L4-5 and L5-S1 levels. The bowel gas pattern is nonobstructive. The volume of fecal material is not unusually increased. No mass or radiopaque calculus is seen. Vascular calcifications are noted. Procedure Note Francois Mendieta MD - 11/16/2024 HISTORY: The patient is a 54-year-old female with pain in the rightinguinal region. Evaluation for a renal calculus is requested. FINDINGS: Supine radiographs of the abdomen demonstrate cholecystectomyclips. The patient is seen to have undergone previous posterior fusionwith placement of disc prostheses at the L4-5 and L5-S1 levels. The bowelgas pattern is nonobstructive. The volume of fecal material is notunusually increased. No mass or radiopaque calculus is seen. Vascularcalcifications are noted. IMPRESSION: Nonobstructive bowel gas pattern. No radiopaque calculus is seen. If clinical concern for renal calculus persists, further evaluation withultrasound should be considered. Code 65361 -------- FINAL REPORT -------- Dictated By: Francois Mendieta Dictated Date: 11/16/2024 12:10 ET Assigned Physician: Francois Mendieta Reviewed and Electronically Signed By: Francois Mendieta Signed Date: 11/16/2024 12:11 ET Workstation ID: [id number] Transcribed By: Self Edit Transcribed Date: 11/16/2024 12:10 ET Gina Hahn MD IMG XR PROCEDURES Final Result * (ABNORMAL) Urinalysis with reflex microscopic and culture (11/16/2024 10:58 AM EDT) Specific [place] Urine >=1.030 1.003 - 1.030 LAB URINALYSIS - AUTOMATED METHOD 11/16/2024 2:20 PM [facility] pH, Urine 5.5 5.0 - 8.0 pH LAB URINALYSIS - AUTOMATED METHOD 11/16/2024 2:20 PM [facility] Leukocytes, Urine Small(A) Negative LAB URINALYSIS - AUTOMATED METHOD 11/16/2024 2:20 PM [facility] Nitrite, Urine Negative Negative LAB URINALYSIS - AUTOMATED METHOD 11/16/2024 2:20 PM [facility] Protein, Urine >=300(A) <=Trace mg/dL LAB URINALYSIS - AUTOMATED METHOD 11/16/2024 2:20 PM [facility] Glucose, Urine 250(A) Negative mg/dL LAB URINALYSIS - AUTOMATED METHOD 11/16/2024 2:20 PM [facility] Ketones, Urine 15(A) Negative mg/dL LAB URINALYSIS - AUTOMATED METHOD 11/16/2024 2:20 PM EDT [facility] Urobilinogen, Urine 1.0 0.2 - 1.0 mg/dL LAB URINALYSIS - AUTOMATED METHOD 11/16/2024 2:20 PM EDT [facility] Bilirubin, Urine Small(A) Negative LAB URINALYSIS - AUTOMATED METHOD 11/16/2024 2:20 PM EDT [facility] Blood, Urine Trace(A) Negative LAB URINALYSIS - AUTOMATED METHOD 11/16/2024 2:20 PM EDT [facility] RBC, Urine 7.0(H) 0 - 4 /HPF 11/16/2024 2:20 PM EDT [facility] WBC, Urine 40(H) 0 - 4 /HPF 11/16/2024 2:20 PM [facility] Squamous Epithelial, Urine >100(H) 0 - 60 /LPF 11/16/2024 2:20 PM T [facility] Bacteria, Urine Few(A) Negative /HPF 11/16/2024 2:20 PM [facility] Hyaline Casts, Urine 0 0 - 3 /LPF 11/16/2024 2:20 PM [facility] Urine Urine specimen obtained by clean catch procedure / Unknown Non-blood Collection / Unknown 11/16/2024 10:58 AM EDT 11/16/2024 10:59 AM EDT us Gina Hahn MD LAB URINE ORDERABLES Final Res ult [facility] [address] [place] [address], * Regalado urine culture tube (11/16/2024 10:58 AM EDT) Extra Tube Hold for add-ons. 11/16/2024 4:01 PM EDT [facility] Comment:Auto resulted. Urine Urine specimen obtained by clean catch procedure / Unknown Non-blood Collection / Unknown 11/16/2024 10:58 AM EDT 11/16/2024 10:59 AM EDT us Gina Hahn MD LAB URINE ORDERABLES Final Res ult [facility] [address] [place] [address], * (ABNORMAL) CBC auto differential (11/16/2024 10:58 AM EDT) WBC 9.8 4.8 - 10.8 K/mcL LAB HEMETOLOGY METHOD 11/16/2024 1:52 PM EDT [facility] RBC 4.70 3.80 - 4.80 M/mcL LAB HEMETOLOGY METHOD 11/16/2024 1:52 PM EDT [facility] Hemoglobin 12.1 11.5 - 16.0 g/dL LAB HEMETOLOGY METHOD 11/16/2024 1:52 PM EDT [facility] Hematocrit 39.5 35.0 - 47.0 % LAB HEMETOLOGY METHOD 11/16/2024 1:52 PM [facility] MCV 83.3 79.0 - 98.0 FL LAB HEMETOLOGY METHOD 11/16/2024 1:52 PM EDT [facility] MCH 25.5(L) 27.0 - 32.0 pcg LAB HEMETOLOGY METHOD 11/16/2024 1:52 PM [facility] MCHC 30.6(L) 32.0 - 37.0 g/dL LAB HEMETOLOGY METHOD 11/16[facility]2024 1:[facility] RDW 14.9 11.0 - 15.0 % LAB HEMETOLOGY METHOD 11/16/2024 1:52 PM [facility] Platelets 340 130 - 400 K/mcL LAB HEMETOLOGY METHOD 11/16/2024 1:52 PM [facility] MPV 10.7 7.0 - 11.0 FL LAB HEMETOLOGY METHOD 11/16/2024 1:52 PM [facility] NRBC 0.0 <1.0 % LAB HEMETOLOGY METHOD 11/16/2024 1:52 PM [facility] NRBC Absolute 0.00 <0.10 K/mcL LAB HEMETOLOGY METHOD 11/16/2024 1:52 PM [facility] Neutrophils Relative 64.0 % LAB HEMETOLOGY METHOD 11/16/2024 1:52 PM [facility] Lymphocytes Relative 23.1 % LAB HEMETOLOGY METHOD 11/16/2024 1:52 PM [facility] Monocytes Relative 8.1 % LAB HEMETOLOGY METHOD 11/16/2024 1:52 PM [facility] Eosinophils Relative 3.8 % LAB HEMETOLOGY METHOD 11/16/2024 1:52 PM [facility] Basophils Relative 0.6 % LAB HEMETOLOGY METHOD 11/16/2024 1:52 PM [facility] Immature Granulocytes Relative 0.4 % LAB HEMETOLOGY METHOD 11/16/2024 1:52 PM [facility] Neutrophils Absolute 6.28 1.50 - 7.00 K/mcL LAB HEMETOLOGY METHOD 11/16/2024 1:52 PM [facility] Lymphocytes Absolute 2.27 1.00 - 5.00 K/mcL LAB HEMETOLOGY METHOD 11/16/2024 1:52 PM [facility] Monocytes Absolute 0.79 0.20 - 1.00 K/mcL LAB HEMETOLOGY METHOD 11/16/2024 1:52 PM EDT [facility] Eosinophils Absolute 0.37 0.00 - 0.50 K/mcL LAB HEMETOLOGY METHOD 11/16/2024 1:52 PM EDT [facility] Basophils Absolute 0.06 0.00 - 0.20 K/[facility] LAB HEMETOLOGY METHOD 11/16/2024 1:52 PM EDT [facility] Immature Granulocytes Absolute 0.04(H) 0.00 - 0.03 K/[facility] LAB HEMETOLOGY METHOD 11/16/2024 1:52 PM EDT [facility] Blood Venous blood specimen / Unknown Venipuncture / Unknown 11/16/2024 10:58 AM EDT 11/16/2024 10:59 AM EDT us Gina Hahn MD LAB BLOOD ORDERABLES Final Res ult Performing Organization Address City/[facility]/ZIP Co de Phone Number [facility] [address] [place] [address], [place] [phone] * (ABNORMAL) Sedimentation rate (11/16/2024 10:58 AM EDT) Sed Rate 44(H) 0 - 30 mm/hr LAB HEMETOLOGY METHOD 11/16/2024 1:59 PM EDT [facility] Blood Venous blood specimen / Unknown Venipuncture / Unknown 11/16/2024 10:58 AM EDT 11/16/2024 10:59 AM EDT us Gina Hahn MD LAB BLOOD ORDERABLES Final Res ult [facility] [address] [place] [address], [place] [phone] * Culture urine (11/16/2024 10:58 AM EDT) Only the most recent of2 resultswithin the time period is included. Culture, Urine <10,000 cfu/mL Mixed bacterial ralph 11/17/2024 11:11 AM EDT [facility] Urine Urine specimen obtained by clean catch procedure / Unknown Non-blood Collection / Unknown 11/16/2024 10:58 AM EDT 11/16/2024 2:20 PM EDT Gina Hahn MD LAB MICROBIOLOGY - GENERAL ORD ERABLES Final Result [facility] [address] [place] [address], [place] [phone] * (ABNORMAL) Basic metabolic panel (11/16/2024 10:58 AM EDT) [facility] Sodium 133 133 - 145 mmol/L LAB CHEMISTRY METHOD 11/16/2024 2:24 PM [facility] Potassium 4.8 3.5 - 5.5 mmol/L LAB CHEMISTRY METHOD 11/16/2024 2:24 PM [facility] Chloride 98 96 - 110 mmol/L LAB CHEMISTRY METHOD 11/16/2024 2:24 PM [facility] CO2 26 21 - 32 mmol/L LAB CHEMISTRY METHOD 11/16/2024 2:24 PM [facility] Anion Gap 9 3 - 11 LAB CHEMISTRY METHOD 11/16/2024 2:24 PM [facility] Glucose 164(H) 70 - 100 mg/dL LAB CHEMISTRY METHOD 11/16/2024 2:24 PM [facility] BUN 28(H) 5 - 25 mg/dL LAB CHEMISTRY METHOD 11/16/2024 2:24 PM [facility] Creatinine 2.01(H) 0.50 - 1.10 mg/dL LAB CHEMISTRY METHOD 11/16/2024 2:24 PM [facility] eGFR 29(L) >=60 mL/min/1. 73m2 LAB CHEMISTRY METHOD 11/16/2024 2:24 PM EDT [facility] Comment:Calculation based on the Chronic Kidney Disease Epidemiology Collaboration (CKD-EPI) equation refit without adjustment for race. BUN/Creatinine Ratio 13.9 LAB CHEMISTRY METHOD 11/16/2024 2:24 PM EDT [facility] Calcium 9.7 8.5 - 10.5 mg/dL LAB CHEMISTRY METHOD 11/16/2024 2:24 PM EDT [facility] Blood Venous blood specimen / Unknown Venipuncture / Unknown 11/16/2024 10:58 AM EDT 11/16/2024 10:59 AM EDT us Gina Hahn MD LAB BLOOD ORDERABLES Final Res ult [facility] [address] [place] [address], [place] [phone] * (ABNORMAL) Lipid panel with reflex to direct LDL (09/20/2024 11:27 AM EDT) Cholesterol 179 0 - 200 mg/dL LAB CHEMISTRY METHOD 09/20/2024 4:16 PM EDT [facility] Triglycerides 182(H) 0 - 150 mg/dL LAB CHEMISTRY METHOD 09/20/2024 4:16 PM EDT [facility] HDL 52 >=40 mg/dL LAB CHEMISTRY METHOD 09/20/2024 4:16 PM EDT [facility] LDL Calculated 91 0 - 100 mg/dL LAB CHEMISTRY METHOD 09/20/2024 4:16 PM EDT [facility] Comment:Estimated LDL Calcul ated using equation: Total cholesterol - HDL cholesterol - (Triglycerides/5) VLDL Cholesterol Xander 36.4 mg/dL LAB CHEMISTRY METHOD 09/20/2024 4:16 PM EDT [facility] Non HDL Chol. (LDL+VLDL) 127 <145 mg/dL LAB CHEMISTRY METHOD 09/20/2024 4:16 PM EDT [facility] Chol/HDL Ratio 3.4 0.0 - 4.4 LAB CHEMISTRY METHOD 09/20/2024 4:16 PM EDT [facility] Blood Venous blood specimen / Unknown Venipuncture / Unknown 09/20/2024 11:27 AM EDT 09/20/2024 11:27 AM EDT us Gina Hahn MD LAB BLOOD ORDERABLES Final Res ult Performing Organization Address City/[facility]/ZIP Co de Phone Number [facility] [address] [place] [address], [place] [phone] * (ABNORMAL) Microalbumin creatinine urine ratio (09/20/2024 11:27 AM EDT) Creatinine, Urine 218.0 mg/dL LAB CHEMISTRY METHOD 09/20/2024 4:26 PM EDT [facility] Microalb, Ur 3,400.0(H ) 0.0 - 29.0 mg/L LAB CHEMISTRY METHOD 09/20/2024 4:26 PM EDT [facility] Microalb/Crea t Ratio 1,560(H) <30 mg/g creat LAB CHEMISTRY METHOD 09/20/2024 4:26 PM EDT [facility] Urine Urine specimen obtained by clean catch procedure / Unknown Non-blood Collection / Unknown 09/20/2024 11:27 AM EDT 09/20/2024 11:27 AM EDT us Gina Hahn MD LAB URINE ORDERABLES Final Res ult [facility] [address] [place] [address], [place] [phone] * (ABNORMAL) Vitamin D 25 hydroxy (09/20/2024 11:27 AM EDT) Vit D, 25-Hydroxy 5.8(L) 30.0 - 80.0 ng/mL LAB CHEMISTRY METHOD 09/20/2024 5:48 PM EDT [facility] Blood Venous blood specimen / Unknown Venipuncture / Unknown 09/20/2024 11:27 AM EDT 09/20/2024 11:27 AM EDT us Gina Hahn MD LAB BLOOD ORDERABLES Final Res ult [facility] [address] [place] [address], * (ABNORMAL) Complete blood count (09/20/2024 11:27 AM EDT) WBC 11.6(H) 4.8 - 10.8 K/mcL LAB HEMETOLOGY METHOD 09/20/2024 2:33 PM EDT [facility] RBC 4.70 3.80 - 4.80 M/mcL LAB HEMETOLOGY METHOD 09/20/2024 2:33 PM EDT [facility] Hemoglobin 11.9 11.5 - 16.0 g/dL LAB HEMETOLOGY METHOD 09/20/2024 2:33 PM EDT [facility] Hematocrit 39.1 35.0 - 47.0 % LAB HEMETOLOGY METHOD 09/20/2024 2:33 PM EDT [facility] MCV 83.7 79.0 - 98.0 FL LAB HEMETOLOGY METHOD 09/20/2024 2:33 PM EDT [facility] MCH 25.5(L) 27.0 - 32.0 pcg LAB HEMETOLOGY METHOD 09/20/2024 2:33 PM EDT [facility] MCHC 30.4(L) 32.0 - 37.0 g/dL LAB HEMETOLOGY METHOD 09/20/2024 2:33 PM EDT [facility] RDW 13.9 11.0 - 15.0 % LAB HEMETOLOGY METHOD 09/20/2024 2:33 PM EDT [facility] Platelets 303 130 - 400 K/mcL LAB HEMETOLOGY METHOD 09/20/2024 2:33 PM EDT [facility] MPV 11.5(H) 7.0 - 11.0 FL LAB HEMETOLOGY METHOD 09/20/2024 2:33 PM EDT [facility] NRBC 0.0 <1.0 % LAB HEMETOLOGY METHOD 09/20/2024 2:33 PM EDT [facility] NRBC Absolute 0.00 <0.10 K/mcL LAB HEMETOLOGY METHOD 09/20/2024 2:33 PM EDT [facility] Blood Venous blood specimen / Unknown Venipuncture / Unknown 09/20/2024 11:27 AM EDT 09/20/2024 11:27 AM EDT us Gina Hahn MD LAB BLOOD ORDERABLES Final Res ult [facility] [address] [place] [address], * (ABNORMAL) Thyroid stimulating hormone (09/20/2024 11:27 AM EDT) TSH 5.34(H) 0.40 - 4.00 mcIU/mL LAB CHEMISTRY METHOD 09/20/2024 5:45 PM EDT [facility] Blood Venous blood specimen / Unknown Venipuncture / Unknown 09/20/2024 11:27 AM EDT 09/20/2024 11:27 AM EDT us Gina Hahn MD LAB BLOOD ORDERABLES Final Res ult [facility] [address] [place] [address], [place] [phone] * Magnesium (09/20/2024 11:27 AM EDT) [facility] Magnesium 2.1 1.9 - 2.6 mg/dL LAB CHEMISTRY METHOD 09/20/2024 4:16 PM EDT [facility] Blood Venous blood specimen / Unknown Venipuncture / Unknown 09/20/2024 11:27 AM EDT 09/20/2024 11:27 AM EDT us Gina Hahn MD LAB BLOOD ORDERABLES Final Res ult [facility] [address] [place] [address], * (ABNORMAL) Hemoglobin A1c (09/20/2024 11:27 AM EDT) [facility] Hemoglobin A1C 8.5(H) <6.5 % LAB CHEMISTRY METHOD 09/20/2024 9:42 PM EDT [facility] Mean Bld Glu Estim. 197 mg/dL LAB CHEMISTRY METHOD 09/20/2024 9:42 PM EDT [facility] Blood Venous blood specimen / Unknown Venipuncture / Unknown 09/20/2024 11:27 AM EDT 09/20/2024 11:27 AM EDT us Gina Hahn MD LAB BLOOD ORDERABLES Final Res ult [facility] [address] [place] [address], [place] [phone] * Vitamin B12 (09/20/2024 11:27 AM EDT) [facility] Vitamin B-12 527 250 - 900 pcg/mL LAB CHEMISTRY METHOD 09/20/2024 4:38 PM EDT [facility] Blood Venous blood specimen / Unknown Venipuncture / Unknown 09/20/2024 11:27 AM EDT 09/20/2024 11:27 AM EDT us Gina Hahn MD LAB BLOOD ORDERABLES Final Res ult [facility] [address] [place] [address], * (ABNORMAL) Comprehensive metabolic panel (09/20/2024 11:27 AM EDT) Sodium 132(L) 133 - 145 mmol/L LAB CHEMISTRY METHOD 09/20/2024 4:16 PM [facility] Potassium 5.3 3.5 - 5.5 mmol/L LAB CHEMISTRY METHOD 09/20/2024 4:16 PM [facility] Chloride 101 96 - 110 mmol/L LAB CHEMISTRY METHOD 09/20/2024 4:16 PM [facility] CO2 24 21 - 32 mmol/L LAB CHEMISTRY METHOD 09/20/2024 4:16 PM [facility] Anion Gap 7 3 - 11 LAB CHEMISTRY METHOD 09/20/2024 4:16 PM [facility] Glucose 243(H) 70 - 100 mg/dL LAB CHEMISTRY METHOD 09/20/2024 4:16 PM [facility] BUN 35(H) 5 - 25 mg/dL LAB CHEMISTRY METHOD 09/20/2024 4:16 PM [facility] Creatinine 1.74(H) 0.50 - 1.10 mg/dL LAB CHEMISTRY METHOD 09/20/2024 4:16 PM [facility] eGFR 35(L) >=60 mL/min/1. 73m2 LAB CHEMISTRY METHOD 09/20/2024 4:16 PM [facility] Comment:Calculation based on the Chronic Kidney Disease Epidemiology Collaboration (CKD-EPI) equation refit without adjustment for race. BUN/Creatinine Ratio 20.1 LAB CHEMISTRY METHOD 09/20/2024 4:16 PM [facility] Calcium 9.2 8.5 - 10.5 mg/dL LAB CHEMISTRY METHOD 09/20/2024 4:16 PM [facility] AST (SGOT) 19 10 - 42 unit/L LAB CHEMISTRY METHOD 09/20/2024 4:16 PM [facility] ALT (SGPT) 19 10 - 60 unit/L LAB CHEMISTRY METHOD 09/20/2024 4:16 PM [facility] Alkaline Phosphatase 133(H) 42 - 121 unit/L LAB CHEMISTRY METHOD 09/20/2024 4:16 PM [facility] Total Protein 7.9 6.0 - 8.0 g/dL LAB CHEMISTRY METHOD 09/20/2024 4:16 PM [facility] Albumin 3.5 3.2 - 5.0 g/dL LAB CHEMISTRY METHOD 09/20/2024 4:16 PM [facility] Total Bilirubin 0.5 0.0 - 1.4 mg/dL LAB CHEMISTRY METHOD 09/20/2024 4:16 PM [facility] Blood Venous blood specimen / Unknown Venipuncture / Unknown 09/20/2024 11:27 AM EDT 09/20/2024 11:27 AM EDT us Gina Hahn MD LAB BLOOD ORDERABLES Final Res ult [facility] [address] [place] [address], * Diabetes Eye Exam (02/25/2023) [facility] Diabetes: Annual Retina Eye Exam Abstracted us Historical Provider HEALTH MAINTENANCE Final Result * Hepatitis C Screening (05/19/2020) [facility] Hepatitis C Screening Abstracted us Historical Provider HEALTH MAINTENANCE Final Result from Last 3 Months or Most Recently Relevant to Health Maintenance Insurance MEDICARE [facility] Advance Directives Documents on File Type Date Recorded Patient Release Of Information Specialist Expl anation Health Care Decision (hx) 05/22/2014 [...] (hx) 05/21/2014 AD REGAN DIRECTIVE Care Teams Rod And Tube Straightener Relationship Specialty Start Date End Date Gina Hahn MD [address] [place] [phone] PCP - General Internal Medicine 08/25/16
== END 2024-12-13 11:06 | disposition home or self-care (01) ==
LOC: HO.MRI 11:05
PROVIDERS: PCP Internal Medicine; Visit Provider Psychiatry & Neurology Neurology
DX: I69.351 Hemiplegia and hemiparesis following cerebral infarction affecting right dominant side (principal); D86.9 Sarcoidosis, unspecified
CPT/HCPCS: 70553; A9585

== ENCOUNTER → 2024-12-13 11:18 | Outpatient (BNV) | payer BC, MEDICARE, SELFPAY | PROVIDERS: PCP Internal Medicine; Visit Provider Radiology Diagnostic Radiology | DX: G31.89 Other specified degenerative diseases of nervous system (principal); R90.82 White matter disease, unspecified | CPT/HCPCS: 70553 ==

== ENCOUNTER 2025-01-01 10:12 | Outpatient (AMB) | payer BC, MEDICARE, SELFPAY ==
[2025-01-01 10:15] VITALS: BP 96/52; PULSE 84; O2SAT 99; BMI 30.1
--- NOTE | 2025-01-01 10:15 | HO.NEPHOV ---
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 Helper Required: No Accompanied by: Son Allergies azithromycin (From Zithromax) Allergy (Severe, Verified 01/01/25 10:18) swelling eyes dulaglutide (Trulicity) Allergy (Severe, Verified 01/01/25 10:18) Pancreatitis levofloxacin (Levaquin) Allergy (Severe, Verified 01/01/25 10:18) Rash bupropion Allergy (Unknown, Verified 01/01/25 10:18) Unknown hydromorphone (From Dilaudid) Allergy (Unknown, Verified 01/01/25 10:18) Unknown morphine Allergy (Unknown, Verified 01/01/25 10:18) Unknown Penicillins Allergy (Unknown, Verified 01/01/25 10:18) Unknown PCN Allergy (Severe, Uncoded 04/26/23 10:55) Anaphylaxis Sulfa Drugs Allergy (Severe, Uncoded 04/26/23 10:55) Rash Medication List - Last Reconciled 01/01/25 by Montana Correia MD albuterol sulfate 2.5 mg (3 mL) inhalation Q6H PRN 30 days albuterol sulfate 90 mcg/actuation 2 puffs inhalation Q6H PRN ergocalciferol (vitamin D2) 1,250 mcg PO QWEEK folic acid 1 mg PO DAILY insulin lispro protamin-lispro 100 unit/mL (75-25) (Humalog Mix 75-25 KwikPen) subcut nebulizers As directed oxycodone myristate CR-ER (Xtampza ER) 13.5 mg PO BID HPI Comments Details: The patient is a 54-year-old individual referred for evaluation and management of chronic kidney disease. The patient was informed by the primary care physician within the last month about elevated creatinine levels, though the patient reports no new symptoms. The patient recalls having questionable kidney levels once in the past summer, which was attributed to dehydration. A review of labs shows fluctuating kidney function, with GFR dropping to 54% in 2018, improving to 80%, dropping again to 50% in 2022, and recovering to 80% in March 2023. The patient has a 24-year history of diabetes mellitus, diagnosed at age 30, with a recent HbA1c of 8.5%. The patient's regimen includes a Novolog 70/30 mix. The patient has associated polyneuropathy. The patient has a history of sarcoidosis, which was diagnosed following a surgical scoping procedure that revealed necrotic lymph nodes. Past treatment included methotrexate for a couple of years. The patient is not currently experiencing a flare-up but recently took prednisone for chest discomfort and shortness of breath, which has since resolved. Past medical history is notable for three known strokes, one of which required surgery. The patient denies a history of hypertension, stating that blood pressure sometimes runs low and has refused treatment for metabolic syndrome. Extensive surgical history includes six back surgeries, two knee surgeries, two sections, thumb surgery, eye surgery, cholecystectomy, and appendectomy. The patient is scheduled for a second eye surgery for a retinal detachment. The patient takes Xtampza for nerve-related pain and Tylenol as needed but avoids NSAIDs. In a review of systems, the patient reports urinary urgency but denies hematuria or a history of kidney stones. The patient also notes back pain in the kidney area, which a prior X-ray deemed muscular. The patient does not consume alcohol. [facility] Medical History (Updated 01/01/25 @ 10:21 by Montana Correia MD) Vertigo Syncope Mixed hyperlipidemia Insomnia Hypertension Elevated TSH Blepharitis Anxiety and depression Anemia Hx of stroke associated with blood clotting tendency delivery delivered Asthma Bronchitis Dysphagia Sarcoidosis Pulmonary nodules Surgical History (Updated 01/01/25 @ 10:18 by PALMIRA Fraire) Hx of eye surgery (~09/2024) Hx of thumb surgery Hx of knee surgery Hx of appendectomy History of back surgery Family History Daughter No problems noted. 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 Lungs entry equal no rales. Heart S1-S2 heard no gallop or rub. Abdomen soft nontender. Neuro alert awake oriented. No asterixis. Extremities no edema. Results Reviewed Results Reviewed: MRI. December 2024. MR/MR head/brain wo/w con IMPRESSION: 1. No evidence of intracranial hemorrhage, acute infarction, mass effect, or edema. No pathological intra-axial or extra-axial contrast enhancement. 2. Mildly age advanced parenchymal atrophy. 3. Old left parietal infarct with associated hemosiderin deposition and gliosis/cystic encephalomalacia. 4. Several tiny old lacunar type infarcts, including within the bilateral thalami and bilateral dinorah. 5. Mild to moderate white matter changes of small vessel ischemia. 6. Susceptibility artifact in the right globe likely from prior vitrectomy for retinal detachment. There is a left retinal detachment as well. Nephrology Results: Hgb, (12.0-16.0) 11.0 g/dl L 03/23/23 WBC, (4.8-10.8) 13.2 X10*3/uL H 03/23/23 Plt Count, (160-400) 392 X10*3/uL 03/23/23 Sodium, (135-145) 138 mmol/L 03/23/23 Potassium, (3.3-5.1) 3.6 mmol/L 03/23/23 Chloride, (96-108) 105 mmol/L 03/23/23 Carbon Dioxide, (22-29) 25 mmol/L 03/23/23 BUN, (9-16) 25 mg/dL H 03/23/23 Creatinine, (0.5-1.4) 1.11 mg/dL 03/23/23 Calcium, (8.4-10.2) 9.2 mg/dL 03/23/23 Assessment & Plan Assessment & Plan (1) CKD (chronic kidney disease): Code(s): N18.9 - Chronic kidney disease, unspecified Category: Medical (2) Sarcoidosis: Code(s): D86.9 - Sarcoidosis, unspecified Category: Medical (3) Diabetes mellitus: Code(s): E11.9 - Type 2 diabetes mellitus without complications Category: Medical Plan 1. Chronic Kidney Disease, Unspecified stage With a longstanding history of diabetes mellitus, I suspect she has underlying diabetic kidney disease. - The patient's kidney function has been fluctuating. - Will order blood work to check current kidney function, a urine test for proteinuria and hematuria, and a renal ultrasound to assess for obstruction. - No new medications will be added at this time pending test results. 2. Type 2 Diabetes Mellitus With Complications - The patient has long-standing, poorly controlled diabetes with an HbA1c of 8.5%, which is a significant risk factor for kidney disease and ?retinopathy. - The importance of maintaining good glycemic control to protect kidney function was emphasized. 3. Sarcoidosis - The planned urine tests will help evaluate for renal involvement. - The patient was advised to follow up with the director of development, Dr. Mackenzie. . Orders: Orders Comprehensive Met. Panel Today D86.9 - Sarcoidosis, unspecified, N18.9 - Chronic kidney disease, unspecified Parathyroid Hormone Intact Today D86.9 - Sarcoidosis, unspecified, N18.9 - Chronic kidney disease, unspecified Phosphorus Today D86.9 - Sarcoidosis, unspecified, N18.9 - Chronic kidney disease, unspecified Total Protein Urine Random Today D86.9 - Sarcoidosis, unspecified, N18.9 - Chronic kidney disease, unspecified US renal BI Today D86.9 - Sarcoidosis, unspecified, N18.9 - Chronic kidney disease, unspecified Complete Blood Count Auto Diff Today D86.9 - Sarcoidosis, unspecified, N18.9 - Chronic kidney disease, unspecified Creatinine Urine Today D86.9 - Sarcoidosis, unspecified, N18.9 - Chronic kidney disease, unspecified UA and rflx microscopic Today D86.9 - Sarcoidosis, unspecified, N18.9 - Chronic kidney disease, unspecified Patient Instructions: - Please go for your blood and urine tests today; the lab is located in [address]. - Our office will arrange for a kidney ultrasound, and the radiology department will call you to schedule it. - It is very important to keep your blood sugar under control to protect your kidneys. - You do not need to start any new medications for your kidneys at this time. - Please schedule an appointment to see your lung doctor, Dr. Mackenzie. - Call our office to schedule a follow-up visit for the second week of February, after you have recovered from your eye surgery Coding Level of Care Code New Pt Level 4 (11749) Diagnoses CKD (chronic kidney disease) N18.9 Sarcoidosis D86.9 Diabetes mellitus E11.9
--- OUTSIDE RECORDS SUMMARY | 2025-01-01 12:27 | XMS_ITS | Encounter Summary ---
Author Organization [facility] Address [address] [place] [address] Care Team Providers Care Fiberglass Fabricator Name Role Phone Gina Hanh MD Primary Care Provider [phone] Reason for Referral * Consultation (Routine) - Closed Specialty Diagnoses / Procedures Referred By Lopez guerra Referred To Contact Nephrology Diagnoses Stage 4 chronic kidney disease (CMS/HCC V24, CMS/HCC V28) Gina Hahn MD [address] [facility] [address] [place] [address] Phone: tel: fax: [facility] [address] [facility] [address] [place] [address] Phone: tel: fax: Referral ID Status Reason Start Date Expiration Date V isits Requested Visits Authorized [id number] Closed Specialty Services Required 11/17/2024 11/17/2025 1 1 Encounter Details Date Type Department Care Team (Late st Contact Info) Description 11/16/2024 Results Follow-Up Internal Medicine - [place] [address] [facility] [address] [place] [address] Gina Hahn MD [address] [place] [address] Social History Tobacco Use Types [...] care for your loved ones. For example, children's tutor nursery or elderly care for an older adult? [...] Upcoming Encounters Date Type Department Care Team ([facility] st Contact Info) Description 01/08/2025 10:30 AM EST Consult Internal Medicine - [place] [address] [facility] [address] [place] [phone] Gina Hahn MD [address] [place] [phone] Scheduled Referrals Name Type Priority Associated Diagnoses [...] documented as of this encounter Care Teams Fiberglass Fabricator Relationship Specialty Start Date End Date Gina Hahn MD [address] [facility] [address] [place] [phone] PCP - General Internal Medicine 08/25/16 documented as of this encounter
--- OUTSIDE RECORDS SUMMARY | 2025-01-01 12:27 | XMS_ITS | Clinical Summary ---
Author Organization [facility] Address [address] [place] [address] Phone Care Team Providers Care Knitted Goods Shaper Name Role Phone Gina Hahn MD Primary Care Provider [phone] Allergies Active Allergy Reactions Criticality Noted Date [...] Active oxyCODONE myristate (Xtampza ER) 13.5 mg capsule,sprinkle, ER 12hr tmprr 0 Active miscellaneous medical supply (Blood Pressure Cuff) miscIndications:E levated blood pressure reading without diagnosis of hypertension 1 each 1 (one) time each day. 1 each 5 Active simethicone (MYLICON) 125 mg chewable tablet Chew 1 tablet (125 mg total) every 6 (six) hours if needed for flatulence. 30 tablet 3 5 Active insulin aspart protamine-insulin aspart (NovoLOG Mix 70-30FlexPen U-100) 100 unit/mL [...] blood sugar diagnostic (FreeStyle Lite Strips) test stripIndications: Type 2 diabetes mellitus with other diabetic kidney complication ([facility]/HCC V24, [facility]/HCC V28) 1 each by Other route 2 [...] per week. 12 capsule 3 5 Active Active Problems Problem Noted Date Diagnosed Date Wheelchair dependent 05/17/2024 Lumbar radiculopathy 05/17/2024 Herniated lumbar intervertebral disc 05/17/2024 Abnormal LFTs 02/07/2024 Anxiety and depression 02/07/2024 Constipation 02/07/2024 CVA (cerebral vascular accident) ([facility] V24, [facility]/[facility] V28) 02/07/2024 Vertigo 02/06/2024 Type 2 diabetes mellitus, wi th long-term current use of insulin ([facility] V24, [facility] V28) 02/06/2024 Cerebrovascular accident (CV A) due to thrombosis of right posterior cerebral artery ([facility] V24, [facility] V28) 02/06/2024 Mixed hyperlipidemia 02/06/2024 HTN (hypertension), benign 02/06/2024 Sarcoidosis 02/06/2024 Nasal polyp 02/05/2021 Nose pain 02/05/2021 Nerve injury 01/15/2021 Overview (05/17/2024): left foot Diabetic polyneuropathy asso ciated with type 2 diabetes mellitus ([facility] V24, [facility] V28) 04/10/2019 Microalbuminuria 01/12/2018 Bone fracture 10/18/2017 Pulmonary nodules 10/18/2017 Sarcoid 10/18/2017 Ankle fracture, right 10/14/2017 Elevated TSH 10/14/2017 Vitamin D deficiency 10/14/2017 Hypertension 09/15/2017 Type 2 diabetes mellitus wit h renal manifestations ([facility] V24, [facility] V28) 09/05/2017 Blepharitis 08/18/2017 Phlebitis 08/18/2017 Anemia 06/27/2017 Syncope 06/27/2017 Pedal edema 05/27/2017 Facial numbness 04/06/2017 Insomnia 11/11/2016 Vitamin B12 deficiency 09/15/2015 Lumbar spinal stenosis 07/30/2014 Chronic lower back pain 06/03/2014 Hidradenitis suppurativa 06/03/2014 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 Encounters Date Type Department Care Team Description 12/10/2024 Telephone Internal Medicine [facility] [address] [phone] Gina Hahn MD 11/16/2024 11:32 AM EDT - 11/16/2024 11:59 PM EDT Hospital Encounter [facility] Xray [address] [place] [phone] Right loin pain Discharge Disposition: Home or Self Care 11/16/2024 10:15 AM EDT Office Visit Internal Medicine [facility] [address] [phone] Gina Hahn MD Right loin pain (Primary Dx); Type 2 diabetes mellitus without complication, with long-term current use of insulin ([facility] V24, [facility] V28); Cerebrovascular accident (CVA) due to thrombosis of right posterior cerebral artery ([facility] V24, [facility] V28) 11/16/2024 Telephone Internal Medicine [facility] [address] [phone] Gina Hahn MD 11/16/2024 Results Follow-Up Internal Medicine [facility] [address] [phone] Gina Hahn MD 11/14/2024 Telephone Internal Medicine [facility] [address] [phone] Gina Hahn MD 10/23/2024 Telephone Internal Medicine [facility] [address] [phone] Gina Hahn MD 10/05/2024 Telephone Internal Medicine [facility] [address] [phone] Gina Hahn MD from Last 3 Months Surgical History Surgery Date Site/Laterality Comments CAROTID ENDARTERECTOMY 09/2018 Left PROCEDURE: HISTORICAL CAROTID ENDART; COMMENT: Dr. [facility] Medical History Medical History Date Comments [...] 2 diabetes mellitus wit h renal manifestations ([facility] V24, [facility] V28) 09/05/2017 DX:Type 2 diabetes mellitus with renal manifestations ([facility]) Facial numbness 04/06/2017 DX:Facial numbne ss Hidradenitis suppurativa 06/03/2014 DX:Hidr adenitis suppurativa Lumbar spinal stenosis 07/30/2014 DX:Lumbar spinal stenosis 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 DX:Mese nteric lymphadenitis Phlebitis 08/18/2017 DX:Phlebitis History of shingles 11/16/2016 DX:History o f shingles Syncope 06/27/2017 DX:Syncope Microalbuminuria 01/12/2018 DX:Microalbumin uria Anxiety and depression DX:Anxiet y and depression CVA (cerebral vascular accid ent) ([facility] V24, [facility] V28) DX:CVA (cerebral vascular a ccident) ([facility]) Sarcoidosis DX:Sarcoidosis Constipation DX:Constipation Abnormal LFTs DX:Abnormal [...] care for your loved ones. For example, director child development center or elderly care for an older adult? [...] 10:30 AM EST Consult Internal Medicine - [address] [place] [address] Gina Hahn MD [address] [place] [phone] Health Maintenance Due Date Last Done [...] Retina Eye Exam 02/26/2024 02/25/2023 COVID-19 Vaccine (2024-2 6 season) 2024 Influenza Vaccine (#1) 2024 Diabetes: [...] Procedure Name Priority Date/Time Associated Diagnosis Comments EXTERNAL MRI REPORT 12/13/2024 EXTERNAL MRI REPORT 12/13/2024 XR ABDOMEN 2 VIEWS Routine 11/16/2024 11 [...] Routine 11/16/2024 10:58 AM EDT Diabetes mellitus ([facility]/HCC V24, [facility]/HCC V28) Cerebral infarction due to thrombosis of right posterior cerebral artery ([facility]/HCC V24, [facility]/HCC V28) Lumbago MICROALBUMIN CREATININE URINE RATIO Routine 09/20/2024 11:27 AM EDT Type 2 diabetes mellitus with other circulatory complication, with long-term current use of insulin ([facility] V24, [facility] V28) HTN (hypertension), benign Mixed hyperlipidemia Vitamin D deficiency Vertigo HEMOGLOBIN A1C Routine 09/20/2024 11:27 AM EDT Type 2 diabetes mellitus with other circulatory complication, with long-term current use of insulin ([facility] V24, [facility] V28) HTN (hypertension), benign Mixed hyperlipidemia Vitamin D deficiency Vertigo LIPID PANEL WITH REFLEX TO DIRECT LDL Routine 09/20/2024 11:27 AM EDT Type 2 diabetes mellitus with other circulatory complication, with long-term current use of insulin ([facility] V24, [facility] V28) HTN (hypertension), benign Mixed hyperlipidemia Vitamin D deficiency Vertigo DIABETES EYE EXAM Routine 02/25/2023 HEPATITIS C SCREENING Routine 05/19/2020 from Last 3 Months or Most Recently Relevant to Health Maintenance Results * External MRI Report (12/13/2024) Only the most recent of2 resultswithin the time period is included. Anatomical Region Laterality Modality Magnetic Resonan ce us Provider [facility] IMG MRI PROCEDURES Final Result * XR Abdomen 2 Views (11/16/2024 11:53 AM EDT) Anatomical Region Laterality Modality Body Radiographic Amberly ging 11/16/2024 12:1 0 PM EDT Impressions 11/16/2024 12:11 PM EDT Nonobstructive bowel gas pattern. No radiopaque calculus is seen. If clinical concern for renal calculus persists, further evaluation with ultrasound should be considered. Code 10959 -------- FINAL REPORT -------- Dictated By: Francois Mendieta Dictated Date: 11/16/2024 12:10 ET Assigned Physician: Francois Mendieta Reviewed and Electronically Signed By: Francois Mendieta Signed Date: 11/16/2024 12:11 ET Workstation ID: [id number] Transcribed By: Self Edit Transcribed Date: 11/16/2024 [...] further evaluation withultrasound should be considered. Code 44369 -------- FINAL REPORT -------- Dictated By: Francois Mendieta Dictated Date: 11/16/2024 12:10 ET Assigned Physician: Francois Mendieta Reviewed and Electronically Signed By: Francois Mendieta Signed Date: 11/16/2024 12:11 ET Workstation ID: [id number] Transcribed By: Self Edit Transcribed Date: 11/16/2024 12:10 ET Gina Hahn MD IMG XR PROCEDURES Final Result * (ABNORMAL) Urinalysis with reflex microscopic and culture (11/16/2024 10:58 AM EDT) Specific [place] Urine >=1.030 1.003 - 1.030 LAB URINALYSIS - AUTOMATED METHOD [facility] pH, Urine 5.5 5.0 - 8.0 pH LAB URINALYSIS - AUTOMATED METHOD 11/16/2024 2:20 PM [facility] Leukocytes, Urine Small(A) Negative LAB URINALYSIS - AUTOMATED METHOD 11/16/2024 2:20 PM [facility] Nitrite, Urine Negative Negative LAB URINALYSIS - AUTOMATED METHOD 11/16/2024 2:20 PM [facility] Protein, Urine >=300(A) <=Trace mg/dL LAB URINALYSIS - AUTOMATED METHOD 11/16/2024 2:20 PM [facility] Glucose, Urine 250(A) Negative mg/dL LAB URINALYSIS - AUTOMATED METHOD 11/16/2024 2:20 PM [facility] Ketones, Urine 15(A) Negative mg/dL LAB URINALYSIS - AUTOMATED METHOD 11/16/2024 2:20 PM [facility] Urobilinogen, Urine 1.0 0.2 - 1.0 mg/dL LAB URINALYSIS - AUTOMATED METHOD 11/16/2024 2:20 PM [facility] Bilirubin, Urine Small(A) Negative LAB URINALYSIS - AUTOMATED METHOD 11/16/2024 2:20 PM [facility] Blood, Urine Trace(A) Negative LAB URINALYSIS - AUTOMATED METHOD 11/16/2024 2:20 PM EDT [facility] RBC, Urine 7.0(H) 0 - 4 /HPF 11/16/2024 2:20 PM EDT [facility] WBC, Urine 40(H) 0 - 4 /HPF 11/16/2024 2:20 PM EDT [facility] Squamous Epithelial, Urine >100(H) 0 - 60 /LPF 11/16/2024 2:20 PM EDT [facility] Bacteria, Urine Few(A) Negative /HPF 11/16/2024 2:20 PM EDT [facility] Hyaline Casts, Urine 0 0 - 3 /LPF 11/16/2024 2:20 PM EDT [facility] Urine Urine specimen obtained by clean catch procedure / Unknown Non-blood Collection / Unknown 11/16/2024 10:58 AM EDT 11/16/2024 10:59 AM EDT us Gina Hahn MD LAB URINE ORDERABLES Final Res ult Performing Organization Address City/[facility]/ZIP Co de Phone Number [facility] [address] [place] [address], [place] [phone] * Regalado urine culture tube (11/16/2024 10:58 AM EDT) Extra Tube Hold for add-ons. 11/16/2024 4:01 PM EDT [facility] Comment:Auto resulted. Urine Urine specimen obtained by clean catch procedure / Unknown Non-blood Collection / Unknown 11/16/2024 10:58 AM EDT 11/16/2024 10:59 AM EDT us Gina Hahn MD LAB URINE ORDERABLES Final Res ult [facility] [address] [place] [address], * (ABNORMAL) CBC auto differential (11/16/2024 10:58 AM EDT) [facility] WBC 9.8 4.8 - 10.8 K/mcL LAB HEMETOLOGY METHOD 11/16/2024 1:52 PM EDT [facility] RBC 4.70 3.80 - 4.80 M/mcL LAB HEMETOLOGY METHOD 11/16/2024 1:52 PM EDT [facility] Hemoglobin 12.1 11.5 - 16.0 g/dL LAB HEMETOLOGY METHOD 11/16/2024 1:52 PM EDT [facility] Hematocrit 39.5 35.0 - 47.0 % LAB HEMETOLOGY METHOD 11/16/2024 1:52 PM EDT [facility] MCV 83.3 79.0 - 98.0 FL LAB HEMETOLOGY METHOD 11/16/2024 1:52 PM EDT [facility] MCH 25.5(L) 27.0 - 32.0 pcg LAB HEMETOLOGY METHOD 11/16/2024 1:52 PM EDT [facility] MCHC 30.6(L) 32.0 - 37.0 g/dL LAB HEMETOLOGY METHOD 11/16/2024 1:52 PM EDT [facility] RDW 14.9 11.0 - 15.0 % LAB HEMETOLOGY METHOD 11/16/2024 1:52 PM EDT [facility] Platelets 340 130 - 400 K/mcL LAB HEMETOLOGY METHOD 11/16/2024 1:52 PM EDT [facility] MPV 10.7 7.0 - 11.0 FL LAB HEMETOLOGY METHOD 11/16/2024 1:52 PM EDT [facility] NRBC 0.0 <1.0 % LAB HEMETOLOGY METHOD 11/16/2024 1:52 PM EDT [facility] NRBC Absolute 0.00 <0.10 K/mcL LAB HEMETOLOGY METHOD 11/16/2024 1:52 PM EDT [facility] Neutrophils Relative 64.0 % LAB HEMETOLOGY METHOD 11/16/2024 1:52 PM [facility] Lymphocytes Relative 23.1 % LAB HEMETOLOGY METHOD 11/16/2024 1:52 PM EDT [facility] Monocytes Relative 8.1 % LAB HEMETOLOGY METHOD 11/16/2024 1:52 PM EDT [facility] Eosinophils Relative 3.8 % LAB HEMETOLOGY METHOD 11/16/2024 1:52 PM [facility] Basophils Relative 0.6 % LAB HEMETOLOGY METHOD 11/16/2024 1:52 PM [facility] Immature Granulocytes Relative 0.4 % LAB HEMETOLOGY METHOD 11/16/2024 1:52 PM [facility] Neutrophils Absolute 6.28 1.50 - 7.00 K/mcL LAB HEMETOLOGY METHOD 11/16/2024 1:52 PM [facility] Lymphocytes Absolute 2.27 1.00 - 5.00 K/mcL LAB HEMETOLOGY METHOD 11/16/2024 1:52 PM [facility] Monocytes Absolute 0.79 0.20 - 1.00 K/mcL LAB HEMETOLOGY METHOD 11/16/2024 1:52 PM EDT [facility] Eosinophils Absolute 0.37 0.00 - 0.50 K/mcL LAB HEMETOLOGY METHOD 11/16/2024 1:52 PM [facility] Basophils Absolute 0.06 0.00 - 0.20 K/mcL LAB HEMETOLOGY METHOD 11/16/2024 1:52 PM EDT [facility] Immature Granulocytes Absolute 0.04(H) 0.00 - 0.03 K/mcL LAB HEMETOLOGY METHOD 11/16/2024 1:52 PM EDT [facility] Blood Venous blood specimen / Unknown Venipuncture / Unknown 11/16/2024 10:58 AM EDT 11/16/2024 10:59 AM EDT us Gina Hahn MD LAB BLOOD ORDERABLES Final Res ult Performing Organization Address [facility]/ZIP Co de Phone Number [facility] [address] [place] [address], [place] [phone] * (ABNORMAL) Sedimentation rate (11/16/2024 10:58 AM EDT) Sed Rate 44(H) 0 - 30 mm/hr LAB HEMETOLOGY METHOD 11/16/2024 1:59 PM EDT [facility] Blood Venous blood specimen / Unknown Venipuncture / Unknown 11/16/2024 10:58 AM EDT 11/16/2024 10:59 AM EDT us Gina Hahn MD LAB BLOOD ORDERABLES Final Res ult Performing Organization Address [facility] Co de Phone Number [facility] [address] [place] [address], [place] [phone] * Culture urine (11/16/2024 10:58 AM EDT) Culture, Urine <10,000 cfu/mL Mixed bacterial ralph 11/17/2024 11:11 AM EDT [facility] Urine Urine specimen obtained by clean catch procedure / Unknown Non-blood Collection / Unknown 11/16/2024 10:58 AM EDT 11/16/2024 2:20 PM EDT us Gina Hahn MD LAB MICROBIOLOGY - GENERAL ORD ERABLES Final Result Performing Organization Address City/[facility]/ZIP Co de Phone Number [facility] [address] [place] [address], [place] [phone] * (ABNORMAL) Basic metabolic panel (11/16/2024 10:58 AM EDT) Sodium 133 133 - 145 mmol/L LAB CHEMISTRY METHOD 11/16/2024 2:24 PM EDT [facility] Potassium 4.8 3.5 - 5.5 mmol/L LAB CHEMISTRY METHOD 11/16/2024 2:24 PM EDT [facility] Chloride 98 96 - 110 mmol/L LAB CHEMISTRY METHOD 11/16/2024 2:24 PM EDT [facility] CO2 26 21 - 32 mmol/L LAB CHEMISTRY METHOD 11/16/2024 2:24 PM [facility] Anion Gap 9 3 - 11 LAB CHEMISTRY METHOD 11/16/2024 2:24 PM [facility] Glucose 164(H) 70 - 100 mg/dL LAB CHEMISTRY METHOD 11/16/2024 2:24 PM [facility] BUN 28(H) 5 - 25 mg/dL LAB CHEMISTRY METHOD 11/16/2024 2:24 PM [facility] Creatinine 2.01(H) 0.50 - 1.10 mg/dL LAB CHEMISTRY METHOD 11/16/2024 2:24 PM EDT [facility] eGFR 29(L) >=60 mL/min/1. 73m2 LAB CHEMISTRY METHOD 11/16/2024 2:24 PM EDT [facility] Comment:Calculation based on the Chronic Kidney Disease Epidemiology Collaboration (CKD-EPI) equation refit without adjustment for race. BUN/Creatinine Ratio 13.9 LAB CHEMISTRY METHOD 11/16/2024 2:24 PM [facility] Calcium 9.7 8.5 - 10.5 mg/dL LAB CHEMISTRY METHOD 11/16/2024 2:24 PM [facility] Blood Venous blood specimen / Unknown Venipuncture / Unknown 11/16/2024 10:58 AM EDT 11/16/2024 10:59 AM EDT us Gina Hahn MD LAB BLOOD ORDERABLES Final Res ult [facility] [address] [place] [address], [place] [phone] * (ABNORMAL) Lipid panel with reflex to direct LDL (09/20/2024 11:27 AM EDT) Cholesterol 179 0 - 200 mg/dL LAB CHEMISTRY METHOD 09/20/2024 4:16 PM EDT [facility] Triglycerides 182(H) 0 - 150 mg/dL LAB CHEMISTRY METHOD 09/20/2024 4:16 PM EDT [facility] HDL 52 >=40 mg/dL LAB CHEMISTRY METHOD 09/20/2024 4:16 PM EDT [facility] LDL Calculated 91 0 - 100 mg/dL LAB CHEMISTRY METHOD 09/20/2024 4:16 PM EDT [facility] Comment:Estimated LDL Calcul ated using equation: Total cholesterol - HDL cholesterol - (Triglycerides/5) VLDL Cholesterol Xander 36.4 mg/dL LAB CHEMISTRY METHOD 09/20/2024 4:16 PM EDT [facility] Non HDL Chol. (LDL+VLDL) 127 <145 mg/dL LAB CHEMISTRY METHOD 09/20/2024 4:16 PM EDT [facility] Chol/HDL Ratio 3.4 0.0 - 4.4 LAB CHEMISTRY METHOD 09/20/2024 4:16 PM EDT [facility] Blood Venous blood specimen / Unknown Venipuncture / Unknown 09/20/2024 11:27 AM EDT 09/20/2024 11:27 AM EDT us Gina Hahn MD LAB BLOOD ORDERABLES Final Res ult Performing Organization Address [facility]/ZIP Co de Phone Number [facility] [address] [place] [address], * (ABNORMAL) Microalbumin creatinine urine ratio (09/20/2024 11:27 AM EDT) Creatinine, Urine 218.0 mg/dL LAB CHEMISTRY METHOD 09/20/2024 4:26 PM EDT [facility] Microalb, Ur 3,400.0(H ) 0.0 - 29.0 mg/L LAB CHEMISTRY METHOD 09/20/2024 4:26 PM EDT [facility] Microalb/Crea t Ratio 1,560(H) <30 mg/g creat LAB CHEMISTRY METHOD 09/20/2024 4:26 PM EDT [facility] Urine Urine specimen obtained by clean catch procedure / Unknown Non-blood Collection / Unknown 09/20/2024 11:27 AM EDT 09/20/2024 11:27 AM EDT us Gina Hahn MD LAB URINE ORDERABLES Final Res ult Performing Organization Address City/[facility]/ZIP Co de Phone Number [facility] [address] [place] [address], [place] [phone] * (ABNORMAL) Hemoglobin A1c (09/20/2024 11:27 AM EDT) Hemoglobin A1C 8.5(H) <6.5 % LAB CHEMISTRY METHOD 09/20/2024 9:42 PM EDT [facility] Mean Bld Glu Estim. 197 mg/dL LAB CHEMISTRY METHOD 09/20/2024 9:42 PM EDT [facility] Blood Venous blood specimen / Unknown Venipuncture / Unknown 09/20/2024 11:27 AM EDT 09/20/2024 11:27 AM EDT us Gina Hahn MD LAB BLOOD ORDERABLES Final Res ult [facility] [address] [place] [address], [place] [phone] * Diabetes Eye Exam (02/25/2023) Diabetes: Annual Retina Eye Exam Abstracted Historical Provider HEALTH MAINTENANCE Final Result * Hepatitis C Screening (05/19/2020) Hepatitis C Screening Abstracted Historical Provider HEALTH MAINTENANCE Final Result from Last 3 Months or Most Recently Relevant to Health Maintenance Insurance MEDICARE [facility] Advance Directives Documents on File Type Date Recorded Patient Telesales Agent Expl anation Health Care Decision (hx) 05/22/2014 [...] DIRECTIVE Health Care Decision (hx) 05/21/2014 AD RGEAN DIRECTIVE Care Teams Knitted Goods Shaper Relationship Specialty Start Date End Date Gina Hahn MD [address] [place] [phone] PCP - General Internal Medicine 08/25/16
--- OUTSIDE RECORDS SUMMARY | 2025-01-01 12:27 | XMS_ITS | Encounter Summary ---
Author Organization [facility] Address [address] [place] [address] Care Team Providers Care Supervisor Metal Cans Name Role Phone Gina Hahn MD Primary Care Provider [phone] Encounter Details Date Type Department Care Team (Late st Contact Info) Description 02/07/2024 Referral Triage [facility] [address] [place] [address] Kiya Salguero Social History Tobacco [...] 10:30 AM EST Consult Internal Medicine - [place] [address] [phone] Gina Hahn MD [address] [place] [phone] documented as of this encounter Visit Diagnoses Not on filedocumented in this encounter Care Teams Supervisor Metal Cans Relationship Specialty Start Date End Date Gina Hahn MD [address] [phone] PCP - General Internal Medicine 08/25/16 documented as of this encounter
--- OUTSIDE RECORDS SUMMARY | 2025-01-01 12:27 | XMS_ITS | Patient Health Record ---
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 (Z79.4) Active confirmed Problem Charcot's arthropathy (627924819) Charcot's arthropathy (M14.60) Active confirmed Plan Of Treatment No Information Insurance Providers Payer Name Payer Address Payer Phone Subscriber Number Group Number Insured Name Patient Relationship to Insured Coverage Start Date Coverage End Date [employer] of [place] [address] [place] [phone] [id number] Nikky Elizalde Self - patient is the insured Medical (General) History Medical History History ICD Code hypertension phlebitis lymphangitis diabetes mellitus 2 with peripheral neur opathy diabetes mellitus 2 with renal manifesta tion vitamin b12 deficiency vitamin D deficiency anemia sarcoid anxiety insomnia lumbar spine stenosis pulmonary nodules
--- OUTSIDE RECORDS SUMMARY | 2025-01-01 12:27 | XMS_ITS | Data Portability ---
Author Organization [place] - [facility] Address [address] [place] [id number] Care Team Providers Care Satellite Project Site Monitor Name Role Phone SANJUANA JULIAN Primary Care [...] days Thank you for your visit with [email or web address] today. We cannot always find the exact [...] in your condition between 8am-10pm, please call [email or web address] at [phone] to help navigate your care. In order [...] after care of this patient according to [facility] infection prevention protocols. Not available 01/02/2021 20:42:58 [...] after care of this patient according to [facility]'s infection prevention protocols. Not available 01/20/2022 13:23:40 [...] Shingles: considered no rash noted on exam. [place] palsy: considered but no one sided facial [...] after care of this patient according to [email or web address] infection prevention protocols. Time On Scene with Patient: 01:03:29 Not available 02/07/2022 19:49:35 Plan of Treatment Reminders Order Date Submit Date Provider Last Modified By Organization Details Last Modified Time Details Appointments None recorded. Lab urinalysis , dipstick 2020 021 kel [facility], [address] [facility], [place], [address], 10:12:23 culture, urine 2020 021 HAYDEN [facility] (Centralized Electronic Ordering - All Locations), Patient Can Go To The Location Of Their Choice, [id number] 09:14:09 urinalysis , dipstick 2020 021 trang [facility] [place], [address] [facility], [place], [address], 13:57:23 BMP, serum or plasma 2020 021 HAYDEN [facility] (Centralized Electronic Ordering - All Locations), Patient Can Go To The Location Of Their Choice, [facility] 21:20:37 CBC w/ auto diff 2020 021 HAYDEN [facility] (Centralized Electronic Ordering - All Locations), Patient Can Go To The Location Of Their Choice, [facility] 20:50:04 Referral None recorded. Procedures None recorded. Surgeries None recorded. Imaging None recorded. Medication Orders doxycyclin e hyclate 100 mg tablet 2022 023 [email or web address] [facility]acy #[id number], [address] [place], [address], 3 19:37:57 mupirocin 2 % topical ointment 2022 023 [facility]/Pharmacy #[id number], [address] [place], [address], 3 10:32:50 Valtrex 1 gram tablet 2022 023 [facility]/Pharmacy #031, [address] [place], [address], 3 10:32:47 valacyclov ir 1 gram tablet 2021 022 [email or web address] [facility], [address] [place], [address], 3 10:07:34 cephalexin 500 mg tablet 2020 021 [email or web address] [facility], [address] [place], [address], 2 12:58:33 Azo Urinary Pain Relief 95 mg tablet 2020 021 [email or web address] Not available 12:59:31 lidocaine 5 % topical patch 2020 DBA_PATCH_ [id number] [facility]/Pharmacy #5666, [address] [place], [address], 08:33:53 Patient TargetsNo targets recorded. Patient Instructions Encounter Date Encounter Id Patient Instructions Last Modified By Organization Details Last Modified Time 01/01/2021 [id number] Thank you for yo ur visit with [facility] today. We cannot always find the exact [...] in your condition between 8am-10pm, please call [facility] at [phone] to help navigate your care. Not available 01/02/2021 20:43:08 01/15/2021 [id number] URINARY TRACT INFECTION INSTRUCTIONS BASIC INFORMATION Urinary [...] in your condition between 8am-10pm, please call [email or web address] at [phone] to help navigate your care. [email or web address] Not available 01/15/2021 10:20:34 01/20/2022 [id number] shingles: care instructions Not available 01/20/2022 13:23:40 Reason for Referral None Reported. Results Created Date Observation Date Name Description Value Unit Range Abnormal Flag Note LastModifiedBy Organization Detail LastModifiedTime 05/23/19 21 05/22/2020 urina lysis , dipst ick Appearance clear Not Available [facility] [address] [place], [address], 05/22/2020 13:22:06 05/23/19 21 05/22/2020 urina lysis , dipst ick Color light yellow Not Available [facility] [address] [place], [address], 05/22/2020 13:22:06 05/23/19 21 05/22/2020 urina lysis , dipst ick Glucose positi ve Not Available [facility] [address] [place], [address], 05/22/2020 13:22:06 05/23/19 21 05/22/2020 urina lysis , dipst ick Bilirubin negati ve Not Available [facility] [address], [place], [address], 05/22/2020 13:22:06 05/23/19 21 05/22/2020 urina lysis , dipst ick Ketones NEG Not Available [facility] [address] [place], [address], 05/22/2020 13:22:06 05/23/19 21 05/22/2020 urina lysis , dipst ick Sp. [place]idget[place] 1.015 Not Available [facility] [address] [place], [address], 05/22/2020 13:22:06 05/23/19 21 05/22/2020 urina lysis , dipst ick Blood NEG Not Available [facility] [address] [place], [address], 05/22/2020 13:22:06 05/23/19 21 05/22/2020 urina lysis , dipst ick pH 5.0 Not Available [facility] [address] [place], [address], 05/22/2020 13:22:06 05/23/19 21 05/22/2020 urina lysis , dipst ick Protein positi ve Not Available [facility] [address] [place], [address], 05/22/2020 13:22:06 05/23/19 21 05/22/2020 urina lysis , dipst ick Urobilirubin negati ve Not Available [facility] [address] [place], [address], 05/22/2020 13:22:06 05/23/19 21 05/22/2020 urina lysis , dipst ick Nitrites NEG Not Available [facility] [address] [place], [address], 05/22/2020 13:22:06 05/23/19 21 05/22/2020 urina lysis , dipst ick Leukocytes NEG Not Available [facility] [address] [place], [address], 05/22/2020 13:22:06 05/23/19 21 05/22/2020 CBC w/ [...] Go To The Location Of Their Choice, [id number] 01/18/2021 09:14:09 01/16/20 21 01/18/2021 URINE CULTU RE piperacillin /tazobactam PIPERA CILLIN /TAZOB AC SUSCEP TIBLE susceptib le Not Available [facility] (Centralized Electronic Ordering - All Locations) Patient Can Go To The Location Of Their Choice, [id number] 01/18/2021 09:14:09 01/16/20 21 01/18/2021 URINE CULTU RE trimeth/sulf amethox TRIMET H/SULF AMETHO X SUSCEP TIBLE susceptib le Not Available [facility] (Centralized Electronic Ordering - All Locations) Patient Can Go To The Location Of Their Choice, [id number] 01/18/2021 09:14:09 01/16/2001/18/2021 URINE CULTU RE tetracycline TETRAC YCLINE RESIST ANT resistant Not Available [facility] (Centralized Electronic Ordering - All Locations) Patient Can Go To The Location Of Their Choice, [id number] 01/18/2021 09:14:09 01/16/2001/15/2021 urina lysis , dipst ick Appearance cloudy Not Available [facility] [address] [place], [address], 01/15/2021 09:55:01 01/16/2001/15/2021 urina lysis , dipst ick Color yellow Not Available [facility] Home [address] [place], [address], 01/15/2021 09:55:01 01/16/2001/15/2021 urina lysis , dipst ick Glucose (ref: neg) ++++ Not Available [facility] Home [address] [place], [address], 01/15/2021 09:55:01 01/16/20 21 01/15/2021 urina lysis , dipst ick Bilirubin (ref: neg) Neg Not Available [facility] [address] [place], [address], 01/15/2021 09:55:01 01/16/20 21 01/15/2021 urina lysis , dipst ick Ketones (ref: neg) + Not Available [facility] [address] [place], [address], 01/15/2021 09:55:01 01/16/20 21 01/15/2021 urina lysis , dipst ick Specific Br[place] (ref: 1.003 - 1.035) 1.030 Not Available [facility] [address] [place], [address], 01/15/2021 09:55:01 01/16/20 21 01/15/2021 urina lysis , dipst ick Blood (ref: neg) ++ Not Available [facility] [address], [place], [address], 01/15/2021 09:55:01 01/16/20 21 01/15/2021 urina lysis , dipst ick pH (ref: 5-7) 5.0 Not Available [facility] [address] [place], [address], 01/15/2021 09:55:01 01/16/20 21 01/15/2021 urina lysis , dipst ick Protein (ref: neg) +++ Not Available [facility] [address] [place], [address], 01/15/2021 09:55:01 01/16/20 21 01/15/2021 urina lysis , dipst ick Urobilinogen (ref: 0.2) 0.2 Not Available [facility] [address], [place], [address], 01/15/2021 09:55:01 01/16/20 21 01/15/2021 urina lysis , dipst ick Nitrites (ref: neg) negati ve Not Available [facility] [address] [place], [address], 01/15/2021 09:55:01 01/16/20 21 01/15/2021 urina lysis , dipst ick Leukocytes (ref: neg) + Not Available [facility] [address] [place], [address], 01/15/2021 09:55:01 01/16/20 21 01/15/2021 urina lysis , dipst ick [facility], [address], [place] [address], [id number] Not Available [facility] [address] [place], [address], 01/15/2021 09:55:01 Result Notes None recorded. Problems Name Problem SNOMED Code Status Onset Date Resolution Date Notes Provider Name and Address Organization Details Recorded Time Sarcoido sis 82782423 Active 2018 LISSA BLACKWOOD NP [address] [place], [address], [place] [facility] 13:03:33 Type 2 diabetes mellitus 79052567 Active 2020 SUZETTE COYNE NP [address] [place], [address], [place] [facility] 09:46:27 Operatio n on lumbar spine Completed 202001/15/2021 Removal Reason: fusion SUZETTE COYNE NP [address] [place], [address], [place] [facility] 09:46:52 Chronic cerebrov ascular accident 9535897164 42197 Active 2020 SUZETTE COYNE NP [address] [place], [address], [place] [facility] 09:47:22 Carotid endarter ectomy Completed 202001/15/2021 left SUZETTE COYNE NP [address] [place], [address], [place] [facility] 09:47:53 Hyperlip idemia 46664092 Active 2020 SUZETTE COYNE, JOHNATHAN [address], [facility] [place], [address], [place] [facility] 09:48:25 Nerve injury 43385037 Active 2020 left foot SUZETTE ROBERTSJOHNATHAN BRAUN [address], [facility] [place], [address], [place] [facility] 09:53:54 Problem Notes None recorded. Procedures Surgical History Date Name Laterality Status Provider Name and Address Organization Details Recorded Time 022 Medication Review completed Nina Mcdonnell NP [address] [place], [address], [place] [facility] 01/20/2022 13:08:49 021 Cerumen Removal - DH completed Valentina HESS, JOHNATHAN [address] [place], [address], [place] [facility] 01/01/2021 18:36:47 021 Venipuncture - DH completed NOE JONAS [address] [place], [address], [place] [facility] 05/22/2020 14:02:42 021 Venipuncture - DH completed Nicky Krishnamurthy NP [address] [place], [address], [place] [facility] 04/08/2020 15:55:17 021 Venipuncture - DH completed Clarita Buckner NP [address] [place], [address], [place] [facility] 03/13/2020 18:02:45 Appendectomy completed JAQUI DECKER NP [address] [place], [address], [place] [facility] 10/27/2018 13:12:55 Cholecystectomy completed JAQUI DECKER NP [address] [place], [address], [place] [facility] 10/27/2018 13:13:15 exploratory laparotomy completed JAQUI DECKER NP [address], [place], [address], [place] [facility] 10/27/2018 13:13:34 arthroscopic knee operation completed NOE Corona [address], [place], [address], [place] [facility] 02/07/2022 10:08:48 section completed NOE Corona [address], [place], [address], [place] [facility] 02/07/2022 10:09:07 Back Surgery completed NOE Corona [address], [place], [address], [place] [facility] 02/07/2022 10:09:16 Imaging Results None recorded. Procedure Notes None recorded. Medical Equipment None Reported. Allergies Allergen ID Allergen Name Allergen Category Reaction Reaction Severity Criticality Documentation Date Start Date Code Code System Note Provider Name and Address Organization Details Recorded Time 493644 Trulicity medicatio n Not available Not available Not available 06/20/2019 92825 96 RxNorm DAVID MASTERS NP [address] [place], [address], [place] [facility] 0 11:16:57 651592 bupropion Not available Not available Not available Not available 06/20/2019 22457 RxNorm DAVID MASTERS NP [address] [place], [address], [place] [facility] 0 11:17:08 90710 azithromy sean medicatio n Not available Not available Not available 10/03/2018 03803 RxNorm LISSA BLACKWOOD NP [address] [place], [address], [place] [facility] 9 12:56:11 91606 Product containin g penicilli n (product) medicatio n Not available Not available Not available 10/03/2018 36798 8001 SNOMED LISSA BLACKWOOD NP [address], [place], [address], [place] [facility] 9 12:56:17 78819 Substance with sulfonami de structure and antibacte rial mechanism of action (substanc e) medicatio n Not available Not available Not available 10/03/2018 15198 8003 SNOMED LISSA BLACKWOOD , [employer] [address], [place], [address], [place] [facility] 9 12:56:24 97700 morphine medicatio n Not available Not available Not available 10/03/2018 7052 RxNorm LISSA BLACKWOOD , [employer] [address], [place], [address], [place] [facility] 9 12:56:31 63613 Dilaudid medicatio n Not available Not available Not available 10/03/2018 99535 3 RxNorm LISSA BLACKWOOD , [employer] [address], [place], [address], [place] [facility] 9 12:56:36 20599 dulagluti de medicatio n Not available Not available Not available 10/03/2018 98276 91 RxNorm LISSA BLACKWOOD , [employer] [address], [place], [address], [place] [facility] 9 [...] Ultra-Fine Lynnette Pen Needle 32 gauge x /32 10/03 completed Not Available Not Available Not [...] t Available Vitals Date Recorded Oxygen saturation Respiratory rate Heart rate Body temperature Systolic And Diastolic Provider Name and Address Organization Details Last Updated DateTime 3 98 % 18 /min 86 /min 97.8 [degF] 136/74 mm[Hg] Not Available [facility] 3 10:10:01 Date Recorded Oxygen saturation Respiratory rate Heart rate Systolic And Diastolic Provider Name and Address Organization Details Last Updated DateTime 05/22/2020 99 % 20 /min 80 /min 126/62 mm[Hg] Not Available [facility] 1 13:13:50 Date Recorded Oxygen saturation Respiratory rate Heart rate Body temperature Systolic And Diastolic Provider Name and Address Organization Details Last Updated DateTime 1 99 % 18 /min 90 /min 98.2 [degF] 100/60 mm[Hg] Not Available [facility] 1 18:23:35 Date Recorded Oxygen saturation Heart rate Body temperature Respiratory rate Systolic And Diastolic Provider Name and Address Organization Details Last Updated DateTime 1 98 % 86 /min 98 [degF] 18 /min 162/86 mm[Hg] Not Available [facility] 1 09:57:28 Date Recorded Respiratory rate Oxygen saturation Body temperature Heart rate Systolic And Diastolic Provider Name and Address Organization Details Last Updated DateTime 2 16 /min 95 % 96.7 [degF] 89 /min 124/80 mm[Hg] Not Available [facility] 2 12:54:36 Social History Question Answer Notes LastModified by [facility] Details LastModified Time Tobacco Smoking Status Former Smoker LISSA BLACKWOOD, [employer] [address] [facility], [place], [address], [place] [facility] 10/03/2018 13:03:48 Do You Have An Advance [...] Functional Status Question Answer Note LastModified by [facility] Details LastModified Time Do you or have [...] available 10/03 13:03:44 Medical History Condition Response Coronary Artery Disease N COPD N Hypothyroidism N A-fib N Cancer N Stroke N High Cholesterol N Kidney Disease N Diabetes Y CHF N Asthma N Pulmonary Embolism Y Hypertension N Gynecological HistoryNo gynecological history recorded. Obstetrics History GPAL:G 0 P 0 0 0 0 Past Encounters Encounter ID Performer Location Encounter Start Date Encounter Closed Date Diagnosis/Indication Diagnosis SNOMED-CT Code Diagnosis ICD10 Code Diagnosis IMO Codes Diagnosis Note [id number] LISSABRYAN BLACKWOOD NP [facility] [address] [place] [address] 10/03/2018 12:53:09 10/03/2018 18:42:32 Urinary tract infectious disease 06926905 N39.0 [id number] JAQUI DECKER NP [facility] [address] [place] [address] 10/27/2018 13:07:49 10/30/2018 10:59:15 Urinary tract infectious disease 11920134 N39.0 [id number] LISSA BLACKWOOD NP [facility] [address] [place] [address] 01/19/2019 13:15:48 01/22/2019 13:08:55 Urinary tract infectious disease 50946939 N39.0 [id number] NOE ASENCIO [facility] [address] [facility] [place] [address] 02/10/2019 14:31:39 02/12/2019 11:30:19 Inflammation of sacroiliac joint 72444324 M46.1 Sarcoidosis 01358432 D86 .9 [id number] LISSA BLACKWOOD NP [facility] [address] [place] [place] [address] 03/31/2019 14:23:50 04/01/2019 22:04:02 Dysuria 03036446 R30.9 Type 2 bailey betes mellitus without complication 251527183 E11.9 [id number] NOE ASENCIO [facility] [address] [facility] [place] [address] 04/15/2019 16:21:21 04/17/2019 18:26:38 Urinary tract infectious disease 30815923 N39.0 [id number] ADVID MASTERS NP [facility] [address] [place] [address] 06/20/2019 11:15:20 06/21/2019 18:29:19 Dysuria 57676961 R30.9 Urinary tr act infectious disease 34835230 N39.0 Low back pain 984021643 M54.5 [id number] Clarita Buckner NP [facility] [address] [facility] [place] [address] 12/12/2019 15:03:30 12/13/2019 17:39:44 Urinary tract infectious disease 33290413 N39.0 Overview/H istory: Patient is a 49 [...] after care of this patient according to [facility] infection prevention protocols. In order to obtain further informatio n and compare any laboratory results/va lues, I have accessed old patient records. This informatio n was pertinent in my medical decision making today. [id number] Clarita Buckner, JOHNATHAN [facility] [address] [facility] [place] [address] 03/13/2020 16:32:30 03/14/2020 19:02:16 Urinary tract infectious disease 88432130 N39.0 Overview/H istory: Patient is a 49 [...] Her spouse agrees to take her to [facility] ED promptly. Contacted [facility] and gave expect report to staff. Work [...] after care of this patient according to [facility]'s infection prevention protocols. In order to obtain further informatio n and compare any laboratory results/va lues, I have accessed old patient records. This informatio n was pertinent in my medical decision making today. Abdominal pain 45654882 R10.9 [id number] Nicky Krishnamurthy NP [facility] [address] [place] [address] 04/08/2020 14:21:37 04/09/2020 18:39:54 Urinary tract infectious disease 24687456 N39.0 Dehydration 02598141 E86 .0 Diabetes mellitus 867401 09 E11.9 [id number] NOE JONAS [facility] [address] [place] [address] 05/22/2020 13:01:20 05/26/2020 22:09:51 Acute low back pain 719046291 M54.5 Low back strain 61702605 1 S39.012A [id number] Valentina HESS NP [facility] [address] [place] [address] 01/01/2021 18:09:03 01/07/2021 12:07:01 Abrasion of skin of right ear 4688543775 1278914 S00.411A small abrasion at 6 oclock to right external ear canalrepor ts tick removed this morning by her husbandtic k was on her indoor/out door cat she reports tick was removed whole but would like ear to be evaluated for full removal of foreign bodyshe reports using doracs on her husbands phone to see inside her ear and noticed yellow Impacted c erumen in right ear 3126737966 280289 H61.21 scant cerumen noted to 2 oclockremo terra with curette successful lyno traumapati ent tolerated well Tick bite 41451614 W57.X XXA removed intact, not engorged, < 12 hours [id number] SUZETTE COYNE NP [facility] [address] [place] [address] 01/15/2021 09:43:40 01/16/2021 23:05:44 Recurrent urinary tract infection 384791270 N39.0 Pending culture Polyp of nasal cavity 73 1444590 J33.0 Follow up with ENT [id number] Nina Mcdonnell NP [facility] [address] [place] [address] 01/20/2022 12:50:25 01/22/2022 11:35:07 Herpes zoster 9707764 B02.9 Pruritic rash 40289654 L 28.2 [id number] ONE Corona [facility] [address] [place] [address] 02/07/2022 10:04:01 02/11/2022 13:41:45 Cellulitis 882572959 L03.90 Paresthesia 02829369 R20 .2 Health Concerns Section Related Observation LastModified by Organization Detai ls LastModified Time None Recorded Concern Status LastModified by Organization Details LastModified Time None Recorded Advance Directives Directive N: Payers Insurance Date Sequence Insurance Name Policy Number Policy Lara Covered Member ID Lara Member ID Guarantor Name 01/18/2019 1 [place] [employer] Nikky Hernández [id number] Nikky Webster- nandez 10/02/2018 1 *SELF PAY* Nikky Webster- nandez [id number] Nikky Webstre-Her nandez 02/10/2019 1 [place] Nikky Hernández [id number] Nikky Webster- nandez 03/30/2019 1 [place] Nikky Hernández [id number] Nikky Webster-Her nandez 04/09/2020 2 [facility] [id number] Nikky Webster-Her nandez [id number] Nikky Darin-Her nandez 05/22/2020 2 [place] Nikky Webster- nandez [id number] Nikky Webster- nandez 04/09/2020 1 [place] Nikky Webster- nandez [id number] Nikky Webster-Her nandez 05/22/2020 1 [facility] [id number] Nikky Webster- nandez [id number] Nikky Darin- nandez 12/13/2019 2 [place] Nikky Webster-Her nandez [id number] Nikky Darin-Her nandez 04/09/2020 1 [place] [id number] Nikky Webster-Her nandez [id number] Nikky Darin-Her nandez 04/09/2020 2 [place] Nikky Webster- nandez [id number] Nikky Darin-Her nandez 12/13/2019 1 [place] Nikky Webster- nandez [id number] Nikky Darin- nandez 12/13/2019 1 [place] Nikky Webster Edgar [id number] Nikky Webster- nandez 04/06/2019 2 [place] Nikky Webster-Her nandez [id number] Nikky Darin- nandez 06/20/2019 2 [place] Carlos Hernández [id number] Nikky Webster- nandez 02/06/2022 2 [place] Nikky Webster- nandez [id number] Nikky Webster- nandez 02/06/2022 1 [place] [id number] Carlos Hernández [id number] Nikky Darin-Her nandez 02/09/2022 2 [place] [id number] Nikky Darin-Her nandez [id number] Nikky Darin-Her nandez 02/06/2022 2 [place] [id number] Nikky Darin-Her nandez [id number] Nikky Darin-Her nandez 04/20/2022 2 [place] [id number] Nikky Webster Edgar [id number] Nikky Darin- nandez 02/09/2022 1 [place] [id number] Nikky Hernández [id number] Nikky Darin-Her nandez 05/26/2020 2 [place] [id number] Nikky Darin-Her nandez [id number] Nikky Darin-Her nandez 05/26/2020 1 [place] Nikky Darin-Her nandez [id number] Nikky Darin-Her nandez 01/07/2021 1 [place] [id number] Nikky Webster-Her nandez [id number] Nikky Darin-Her nandez 01/07/2021 2 [place] Nikky Webster-Her nandez [id number] Nikky Darin-Her nandez 02/09/2022 1 [place] [id number] Nikky Webster-Her nandez [id number] Nikky Darin-Her nandez 01/07/2021 1 [place] Nikky Webster- nandez [id number] Nikky Darin-Her nandez 01/20/2022 1 [place] [id number] Nikky Darin-Her nandez [id number] Nikky Darin-Her nandez 01/20/2022 2 [place] Nikky Webster- nandez [id number] Nikky Webster-Her nandez 12/04/2021 3 [place] Nikky Hernández [id number] iNkky Webster- nandez 01/07/2021 2 [place] [id number] Nikky Darin-Her nandez [id number] Nikky Darin-Her nandez 12/12/2019 2 [employer] [id number] Carlos Edgar [id number] Nikky Darin-Her nandez Notes Date Note [...] due to charcot syndrome. NOE JONAS [address], [place], [address], [place] [facility] 05/22/2020 14:03:47 01/01/2021 text/html [...] fevers, chills, d/c from right ear. Valentina HESS NP [address], [place], [address], [place] [facility] 01/02/2021 20:43:48 01/15/2021 text/html Patient is 50 year female with PMH of sarcoidosis, CVA, HLD, T2DM, previous spinal surgeries who has been wheelchair bound for 2 years and recurrent UTIs known to [facility] but new to this provider who c/o [...] in size or sensation of irritation. SUZETTE COYNE NP [address], [place], [address], [place] [facility] 01/15/2021 11:08:51 01/20/2022 text/html [...] complaints. Nina Mcdonnell NP [address], [place], [address], [place] [facility] 01/20/2022 13:24:05 02/07/2022 text/html 51 y/o female [...] MENA, dizziness, dysarthria. NOE Corona [address], [place], [address], [place] [facility] 02/07/2022 19:49:49 OBGyn Episode No OBEpisode recorded.
== END 2025-01-01 11:20 | disposition home or self-care (01) ==
LOC: HO.HKA 10:12
PROVIDERS: PCP Internal Medicine; Referring Provider Internal Medicine; Visit Provider Internal Medicine Hypertension Specialist
DX: N18.9 Chronic kidney disease, unspecified (principal); D86.9 Sarcoidosis, unspecified; E11.9 Type 2 diabetes mellitus without complications
CPT/HCPCS: 99204

== ENCOUNTER 2025-01-01 10:57 | Outpatient (REF) | payer BC, MEDICARE, SELFPAY ==
[2025-01-01 13:12] LABS: Appearance Urine Hazy; Glucose Urine UA 250 mg/dL (Negative); PH 6.0 (5.0-9.0); Specific Gravity - Urine >= 1.030 (1.005-1.025); UMIC TRIGGER UA YES
[2025-01-01 13:13] LABS: MANUAL DIFF FLAG NO
[2025-01-01 13:38] LABS: Hematocrit 36.7 % (37.0-47.0); Hemoglobin 11.6 g/dl (12.0-16.0); Imm Gran Abs Auto 0.07 X10*3/uL (0.00-0.03); Imm Gran Pct Auto 0.7 % (0.0-0.4); Lymphocytes Absolute Auto 2.7 X10*3/uL (1.2-4.9); Mean Corpuscular HGB Conc 31.6 g/dl (31.0-35.0); Mean Corpuscular Hemoglobin 26.2 pg (27.0-33.0); Mean Corpuscular Volume 83.0 fL (80.0-98.0); NRBC Abs Auto 0.000 X10*3/uL (0.0-0.012); NRBC Pct Auto 0.0 /100WBC (0.0-0.2); Platelet Count 332 X10*3/uL (160-400); Red Blood Count 4.42 X10*6/uL (4.20-5.50); White Blood Count 10.8 X10*3/uL (4.8-10.8)
[2025-01-01 13:55] LABS: Parathyroid Hormone Intact 82.8 pg/mL (8.7-77.1)
[2025-01-01 14:10] LABS: Total Protein Urine Random 250 mg/dL (<12)
[2025-01-01 14:25] LABS: Erythrocyte Sedimentation Rate 68 MM/HR (0-20)
[2025-01-01 16:08] LABS: Alanine Aminotransferase 11 U/L (0-31); Albumin Level 3.6 g/dL (3.5-5.0); Alkaline Phosphatase 100 U/L (39-117); Anion Gap 10 (12-20); Aspartate Amino Transferase 22 U/L (5-31); Blood Urea Nitrogen 37 mg/dL (9-16); Calcium 9.2 mg/dL (8.4-10.2); Carbon Dioxide 24 mmol/L (22-29); Chloride 104 mmol/L (96-108); Estimated Glomerular Filt Rate 33; Potassium 4.4 mmol/L (3.3-5.1); Sodium 134 mmol/L (135-145); Total Protein 7.5 g/dL (6.5-8.0)
== END 2025-01-01 10:58 | disposition home or self-care (01) ==
LOC: HO.10HDL 10:57
PROVIDERS: Internal Medicine Hypertension Specialist; Visit Provider Psychiatry & Neurology Neurology
DX: E11.22 Type 2 diabetes mellitus with diabetic chronic kidney disease (principal); N18.9 Chronic kidney disease, unspecified; D86.9 Sarcoidosis, unspecified; I69.351 Hemiplegia and hemiparesis following cerebral infarction affecting right dominant side
CPT/HCPCS: 36415; 80053; 81001; 82570; 83970; 84100; 84156; 85025; 85652